=== PATIENT | female | born 1945 | race Caucasian/White ===

== ENCOUNTER → 2017-02-25 | Outpatient (CLI) | payer MEDICARE, MEDICAID ==
--- NOTE | 2017-02-25 13:43 | DIREP ---
PROCEDURE:CT CHEST ABDOMEN PELVIS W/CONTRAST, CT CHEST WITHOUT CONTRAST, COMBINED REPORT COMPARISON:[facility], CT, CT-CTA ABDOMEN/PELVIS W/WO CONTRAST, 08/27/2012, 12:15 PM. INDICATIONS:WEIGHT LOSS, POSS LUNG CANCER, TOBACCO DEPENDENCE TECHNIQUE:After obtaining the patient's consent, CT images were obtained without and with non-ionic intravenous contrast material. Oral contrast was also given. FINDINGS: CHEST: LUNGS:No pulmonary consolidation or mass. There is a 1.3 cm bulla in the right lower lobe.. MEDIASTINUM:Normal. CARDIAC:Normal heart size. No pericardial effusion. PLEURA/CHEST WALL:Normal. OTHER:Normal. ABDOMEN/PELVIS: LIVER/BILIARY:There are 2 sub cm areas in the right hepatic lobe liver too small to characterize but likely represent benign hemangiomas or benign cysts. Cholecystectomy clips. No biliary ductal dilatation. PANCREAS:Normal. SPLEEN:Normal. KIDNEYS:Normal. ADRENALS:Normal. AORTA/VASCULAR:There is scattered calcification in the abdominal and minimal calcification in the thoracic aorta. No aortic aneurysm or dissection. RETROPERITONEUM:Normal. BOWEL/MESENTERY:Compare to 08/27/2012, the patient has undergone interval surgical removal of the cecum, ascending, and proximal transverse colon with an enterocolic surgical anastomosis noted in the mid transverse colon. No intestinal obstruction, free air, free fluid, or mesenteric inflammation. Multiple colonic diverticula without diverticulitis. ABDOMINAL WALL:Normal. PELVIC NODES:Normal. PELVIC ORGANS:Normal. BONES:No acute pathology. Minimal degenerative changes of the spine. CONCLUSION: 1. No evidence of lung mass or other acute cardiac or pulmonary disease. 2. Previous right hemicolectomy and cholecystectomy. 3. There is no finding on this examination which would account for the patient's history of weight loss. 4. There are 2 subcentimeter low-density areas in the right hepatic lobe which are too small to characterize but which likely represent benign hemangiomas or benign cysts. Dictated by: Mauricio Dickson M.D. on 02/25/2017 at 01:30 PM
--- NOTE | 2017-02-25 13:44 | DIREP ---
PROCEDURE:CT CHEST W/O COMPARISON:None. INDICATIONS:WEIGHT LOSS, POSS LUNG CANCER, NAUSEA, TOBACCO DEPENDENCE TECHNIQUE:Helical sections through the chest were performed from the lung apices through the diaphragms without IV contrast. Sagittal and coronal reconstructions are obtained from source images. FINDINGS: CONCLUSION:Please see the combined report of CT scan of the chest without contrast, and CT scan of the chest abdomen and pelvis with IV contrast, 02/25/2017. Dictated by: Mauricio Dickson M.D. on 02/25/2017 at 01:43 PM
== END | disposition home or self-care (01) ==
LOC: RAD 09:20
PROVIDERS: ATTEND Family Medicine
DX: R63.4 Abnormal weight loss (principal); R11.0 Nausea; F17.200 Nicotine dependence, unspecified, uncomplicated; Z90.49 Acquired absence of other specified parts of digestive tract
CPT/HCPCS: 36415; 71270; 74177; 82565; Q9967

== ENCOUNTER 2020-06-25 10:02 | Inpatient (IN) | payer MEDICARE, MEDICAID ==
[~2020-06-25] VITALS: Ht 162.6 cm; Wt 61.2 kg
[2020-06-25] VITALS (8 sets, daily range): BP systolic 116–157; BP diastolic 54–94
[~2020-06-25 10:02] MED LIST: AMLO-169 PO; ASPI81TA52 PO; BENZ0.5T35 PO; ESOM40CA PO; FENO145T17 PO; GABA600T7 PO; HALO5TAB PO; LEVO5TAB2 PO; LEVO75TA6 PO; LOSA50TA14 PO; MIRT30TA4 PO; ROPI0.5T PO
[2020-06-25] MEDS ORDERED: ZOFRAN IV STA (10:07)
[2020-06-25] MEDS ORDERED: MORPHINE SULFATE IV STA (10:07)
--- NOTE | 2020-06-25 10:11 | NUR ---
ARRIVAL PATIENT ARRIVED TO ED3 VIA [facility] BY [facility], C/O OF LEFT LEG PAIN FROM A FALL LAST NIGHT AT APPROX 2130, PATIENT STATES SHE LAID ON THE FLOOR UNTIL HER HOME HEALTH NURSE FOUND HER, EMS INITIATED A 20G TO THE RIGHT AC AND GAVE FENTANYL 25MIC IV REVENUE AGENT, SHIPWRIGHT APPLIED AND VITAL SIGNS OBTAINED, DOCTOR TRENTON TO ROOM TO SEE PATIENT.
--- NOTE | 2020-06-25 10:22 | ER.PDOC ---
General Chief Complaint: Trauma Stated Complaint: FALL Time seen by MD: 11:11 Source: patient Exam Limitations: no limitations History of Present Illness Onset: yesterday Where: home Context: fall Severity: moderate Allergies: Coded Allergies: sulfamethoxazole (Verified Allergy, Unknown, 04/14/18) tetanus and diphtheria toxoids (Verified Allergy, Unknown, 04/14/18) trimethoprim (Verified Allergy, Unknown, 04/14/18) Home Meds Reported Medications Haloperidol (HALOPERIDOL) 5 Mg Tablet, 1 TAB PO HS, #30 TAB 2 Refills 04/14/18 Mirtazapine (MIRTAZAPINE) 30 Mg Tablet, 1 TAB PO HS, #30 TAB 2 Refills 04/14/18 Losartan Potassium (LOSARTAN POTASSIUM) 50 Mg Tablet, 1 TAB PO DAILY, #90 TAB 3 Refills 04/14/18 Levocetirizine Dihydrochloride (LEVOCETIRIZINE DIHYDROCHLORIDE) 5 Mg Tablet, 1 TAB PO HS, #30 TAB 5 Refills 04/14/18 Aspirin (ASPIR-LOW) 81 Mg Tablet.dr, 1 TAB PO DAILY, #90 TAB 3 Refills 04/14/18 Ropinirole Hcl (REQUIP) 0.5 Mg Tablet, 1 TAB PO HS, #30 TAB 2 Refills 04/14/18 Levothyroxine Sodium (LEVOTHYROXINE SODIUM) 75 Mcg Tablet, 1 TAB PO DAILY, #90 TAB 3 Refills 04/14/18 Amlodipine Besylate (AMLODIPINE BESYLATE) 5 Mg Tablet, 1 TAB PO DAILY, #90 TAB 3 Refills 04/14/18 Benztropine Mesylate (BENZTROPINE MESYLATE) 0.5 Mg Tablet, 1 TAB PO BID, #60 TAB 2 Refills 04/14/18 Fenofibrate Nanocrystallized (FENOFIBRATE) 145 Mg Tablet, 1 TAB PO DAILY, #90 TAB 3 Refills 04/14/18 Esomeprazole Magnesium (NEXIUM) 40 Mg Capsule.dr, 1 CAP PO DAILY, #90 CAP 3 Refills 04/14/18 Gabapentin (GABAPENTIN) 600 Mg Tablet, 1 TAB PO HS, #90 TAB 04/14/18 Past Medical History Medical History: thyroid disease, other Surgical History: cholecystectomy, other Social History Alcohol Use: none Drug Use: none Reviewed Nursing Reviewed: Vital Signs, Abn. Noted Review of Systems All Other Systems: Reviewed and Negative Physical Exam General Appearance: Alert, No Apparent Distress Foot: nml inspection, non-tender, nml color/temp, skin intact Ankle: nml inspection, non-tender, nml ROM, no joint swelling, skin intact Knee: nml inspection, non-tender, nml ROM, no joint swelling Thigh/Hip: tenderness, swelling, ecchymosis, limited hip ROM by pain, hip pain on leg movement 1 - tender, deformity Gait: unable to bear weight Neuro/Vasc/Tendon: sensation nml, motor nml, no vascular compromise, tendon function nml Skin: warm/dry Head/ENT: nml inspection, pharynx nml Neck/Back: nml inspection, non-tender Abdomen: non-tender, pelvis stable Results/Orders Results/Orders Orders - KINDRA CHOWDHURY MD Cbc With Auto Diff (06/25/20 10:04) Comprehensive Metabolic Panel (06/25/20 10:04) Creatine Kinase (06/25/20 10:04) Creatine Kinase Mb (06/25/20 10:04) Troponin I (06/25/20 10:04) Probnp B-Type Flight/Transport Nurse (06/25/20 10:04) PT (06/25/20 10:04) Partial Thromboplastin Time. (06/25/20 10:04) Xr Chest 1v (06/25/20 10:04) Ekg-Routine (06/25/20 10:04) Type And Screen (06/25/20 10:04) Xr Femur Lt (06/25/20 10:06) Morphine Sulfate (Morphine Sulfate) (06/25/20 10:07) 0.9 % Sodium Chloride (Ns 1000ml) (06/25/20 10:30) Ondansetron Hcl/Pf (Zofran) (06/25/20 10:07) [place] (06/25/20 10:09) Urinalysis (06/25/20 10:09) 0.9 % Sodium Chloride (Ns 1000ml) (06/25/20 10:24) Ondansetron Hcl/Pf (Zofran) (06/25/20 10:25) Morphine Sulfate (Morphine Sulfate) (06/25/20 10:25) Vital Signs Date Time Temp Pulse Resp B/P (MAP) Pulse Ox O2 Delivery O2 Flow Rate FiO2 06/25/20 11:30 97.1 76 18 143/94 (110) 96 Room Air 06/25/20 11:30 18 06/25/20 11:00 18 06/25/20 11:00 97.1 76 18 116/54 (74) 96 Room Air 06/25/20 10:30 18 06/25/20 10:30 97.1 75 18 137/80 (99) 96 Room Air 06/25/20 10:07 18 06/25/20 10:03 97.1 80 18 96 06/25/20 10:03 97.1 80 18 157/76 (103) 96 Room Air 06/25/20 10:03 97.1 80 18 Administered Medications Medications (Trade) Dose Ordered Sig/Reji Route PRN Reason Start Time Stop Time Status Last Admin Dose Admin Morphine Sulfate (Morphine Sulfate) 4 mg STAT STAT IV 06/25/20 10:07 06/25/20 10:09 DC 06/25/20 10:35 4 MG Ondansetron HCl (Zofran) 4 mg STAT STAT IV 06/25/20 10:07 06/25/20 10:09 DC 06/25/20 10:39 4 MG Sodium Chloride 1,000 ml @ 0 mls/hr Q0M ONCE IV 06/25/20 10:30 06/25/20 10:31 DC 06/25/20 10:35 1,000 MLS/HR Laboratory Tests Test 06/25/20 10:20 White Blood Count 20.0 10^3/uL (4.5-11.0) H Red Blood Count 4.20 10^6/uL (4.00-5.20) Hemoglobin 13.1 g/dL (12.0-15.0) Hematocrit 37.4 % (36.0-46.0) Mean Corpuscular Volume 89.0 fL (78-100) Mean Corpuscular Hemoglobin 31.2 pg (26-34) Mean Corpuscular Hemoglobin Concent 35.0 g/dL (33-36.5) Red Cell Distribution Width 13.1 % (11.5-14.5) Platelet Count 331 10^3/uL (150-400) Mean Platelet Volume 9.8 fL (7.8-11.0) Neutrophils (%) (Auto) 88.1 % (41.0-85.0) H Lymphocytes (%) (Auto) 4.0 % (24.0-44.0) *L Monocytes (%) (Auto) 7.6 % (5.0-12.0) Neutrophils # (Auto) 17.6 10^3/uL (1.8-7.7) H Lymphocytes # (Auto) 0.79 10^3/uL1 (1.0-4.8) L Monocytes # (Auto) 1.5 10^3/uL (0.3-0.8) H Absolute Immature Granulocyte (auto 0.04 10^3 u/L (0-2) Absolute Eosinophils (auto) 0.0 10^3/uL (0.0-0.2) Immature Granulocytes % 0.20 % (0.00-0.50) Eosinophils % 0.0 % (0.0-5.0) Basophils % 0.1 % (0.0-0.2) Basophils # 0.0 10^3/uL (0.0-0.1) Prothrombin Time 10.6 SEC (9.3-11.3) Prothrombin Time INR (Non-Therap) 1.0 Activated Partial Thromboplast Time 26.5 SEC (24.67-30.72) Sodium Level 128 mmol/L (132-145) L Potassium Level 3.9 mmol/L (3.6-5.2) Chloride Level 93.0 mmol/L (96-109) L Carbon Dioxide Level 23.1 mmol/L (20.0-32) Anion Gap 15.8 Blood Urea Nitrogen 8 mg/dL (7-18) Creatinine 0.96 mg/dL (0.59-1.40) Estimated GFR () 68.4 (>/=60) Est GFR (CKD-EPI)(Non-Afr Malagasy) 56.5 (>/=60) BUN/Creatinine Ratio 8.0 Glucose Level 181 mg/dL (70-110) H Calcium Level 8.9 mg/dL (8.4-10.5) Total Bilirubin 0.3 mg/dL (0.2-1.0) Aspartate Amino Transferase (AST) 21 U/L (0-35) Alanine Aminotransferase (ALT) 13 U/L (12-78) Alkaline Phosphatase 111 U/L (50-136) Total Creatine Kinase 253 U/L (26-192) H Creatine Kinase MB 2.8 ng/mL (0.5-3.6) Troponin I < 0.02 ng/mL (0.00-0.05) Pro-B-Type Natriuretic Peptide 76 pg/mL (0-450) Total Protein 6.7 g/dL (6.4-8.2) Albumin 3.4 g/dL (3.4-5.0) Globulin 3.3 Albumin/Globulin Ratio 1.030 Blood Bank Test 06/25/20 10:20 Antibody Screen NEGATIVE Blood Type A NEGATIVE Consult/PCP Time Consult/PCP Called: 11:22 Consult/PCP: DR TODD, DR UNGER, ER DEPART Departure Time of Disposition: 12:00 Disposition: ADMITTED INPATIENT Impression: Primary Impression: Fracture, hip Condition: Improved Referrals: STEVEN CAUSEY (PCP) PRIMARY CARE PROVIDER Duration or Time Spent with Pa: KINDRA HUNG MD Jun 25, 2020 10:22
[2020-06-25] MEDS ORDERED: NS 1000ML 1,000 ML ONE (10:24)
[2020-06-25] MEDS ORDERED: ZOFRAN ONE (10:25)
[2020-06-25] MEDS ORDERED: MORPHINE SULFATE ONE (10:25)
[2020-06-25 10:26] LABS: BASOPHIL % 0.1 % (0.0-0.2); LYMPHOCYTES # 0.79 10^3/uL1 (1.0-4.8); MEAN CORP HGB 31.2 pg (26-34); MONOCYTES # 1.5 10^3/uL (0.3-0.8); MONOCYTES % 7.6 % (5.0-12.0); NEUTROPHIL # 17.6 10^3/uL (1.8-7.7); NEUTROPHILS % 88.1 % (41.0-85.0); PLATELET COUNT 331 10^3/uL (150-400); RED CELL DISTRIBUTION WIDTH 13.1 % (11.5-14.5)
[2020-06-25] MEDS ORDERED: NS 1000ML 1,000 ML IV ONE (10:30)
[2020-06-25 10:58] LABS: ALANINE AMINOTRANSFERASE(ML) 13 U/L (12-78); ALKALINE PHOSPHATASE 111 U/L (50-136); ASPARTATE AMINO TRANSFERASE 21 U/L (0-35); CALCIUM 8.9 mg/dL (8.4-10.5); CARBON DIOXIDE 23.1 mmol/L (20.0-32); GLUCOSE 181 mg/dL (70-110)
--- NOTE | 2020-06-25 11:01 | PCM.EKG ---
[facility] Test Date: 2020-06-25 Test Time: 10:58:15 Pat Name: GODFREY BRUNSON Department: Room: Gender: F Reject Opener And Filler: VIC : 1945 Requested By: KINDRA CHOWDHURY Order Number: [id number] Reading MD: Measurements Intervals [place] Rate: 73 P: -25 WA: 157 QRS: 75 QRSD: 85 T: 72 QT: 388 QTc: 428 Interpretive Statements Sinus rhythm Atrial premature complexes Probable left atrial enlargement Minimal ST elevation, anterior leads Compared to ECG 04/14/2018 13:31:55 Atrial premature complex(es) now present ST (T wave) deviation now present Please click the below link to view image of tracing.
--- NOTE | 2020-06-25 11:23 | NUR ---
PEREZ CHOWDHURY ATTEMPTED TO CALL DOCTOR TODD, LEFT MESSAGE.
--- NOTE | 2020-06-25 11:43 | NUR ---
PEREZ CHOWDHURY SPOKE WITH DOCTOR TODD, WILL CONSULT IF HOSPITALIST WILL ADMIT.
--- NOTE | 2020-06-25 11:45 | NUR ---
CORNEL CHOWDHURY ATTEMPTED TO CALL DOCTOR UNGER LEFT MESSAGE.
--- NOTE | 2020-06-25 12:11 | DIREP ---
PROCEDURE:CHEST 1 VIEW COMPARISON:None. INDICATIONS:fall FINDINGS: LUNGS/PLEURA:No significant pulmonary parenchymal abnormalities. No effusions. VASCULATURE:Normal. Unremarkable pulmonary vasculature. CARDIAC:Normal. No cardiac silhouette abnormality or cardiomegaly. MEDIASTINUM:Calcified plaque in the aorta. BONES:Bones are osteopenic. OTHER:Negative. CONCLUSION:No acute cardiopulmonary findings. Dictated by: Delfin Lock M.D. on 06/25/2020 at 12:04 PM
--- NOTE | 2020-06-25 12:12 | DIREP ---
PROCEDURE:XRAY FEMUR 2 VWS-LT COMPARISON:None. INDICATIONS:fall FINDINGS: BONES:Comminuted fracture of the femoral inter trochanteric region extends to the femoral metaphysis. With displaced fragments of the lesser trochanter, greater trochanter. Bones are osteopenic. Small osteophytes throughout the knee. JOINTS:Moderate right hip joint space loss. Severe medial compartment knee joint space loss. SOFT TISSUES:Normal. OTHER:No additional findings. CONCLUSION:Acute comminuted fracture of the femoral inter trochanteric region. Dictated by: Delfin Lock M.D. on 06/25/2020 at 12:10 PM
[2020-06-25 12:33] LABS: BAND NEUTROPHILS 1 % (2-6); LYMPHOCYTE 5 % (25-36); MONOCYTE 8 % (3-9); SEGMENTED NEUTROPHILS 86 % (31-76)
[2020-06-25] MEDS ORDERED: LOVENOX SQ STA (12:44)
--- NOTE | 2020-06-25 12:47 | DIREP ---
PROCEDURE:XRAY PELVIS 1-2 VWS COMPARISON:None. INDICATIONS:HIP INJURY FINDINGS: BONES:Bones are osteopenic. There is a comminuted left femoral inter trochanteric fracture. Displaced fragments of the lesser trochanter and greater trochanter. JOINTS:Normal. SOFT TISSUES:Normal. OTHER:No additional findings. CONCLUSION:Acute left femoral inter trochanteric fracture. Dictated by: Delfin Lock M.D. on 06/25/2020 at 12:45 PM
--- NOTE | 2020-06-25 12:47 | NUR ---
INTAKE /OUTPUT NO INTAKE/ 200ML OUTPUT VIA PORTILLO.
--- NOTE | 2020-06-25 12:48 | NUR ---
ANESTHESIA GLENYS URBINA [employer]ICAL MARKETING MANAGER NOTIFIED OF SURGERY IN AM.
[2020-06-25] MEDS ORDERED: ZOFRAN IV PRN (13:00)
[2020-06-25] MEDS ORDERED: MORPHINE SULFATE IV PRN ×2 (13:00→16:33)
--- NOTE | 2020-06-25 13:36 | PCM.HP ---
History of Present Illness Hx of Present Illness 74-year-old female who has past medical history significant for schizophrenia, COPD, DM, active smoking, hypothyroidism who presented to ED after she fell in the kitchen yesterday night. Patient was using a walker loss balance and sustained a GLF. She complain of severe pain to the left hip and was not able to raise up from the floor. Early this morning she was found laying in the floor by a visiting nurse. She was brought to the ED where she was evaluated and found to have Acute left femur intertrochanteric fracture. Patient is admitted for orthopedic evaluation. Past Medical History PMH-Pulmonary: (1) COPD (chronic obstructive pulmonary disease) Status: Chronic ICD Code: J44.9 - Chronic obstructive pulmonary disease, unspecified SNOMED: 30454742 PMH-Psych: (1) Paranoid schizophrenia Status: Chronic ICD Code: F20.0 - Paranoid schizophrenia SNOMED: 84610286 Psychiatric: Schizophrenia PMH-Endocrine: (1) Diabetes 1.5, managed as type 2 Status: Chronic ICD Code: E10.9 - Type 1 diabetes mellitus without complications SNOMED: 083740217 Travel History EBOL[place] RISK:Travel to/contact w: No Review of Systems Musculoskeletal: leg pain Neurological: Weakness (Generalized weakness. Patient use a walker), Confusion Allergies: Coded Allergies: sulfamethoxazole (Verified Allergy, Unknown, 04/14/18) tetanus and diphtheria toxoids (Verified Allergy, Unknown, 04/14/18) trimethoprim (Verified Allergy, Unknown, 04/14/18) Scheduled Amlodipine Besylate (Amlodipine Besylate), 1 TAB PO DAILY, (Reported) Aspirin (Aspir-Low), 1 TAB PO DAILY, (Reported) Benztropine Mesylate (Benztropine Mesylate), 1 TAB PO BID, (Reported) Esomeprazole Magnesium (Nexium), 1 CAP PO DAILY, (Reported) Fenofibrate Nanocrystallized (Fenofibrate), 1 TAB PO DAILY, (Reported) Gabapentin (Gabapentin), 1 TAB PO HS, (Reported) Haloperidol (Haloperidol), 1 TAB PO HS, (Reported) Levocetirizine Dihydrochloride (Levocetirizine Dihydrochloride), 1 TAB PO HS, (Reported) Levothyroxine Sodium (Levothyroxine Sodium), 1 TAB PO DAILY, (Reported) Losartan Potassium (Losartan Potassium), 1 TAB PO DAILY, (Reported) Mirtazapine (Mirtazapine), 1 TAB PO HS, (Reported) Ropinirole Hcl (Requip), 1 TAB PO HS, (Reported) VTE VTE Risk Total Score: 2 VTE Risk Score VTE Risk: Score 0-1 = Low Risk (Aggressive mobilization; early ambulation; no VTE prophylaxis required) Score 2: Moderate Risk (Intermittent/Pneumatic Compression Device OR Lovenox/Heparin/Coumadin) Score 3-4: High Risk (Intermittent/Pneumatic Compression Device AND Lovenox/Heparin/Coumadin) Score > or =5: Highest Risk (Intermittent/Pneumatic Compression Device AND Lovenox/Heparin/Coumadin) Antico:Hep/LMWH/Coum/Xarelto: Yes Mechanical device ordered: Yes VTE VTE Present on Admission: No Currently receiving anticoagul: No VTE Risk Total Score: 2 Antico:Hep/LMWH/Coum/Xarelto: Yes Mechanical device ordered: Yes Exam Vital Signs Vital Signs Date Time Temp Pulse Resp B/P (MAP) Pulse Ox O2 Delivery O2 Flow Rate FiO2 06/25/20 12:46 97.1 76 18 131/59 (83) 96 Room Air General Appearance: Alert, Oriented X3, Cooperative HEENT: Atraumatic, PERRLA Respiratory: Clear to auscultation Cardiovascular: Regular rate, Other Abdominal: Normal bowel sounds Extremities: No cyanosis, No edema, No tenderness/swelling (To left hip area) Skin: No rash, No breakdown Neuro: Normal speech, Strength at 5/5 X4 ext Psych/Mental Status: Mental status NL, Mood NL, Other Assessment/Plan Assessment/Plan Assessment/Plan 74-year-old female with history of paranoid schizophrenia, diabetes mellitus, COPD, hypothyroidism presented to ED after she had GLF. In ED patient was found to have a left hip fracture. Patient will be consulted by orthopedist. Patient History: Patient reports no known family medical history. Plan 1. Left hip fracture Patient is prone to fall and is using a walker. She sustained a prior fracture of the femur on the right side that was repaired last year. She will require PT OT evaluation and possible referral for rehab. Tamayo KATHRYN Perioperative risk is 0.4%. Risk of myocardial infarction or cardiac arrest intraoperatively or after 30 days postop. plan N.p.o. from midnight. Orthopedic consult Pain management Resume home meds. Problems 2. COPD Patient is a long-term smoker. Currently on inhalers. No evidence of acute exacerbation Resume inhalers Nicotine patch 3. Hypothyroidism Resume Synthroid 25 mcg daily 4. Paranoid schizophrenia. Relatively stable. Patient is on multiple medications including Haldol, benztropine, gabapentin, Plan Resume home medications 5. diabetes mellitus type Plan SSI BOBBY BROOKS MD Jun 25, 2020 13:36
[2020-06-25] MEDS ORDERED: LOVENOX SQ ONE (14:10)
[2020-06-25] MEDS: ULTRAM PO PRN ×4 (14:44→22:29)
[2020-06-25] MEDS: HUMULIN R SQ SCH ×2 (17:28→21:00)
[2020-06-25] MEDS ORDERED: REQUIP ONE (20:19)
[2020-06-25] MEDS ORDERED: HALDOL ONE (20:21)
[2020-06-25] MEDS ORDERED: COGENTIN ONE (20:21)
[2020-06-25] MEDS: REMERON PO SCH (20:59)
[2020-06-25] MEDS: HALDOL PO SCH (21:00)
[2020-06-25] MEDS: NEURONTIN PO SCH (21:01)
[2020-06-25] MEDS: COGENTIN PO SCH (21:02)
[2020-06-25] MEDS: REQUIP PO SCH (21:02)
[2020-06-25] MEDS ORDERED: NICOTINE 21MG PATCH TD ONE (21:45)
[2020-06-25] MEDS: NICOTINE 21MG PATCH TD SCH (22:28)
[2020-06-26] VITALS (11 sets, daily range): BP systolic 84–149; BP diastolic 46–84
--- NOTE | 2020-06-26 00:15 | CNH ---
DATE OF CONSULTATION: 06/25/2020 CHIEF COMPLAINT: Painful left hip. HISTORY OF PRESENT ILLNESS: The patient is a 74-year-old female who is a household ambulator with a walker, fell at home yesterday afternoon and was unable to ambulate. She was not found until this morning when she was found by a neighbor brought to the [facility] for further evaluation and treatment. The patient denies any other areas of tenderness or deformity. PHYSICAL EXAMINATION: EXTREMITIES: The patient's exam today shows that she has shortening and external rotation of the left hip and left lower extremity. She has no open wounds or fracture blisters. There is decreased range of motion about the left hip secondary to pain. She has no tenderness about the left knee, left lower leg, foot or ankle. Her upper extremities and the right lower extremity have no areas of tenderness or deformity. NEUROLOGIC: The patient is awake and alert. She is oriented x 3. Cranial nerves 2-12 grossly intact. She has good dorsi and plantar flexion of her left foot and ankle with normal sensation. IMAGING STUDIES: The x-rays showed that she has a displaced 4-part left intertrochanteric fracture of the hip. ASSESSMENT: Closed displaced intertrochanteric fracture, left hip. PLAN: The patient will be admitted by the hospitalist. The patient once is stabilized, will be taken to the operating room for open reduction and internal fixation. The patient understands the risks and hazards of the treatment plan and agrees. Arnaldo Nix MD DR: DEVANG/tejal JOB# [id number]
--- NOTE | 2020-06-26 04:11 | NUR ---
Surgical bath given. Linens and gown changed. Consent for procedure signed. Will continue to monitor.
[2020-06-26 05:55] LABS: APPEARANCE,URINE CLOUDY (CLEAR); BILIRUBIN,URINE NEGATIVE (NEGATIVE); UA COLOR YELLOW (YELLOW); UROBILINOGEN,URINE 0.2 (NEGATIVE)
[2020-06-26] MEDS: SYNTHROID PO SCH (06:30)
[2020-06-26] MEDS: HUMULIN R SQ SCH ×4 (07:30→21:00)
[2020-06-26] MEDS ORDERED: NS 1000ML 1,000 ML ONE ×3 (08:42→16:30)
--- NOTE | 2020-06-26 08:52 | NUR ---
Prt was alert and oriented with no sign of distress. Pt is taken to surgery. Morning Meds are held and Pt daughter is aware of pt going to surgery
[2020-06-26] MEDS: COGENTIN PO SCH ×2 (09:00→20:55)
[2020-06-26] MEDS ORDERED: DILAUDID IV ONE (11:00)
[2020-06-26] MEDS ORDERED: ANCEF ONE (12:15)
[2020-06-26] MEDS ORDERED: NS 100ML 100 ML IV ONE (12:15)
[2020-06-26] MEDS ORDERED: SODIUM CHLORIDE IRR BOTTLE IR ONE ×2 (12:21→15:33)
[2020-06-26] MEDS ORDERED: SENSORCAINE 0.5% VIAL ONE (13:01)
[2020-06-26] MEDS ORDERED: OFIRMEV 100 ML IV ONE (13:01)
[2020-06-26] MEDS ORDERED: ZOFRAN ONE (13:02)
[2020-06-26] MEDS ORDERED: VERSED ONE (13:02)
[2020-06-26] MEDS ORDERED: TRANEXAMIC ACID ONE (13:02)
[2020-06-26] MEDS ORDERED: LIDOCAINE 2% VIAL ONE (13:02)
[2020-06-26] MEDS ORDERED: DIPRIVAN IV ONE (13:03)
[2020-06-26] MEDS ORDERED: SUBLIMAZE ONE (13:03)
[2020-06-26] MEDS ORDERED: WATER ONE (13:57)
--- NOTE | 2020-06-26 14:10 | PRM.PN ---
Subjective Subjective Date: Jun 26, 2020 Time: 14:07 Subjective 74-year-old female with history of fall with left intertrochanteric fracture. Patient is scheduled for surgery today. She has prior history of active smoking, schizophrenia. She also has COPD which appears stable. Patient History: Patient reports no known family medical history. VTE VTE Risk Total Score: 2 VTE Risk Score VTE Risk: Score 0-1 = Low Risk (Aggressive mobilization; early ambulation; no VTE prophylaxis required) Score 2: Moderate Risk (Intermittent/Pneumatic Compression Device OR Lovenox/Heparin/Coumadin) Score 3-4: High Risk (Intermittent/Pneumatic Compression Device AND Lovenox/Heparin/Coumadin) Score > or =5: Highest Risk (Intermittent/Pneumatic Compression Device AND Lovenox/Heparin/Coumadin) Antico:Hep/LMWH/Coum/Xarelto: Yes Mechanical device ordered: Yes Review of Systems Musculoskeletal: leg pain Neurological: Weakness (Generalized weakness. Patient use a walker), Confusion Allergies: Coded Allergies: sulfamethoxazole (Verified Allergy, Unknown, 04/14/18) tetanus and diphtheria toxoids (Verified Allergy, Unknown, 04/14/18) trimethoprim (Verified Allergy, Unknown, 04/14/18) Scheduled Amlodipine Besylate (Amlodipine Besylate), 1 TAB PO DAILY, (Reported) Aspirin (Aspir-Low), 1 TAB PO DAILY, (Reported) Benztropine Mesylate (Benztropine Mesylate), 1 TAB PO BID, (Reported) Esomeprazole Magnesium (Nexium), 1 CAP PO DAILY, (Reported) Fenofibrate Nanocrystallized (Fenofibrate), 1 TAB PO DAILY, (Reported) Gabapentin (Gabapentin), 1 TAB PO HS, (Reported) Haloperidol (Haloperidol), 1 TAB PO HS, (Reported) Levocetirizine Dihydrochloride (Levocetirizine Dihydrochloride), 1 TAB PO HS, (Reported) Levothyroxine Sodium (Levothyroxine Sodium), 1 TAB PO DAILY, (Reported) Losartan Potassium (Losartan Potassium), 1 TAB PO DAILY, (Reported) Mirtazapine (Mirtazapine), 1 TAB PO HS, (Reported) Ropinirole Hcl (Requip), 1 TAB PO HS, (Reported) Objective Vitals and I/O Vital Sign - Last 24 Hours 11/15/20 06/25/20 06/25/20 06/26/20 16:13 20:15 22:55 00:15 Temp 98.1 98.5 98.3 Pulse 74 72 86 Resp 20 20 B/P (MAP) 132/60 (84) 103/46 (65) Pulse Ox 97 95 O2 Delivery Room Air Room Air Room Air 06/26/20 06/26/20 06/26/20 04:00 07:26 07:30 Temp 98.1 97.7 Pulse 80 74 Resp 18 18 B/P (MAP) 149/47 (81) 143/57 (85) Pulse Ox 97 93 O2 Delivery Room Air Room Air Intake and Output 06/26/20 06:59 Intake Total 850 ml Output Total 1100 ml Balance -250 ml General: Alert, Oriented X3, Cooperative HEENT: Atraumatic, PERRLA Lungs: Clear to auscultation Heart: Regular rate, Other Abdomen: Normal bowel sounds Extremities: No cyanosis, No edema, No tenderness/swelling (To left hip area) Neuro: Normal speech, Strength at 5/5 X4 ext Psych/Mental Status: Mental status NL, Mood NL, Other All Results(Lab/Rad) Laboratory Tests Test 06/25/20 16:46 06/25/20 21:00 06/26/20 04:37 06/26/20 05:30 Bedside Glucose 117 189 142 Urine Collection Type VOID Urine Color YELLOW Urine Appearance CLOUDY Urine Bilirubin NEGATIVE MG/DL Urine Ketones NEGATIVE Urine Specific Hamilton 1.020 Urine pH 5.5 Urine Protein NEGATIVE Urine Urobilinogen 0.2 Urine Nitrate NEGATIVE Urine Leukocyte Esterase SMALL Urine Blood TRACE Urine RBC 0-2 RBC/HPF Urine WBC 10-25 WBC/HPF Urine Squamous Epithelial Cells FEW #/HPF Urine Bacteria MANY Urine Glucose NEGATIVE Test 06/26/20 09:15 Bedside Glucose 124 Current Medications Medications (Trade) Dose Ordered Sig/Reji Route PRN Reason Start Time Stop Time Status Last Admin Dose Admin Morphine Sulfate (Morphine Sulfate) 4 mg STAT STAT IV 06/25/20 10:07 06/25/20 10:09 DC 06/25/20 10:35 Sodium Chloride 1,000 ml @ 0 mls/hr Q0M ONCE IV 06/25/20 10:30 06/25/20 10:31 DC 06/25/20 10:35 Ondansetron HCl (Zofran) 4 mg STAT STAT IV 06/25/20 10:07 06/25/20 10:09 DC 06/25/20 10:39 Sodium Chloride 1,000 ml @ ud STK-MED ONCE .ROUTE 06/25/20 10:24 06/25/20 10:26 DC Ondansetron HCl (Zofran) 4 mg STK-MED ONCE .ROUTE 06/25/20 10:25 06/25/20 10:26 DC Morphine Sulfate (Morphine Sulfate) 4 mg STK-MED ONCE .ROUTE 06/25/20 10:25 06/25/20 10:27 DC Tramadol HCl (Ultram) 50 mg Q4HR PRN PO PAIN 1 - 3 06/25/20 13:00 07/25/20 12:59 06/25/20 22:29 Tramadol HCl (Ultram) 100 mg Q4HR PRN PO PAIN 4 - 6 06/25/20 13:00 07/25/20 12:59 Morphine Sulfate (Morphine Sulfate) 3 mg Q6HR PRN IV PAIN 7 - 10 06/25/20 13:00 06/25/20 16:33 DC Ondansetron HCl (Zofran) 4 mg Q4H PRN IV NAUSEA / VOMITING 06/25/20 13:00 07/25/20 12:59 Enoxaparin Sodium (Lovenox) 40 mg STAT STAT SQ 06/25/20 12:44 06/25/20 14:06 DC 06/25/20 14:43 Insulin Human Regular (Humulin R) ACHS SQ 06/25/20 17:30 07/25/20 17:29 Enoxaparin Sodium (Lovenox) 40 mg STK-MED ONCE SQ 06/25/20 14:10 06/25/20 14:12 DC Amlodipine Besylate (Norvasc) 5 mg DAILY PO 06/26/20 09:00 07/26/20 08:59 Aspirin (Aspirin Ec) 81 mg DAILY PO 06/26/20 09:00 07/26/20 08:59 Pantoprazole Sodium (Protonix) 40 mg DAILY PO 06/26/20 09:00 07/26/20 08:59 Fenofibrate (Tricor) 145 mg DAILY PO 06/26/20 09:00 07/26/20 08:59 Haloperidol (Haldol) 5 mg HS PO 06/25/20 21:00 07/25/20 20:59 06/25/20 21:00 Levothyroxine Sodium (Synthroid) 75 mcg ACB PO 06/26/20 06:30 07/26/20 06:29 Losartan Potassium (Cozaar) 50 mg DAILY PO 06/26/20 09:00 07/26/20 08:59 Benztropine Mesylate (Cogentin) 0.5 mg BID PO 06/25/20 21:00 07/25/20 20:59 06/25/20 21:02 Gabapentin (Neurontin) 600 mg HS PO 06/25/20 21:00 07/25/20 20:59 06/25/20 21:01 Loratadine (Claritin) 10 mg DAILY PO 06/26/20 09:00 07/26/20 08:59 Mirtazapine (Remeron) 30 mg HS PO 06/25/20 21:00 07/25/20 20:59 06/25/20 20:59 Ropinirole HCl (Requip) 0.5 mg HS PO 06/25/20 21:00 07/25/20 20:59 06/25/20 21:02 Morphine Sulfate (Morphine Sulfate) 3 mg Q6HR PRN IV PAIN 7 - 10 06/25/20 16:33 07/25/20 12:59 Ropinirole HCl (Requip) 1 mg STK-MED ONCE .ROUTE 06/25/20 20:19 06/25/20 20:21 DC Benztropine Mesylate (Cogentin) 1 mg STK-MED ONCE .ROUTE 06/25/20 20:21 06/25/20 20:22 DC Haloperidol (Haldol) 5 mg STK-MED ONCE .ROUTE 06/25/20 20:21 06/25/20 20:23 DC Nicotine (Nicotine 21mg Patch) 1 each DAILY TD 06/25/20 21:00 07/25/20 20:59 06/25/20 22:28 Nicotine (Nicotine 21mg Patch) 1 each STK-MED ONCE TD 06/25/20 21:45 06/25/20 21:48 DC Sodium Chloride 1,000 ml @ ud STK-MED ONCE .ROUTE 06/26/20 08:42 06/26/20 08:44 DC Sodium Chloride 1,000 ml @ 100 mls/hr Q10H IV 06/26/20 09:00 07/26/20 08:59 Hydromorphone HCl (Dilaudid) 0.5 mg OT ONCE IV 06/26/20 11:00 06/26/20 12:25 DC 06/26/20 11:18 Sodium Chloride 100 ml @ ud STK-MED ONCE IV 06/26/20 12:15 06/26/20 12:17 DC Cefazolin Sodium (Ancef) 1 gm STK-MED ONCE .ROUTE 06/26/20 12:15 06/26/20 12:18 DC Sodium Chloride (Sodium Chloride Irr Bottle) 1,000 ml STK-MED ONCE IR 06/26/20 12:21 06/26/20 12:23 DC Sodium Chloride 1,000 ml @ ud STK-MED ONCE .ROUTE 06/26/20 13:01 06/26/20 13:03 DC Bupivacaine HCl (Sensorcaine 0.5% Vial) 5 mg STK-MED ONCE .ROUTE 06/26/20 13:01 06/26/20 13:03 DC Acetaminophen 100 ml @ ud STK-MED ONCE IV 06/26/20 13:01 06/26/20 13:03 DC Lidocaine HCl (Lidocaine 2% Vial) 500 mg STK-MED ONCE .ROUTE 06/26/20 13:02 06/26/20 13:04 DC Tranexamic Acid (Tranexamic Acid) 1,000 mg STK-MED ONCE .ROUTE 06/26/20 13:02 06/26/20 13:04 DC Ondansetron HCl (Zofran) 4 mg STK-MED ONCE .ROUTE 06/26/20 13:02 06/26/20 13:04 DC Fentanyl Citrate (Sublimaze) 50 mcg STK-MED ONCE .ROUTE 06/26/20 13:03 06/26/20 13:05 DC Propofol (Diprivan) 200 mg STK-MED ONCE IV 06/26/20 13:03 06/26/20 13:05 DC Sterile Water (Water) 1,000 ml STK-MED ONCE .ROUTE 06/26/20 13:57 06/26/20 13:59 DC Course Sepsis Screening Results: Posi: NEGATIVE Sepsis Qualifier/Stage: NO DEFINITE RISK Duration or Total Time Spent w: 16M Vitals & review Data Vital Sign - Last 24 Hours 06/25/20 06/25/20 06/25/20 06/26/20 16:13 20:15 22:55 00:15 Temp 98.1 98.5 98.3 Pulse 74 72 86 Resp 20 20 B/P (MAP) 132/60 (84) 103/46 (65) Pulse Ox 97 95 O2 Delivery Room Air Room Air Room Air 06/26/20 06/26/20 06/26/20 04:00 07:26 07:30 Temp 98.1 97.7 Pulse 80 74 Resp 18 18 B/P (MAP) 149/47 (81) 143/57 (85) Pulse Ox 97 93 O2 Delivery Room Air Room Air Intake and Output 06/26/20 06:59 Intake Total 850 ml Output Total 1100 ml Balance -250 ml Laboratory Tests Test 06/25/20 10:20 06/25/20 10:29 06/25/20 16:46 06/25/20 21:00 White Blood Count 20.0 10^3/uL Red Blood Count 4.20 10^6/uL Hemoglobin 13.1 g/dL Hematocrit 37.4 % Mean Corpuscular Volume 89.0 fL Mean Corpuscular Hemoglobin 31.2 pg Mean Corpuscular Hemoglobin Concent 35.0 g/dL Red Cell Distribution Width 13.1 % Platelet Count 331 10^3/uL Mean Platelet Volume 9.8 fL Neutrophils (%) (Auto) 88.1 % Lymphocytes (%) (Auto) 4.0 % Monocytes (%) (Auto) 7.6 % Neutrophils # (Auto) 17.6 10^3/uL Lymphocytes # (Auto) 0.79 10^3/uL1 Monocytes # (Auto) 1.5 10^3/uL Absolute Immature Granulocyte (auto 0.04 10^3 u/L Absolute Eosinophils (auto) 0.0 10^3/uL Immature Granulocytes % 0.20 % Eosinophils % 0.0 % Basophils % 0.1 % Basophils # 0.0 10^3/uL Prothrombin Time 10.6 SEC Prothrombin Time INR (Non-Therap) 1.0 Activated Partial Thromboplast Time 26.5 SEC Sodium Level 128 mmol/L Potassium Level 3.9 mmol/L Chloride Level 93.0 mmol/L Carbon Dioxide Level 23.1 mmol/L Anion Gap 15.8 Blood Urea Nitrogen 8 mg/dL Creatinine 0.96 mg/dL Estimated GFR () 68.4 Est GFR (CKD-EPI)(Non-Afr Cameroonian) 56.5 BUN/Creatinine Ratio 8.0 Glucose Level 181 mg/dL Calcium Level 8.9 mg/dL Total Bilirubin 0.3 mg/dL Aspartate Amino Transf (AST/SGOT) 21 U/L Alanine Aminotransferase (ALT/SGPT) 13 U/L Alkaline Phosphatase 111 U/L Total Creatine Kinase 253 U/L Creatine Kinase MB 2.8 ng/mL Troponin I < 0.02 ng/mL Pro-B-Type Natriuretic Peptide 76 pg/mL Total Protein 6.7 g/dL Albumin 3.4 g/dL Globulin 3.3 Albumin/Globulin Ratio 1.030 Differential Total Cells Counted 100 #CELLS Segmented Neutrophils 86 % Band Neutrophils 1 % Lymphocytes 5 % Monocytes 8 % Platelet Estimate ADEQUATE Platelet Morphology NORMAL Blood Morphology Comment NORMAL MORPHOLOGY Bedside Glucose 117 189 Test 06/26/20 04:37 06/26/20 05:30 06/26/20 09:15 Bedside Glucose 142 124 Urine Collection Type VOID Urine Color YELLOW Urine Appearance CLOUDY Urine Bilirubin NEGATIVE MG/DL Urine Ketones NEGATIVE Urine Specific [place] 1.020 Urine pH 5.5 Urine Protein NEGATIVE Urine Urobilinogen 0.2 Urine Nitrate NEGATIVE Urine Leukocyte Esterase SMALL Urine Blood TRACE Urine RBC 0-2 RBC/HPF Urine WBC 10-25 WBC/HPF Urine Squamous Epithelial Cells FEW #/HPF Urine Bacteria MANY Urine Glucose NEGATIVE Current Medications Medications (Trade) Dose Ordered Sig/Reji PRN Reason Start Time Stop Time Status Last Admin Amlodipine Besylate (Norvasc) 5 mg DAILY 06/26/20 09:00 07/26/20 08:59 Aspirin (Aspirin Ec) 81 mg DAILY 06/26/20 09:00 07/26/20 08:59 Benztropine Mesylate (Cogentin) 0.5 mg BID 06/25/20 21:00 07/25/20 20:59 06/25/20 21:02 Fenofibrate (Tricor) 145 mg DAILY 06/26/20 09:00 07/26/20 08:59 Gabapentin (Neurontin) 600 mg HS 06/25/20 21:00 07/25/20 20:59 06/25/20 21:01 Haloperidol (Haldol) 5 mg HS 06/25/20 21:00 07/25/20 20:59 06/25/20 21:00 Insulin Human Regular (Humulin R) ACHS 06/25/20 17:30 07/25/20 17:29 Levothyroxine Sodium (Synthroid) 75 mcg ACB 06/26/20 06:30 07/26/20 06:29 Loratadine (Claritin) 10 mg DAILY 06/26/20 09:00 07/26/20 08:59 Losartan Potassium (Cozaar) 50 mg DAILY 06/26/20 09:00 07/26/20 08:59 Mirtazapine (Remeron) 30 mg HS 06/25/20 21:00 07/25/20 20:59 06/25/20 20:59 Morphine Sulfate (Morphine Sulfate) 3 mg Q6HR PRN PAIN 7 - 10 06/25/20 16:33 07/25/20 12:59 Nicotine (Nicotine 21mg Patch) 1 each DAILY 06/25/20 21:00 07/25/20 20:59 06/25/20 22:28 Ondansetron HCl (Zofran) 4 mg Q4H PRN NAUSEA / VOMITING 06/25/20 13:00 07/25/20 12:59 Pantoprazole Sodium (Protonix) 40 mg DAILY 06/26/20 09:00 07/26/20 08:59 Ropinirole HCl (Requip) 0.5 mg HS 06/25/20 21:00 07/25/20 20:59 06/25/20 21:02 Sodium Chloride 1,000 ml @ 100 mls/hr Q10H 06/26/20 09:00 07/26/20 08:59 Tramadol HCl (Ultram) 50 mg Q4HR PRN PAIN 1 - 3 06/25/20 13:00 07/25/20 12:59 06/25/20 22:29 Tramadol HCl (Ultram) 100 mg Q4HR PRN PAIN 4 - 6 06/25/20 13:00 07/25/20 12:59 LEVEL 1 SEPSIS INFECTION CRITE: None/Not assessed LEVEL 2-SIRS (LIST ALL THAT AP: WBC>[id number] Cardiovascular Evidence: Not Assessed or None Hematologic Evidence: None/Not assessed Hepatic Evidence: None/Not assessed Metabolic Evidence: None/Not assessed Neurological Evidence: None/Not assessed Respiratory Evidence: Need for O2 to keep>90% Renal Evidence: None/Not assessed O2 Sat by Pulse Oximetry: 93 Assessment/Plan Assessment/Plan Assessment/Plan Problems Medical Problems: (1) COPD (chronic obstructive pulmonary disease) (2) Diabetes 1.5, managed as type 2 (3) Fracture, hip (4) Paranoid schizophrenia Plan 1. Left hip fracture. POD day #1.Dr. Nix Patient is prone to fall and is using a walker. She sustained a prior fracture of the femur on the right side that was repaired last year. She will require PT OT evaluation and possible referral for rehab. Roni PERALTA Perioperative risk is 0.4%. Risk of myocardial infarction or cardiac arrest intraoperatively or after 30 days postop. plan Nonweightbearing on the left lower extremity Pain management Incentive spirometry PT OT evaluation Resume home meds. 2. COPD Patient is a long-term smoker. Currently on inhalers. No evidence of acute exacerbation Resume inhalers Nicotine patch 3. Hypothyroidism Resume Synthroid 25 mcg daily 4. Paranoid schizophrenia. Relatively stable. Patient is on multiple medications including Haldol, benztropine, gabapentin, Plan Resume home medications 5. diabetes mellitus type Plan SSI DVT prophylaxis: Per orthopedic surgery CODE STATUS patient is a full code Disposition: TBD. Pending PT evaluation BOBBY BROOKS MD Jun 26, 2020 14:10
[2020-06-26] MEDS: ASPIRIN EC PO SCH (14:22)
[2020-06-26] MEDS: NICOTINE 21MG PATCH TD SCH (14:22)
[2020-06-26] MEDS: PROTONIX PO SCH (14:22)
[2020-06-26] MEDS: CLARITIN PO SCH (14:22)
[2020-06-26] MEDS: NORVASC PO SCH (14:22)
[2020-06-26] MEDS: COZAAR PO SCH (14:22)
[2020-06-26] MEDS: TRICOR PO SCH (14:22)
--- NOTE | 2020-06-26 15:12 | NUR ---
DISCHARGE UPDATE CM ATTEMPTED TO CONTACT FAMILY AND LEFT VM. AWAITING CALL BACK.
[2020-06-26] MEDS: OFIRMEV IV SCH (16:00)
[2020-06-26] MEDS ORDERED: CEPACOL SORE THROAT LOZENGE MM PRN (16:00)
[2020-06-26] MEDS ORDERED: MORPHINE SULFATE IV PRN (16:00)
[2020-06-26] MEDS ORDERED: ULTRAM PO PRN ×2 (16:00)
[2020-06-26] MEDS ORDERED: LACTATED RINGERS 1,000 ML IV SCH (16:00)
[2020-06-26] MEDS ORDERED: EPHEDRINE SULFATE IV PRN (16:30)
[2020-06-26] MEDS: NS 1000ML 1,000 ML IV SCH ×2 (16:33→18:23)
--- NOTE | 2020-06-26 16:44 | OPH ---
DATE OF SURGERY: 06/26/2020 PREOPERATIVE DIAGNOSIS: Closed displaced intertrochanteric fracture of the left hip. POSTOPERATIVE DIAGNOSIS: Closed displaced intertrochanteric fracture of the left hip. OPERATIVE PROCEDURE: Open reduction and internal fixation, left intertrochanteric hip fracture using an 11 x 360 Synthes TFN nail with a 100 helical blade. SURGEON: Arnaldo Nix MD ANESTHESIA: Spinal. ESTIMATED BLOOD LOSS: 500 mL. DRAINS: None. DESCRIPTION OF INDICATIONS: The patient is a 74-year-old female, household ambulator with a walker, fell on the evening of 06/24/2020 and basically laid on her floor for about 12-14 hours before being discovered on 06/25/2020. She was brought to the Emergency Room yesterday where x-rays revealed an intertrochanteric fracture of the left hip. The patient was stabilized medically and taken to the operating room today for open reduction and internal fixation. DESCRIPTION OF PROCEDURE: The patient was given a spinal anesthetic and then placed on the fracture table in the supine position. Both feet and ankles were well padded with cast padding and then placed in the traction stirrups. The right lower extremity was then reduced with traction and manipulation. The patient was noted on the lateral to have a posterior sagging at the fracture site. The patient then had the left lower extremity sterilely prepped and draped. The patient had an incision made about the greater trochanter and extended proximally. The incision was taken through the skin and the subcutaneous tissues. The IT band was opened in line with the skin incision. The guidewire was then placed down the tip of the greater trochanter down the shaft of the femur. The patient had the proximal opening reamer, placed over the guidewire after the position of the guidewire was felt to be satisfactory. The patient then had the proximal reamer placed. The 11 x 360 saundra was then placed down the shaft of the femur. The patient had to have the proximal incision extended in order to reduce the fracture. Once there was felt to be satisfactory fracture reduction, then we placed the distal cannula up against the lateral cortex after a small stab wound had been made. Once the fracture was reduced, a guidewire was then placed into the center portion of the femoral head and neck. The position of the guidewire was felt to be satisfactory. The patient then had the K-wire passed into the center of the femoral head and neck. It measured 103, so we backed down to 100 mm helical blade. The lateral cortical reamer was used and then the size 100 helical blade was passed over the guidewire into the center portion of the femoral head and neck. AP and lateral views showed satisfactory reduction of the fracture and satisfactory hardware position. The patient then had the proximal set screw placed. The outrigger was then removed. The distal interlocking screw was located and a small stab wound was made laterally. The 3.2 drill was then taken from lateral to medial, and it measured 44, so we selected a 5 x 44 distal interlocking screw. The final AP and lateral views showed the distal interlocking screws in appropriate position. Wounds were then all copiously irrigated. Proximally, the IT band was closed with a #1 Vicryl in a [id number] manner. The subcutaneous was closed in layers using Vicryl and Monocryl and then luis fernando for the skin. The more distal wound was irrigated and the subcutaneous was closed with 2-0 Monocryl and the skin was closed with luis fernando. The distal wound was irrigated and closed with luis fernando. The patient had a large Prevena dressing applied about the 2 proximal wounds. The distal wound was closed with 4 x 4s, and Gabo wrap. The patient was then sent to recovery in stable condition. Arnaldo Nix MD DR: DEVANG/tejal JOB# [id number]
--- NOTE | 2020-06-26 17:05 | DIREP ---
PROCEDURE:XRAY HIP MIN [id number] COMPARISON:None. INDICATIONS:ORIF LEFT HIP FINDINGS: BONES:Internal fixation hardware seen transfixing a left proximal femoral fracture in near-anatomic alignment. Several lesser trochanteric ossific fragments are noted. Near-anatomic alignment is otherwise maintained. No hardware abnormality appreciated. JOINTS:Expected postsurgical change. SOFT TISSUES:Expected postsurgical change. OTHER:No additional findings. CONCLUSION:Internally fixated proximal left femoral fracture, without acute complication noted. Dictated by: Dejah Burrell M.D. on 06/26/2020 at 05:01 PM
[2020-06-26] MEDS ORDERED: REQUIP ONE (20:23)
[2020-06-26 20:41] LABS: MEAN CORP HGB 31.3 pg (26-34); RED CELL DISTRIBUTION WIDTH 13.9 % (11.5-14.5)
[2020-06-26] MEDS: REMERON PO SCH (20:53)
[2020-06-26] MEDS: NEURONTIN PO SCH (20:54)
[2020-06-26] MEDS: HALDOL PO SCH (20:55)
[2020-06-26] MEDS: REQUIP PO SCH (21:00)
[2020-06-26] MEDS ORDERED: ANCEF 2 GM/D5W 50ML IV SCH (22:00)
[2020-06-26] MEDS: ANCEF 2 GM/D5W 50ML 50 ML IV SCH (22:00)
[2020-06-26] MEDS ORDERED: NICOTINE 14MG PATCH TD ONE (23:49)
[2020-06-26] MEDS ORDERED: NICOTINE 21MG PATCH TD ONE (23:52)
[2020-06-27] VITALS (10 sets, daily range): BP systolic 96–139; BP diastolic 43–76
[2020-06-27] MEDS: NICOTINE 21MG PATCH TD SCH (00:09)
[2020-06-27] MEDS: NS 1000ML 1,000 ML IV SCH ×2 (04:55→15:09)
--- NOTE | 2020-06-27 05:44 | NUR ---
ICEMAN Iceman placed to left hip area; pt tolerated well. Pt educated on use/purpose of device. Pt verbalized understanding.
[2020-06-27] MEDS: SYNTHROID PO SCH (06:16)
[2020-06-27] MEDS: ANCEF 2 GM/D5W 50ML 50 ML IV SCH ×2 (06:19→15:33)
[2020-06-27] MEDS: HUMULIN R SQ SCH ×4 (06:23→21:00)
[2020-06-27 06:31] LABS: CALCIUM 7.6 mg/dL (8.4-10.5); CARBON DIOXIDE 21.9 mmol/L (20.0-32)
[2020-06-27 06:40] LABS: MEAN CORP HGB 31.8 pg (26-34); RED CELL DISTRIBUTION WIDTH 13.9 % (11.5-14.5)
[2020-06-27] MEDS: OFIRMEV IV SCH ×4 (08:23→23:27)
[2020-06-27] MEDS: XARELTO PO SCH (08:24)
[2020-06-27] MEDS: ASPIRIN EC PO SCH (08:25)
[2020-06-27] MEDS: COGENTIN PO SCH ×2 (08:25→21:18)
[2020-06-27] MEDS: COZAAR PO SCH (08:26)
[2020-06-27] MEDS: CLARITIN PO SCH (08:26)
[2020-06-27] MEDS: COLACE PO SCH (08:28)
[2020-06-27] MEDS: PEPCID PO SCH (08:28)
[2020-06-27] MEDS: NORVASC PO SCH (08:28)
[2020-06-27] MEDS: PROTONIX PO SCH (08:28)
--- NOTE | 2020-06-27 08:52 | PRM.PN ---
Subjective Subjective Date: Jun 27, 2020 Time: 08:45 Subjective patient sitting in bed, pain controlled to left hip left hip dressing intact, LLE TTWB, walker VSS hgb 7.1 expected post surgical blood loss Patient History: Patient reports no known family medical history. VTE VTE Risk Total Score: 2 VTE Risk Score VTE Risk: Score 0-1 = Low Risk (Aggressive mobilization; early ambulation; no VTE prophylaxis required) Score 2: Moderate Risk (Intermittent/Pneumatic Compression Device OR Lovenox/Heparin/Coumadin) Score 3-4: High Risk (Intermittent/Pneumatic Compression Device AND Lovenox/Heparin/Coumadin) Score > or =5: Highest Risk (Intermittent/Pneumatic Compression Device AND Lovenox/Heparin/Coumadin) Antico:Hep/LMWH/Coum/Xarelto: Yes Mechanical device ordered: Yes Review of Systems Constitutional: No: Fever, Chills, Sweats, Weakness, Malaise, Other Eyes: No: Pain, Vision change, Conjunctivae inflammation, Eyelid inflammation, Other, Redness ENT: No: Ear pain, Ear discharge, Nose pain, Nose discharge, Nose congestion, Mouth pain, Mouth swelling, Throat pain, Throat swelling, Other Respiratory: No: Cough, Dry, Shortness of breath, SOB with excertion, Wheezing, Hemoptysis, Pleuritic Pain, Sputum, Wheezing, Other Cardiovascular: No: Chest Pain, Palpitations, Orthopnea, Paroxysmal Noc. Dyspnea, Edema, Lt Headedness, Other Gastrointestinal: No: Nausea, Vomiting, Abdominal Pain, Diarrhea, Constipation, Melena, Hematochezia, Other Genitourinary: No Dysuria, No Frequency, No Incontinence, No Hematuria, No Retention, No Other Musculoskeletal: leg pain (left leg); No: other, neck pain, shoulder pain, arm pain, back pain, hand pain, foot pain Neurological: Weakness (Generalized weakness. Patient use a walker), Confusion Allergies: Coded Allergies: sulfamethoxazole (Verified Allergy, Unknown, 04/14/18) tetanus and diphtheria toxoids (Verified Allergy, Unknown, 04/14/18) trimethoprim (Verified Allergy, Unknown, 04/14/18) Scheduled Amlodipine Besylate (Amlodipine Besylate), 1 TAB PO DAILY, (Reported) Aspirin (Aspir-Low), 1 TAB PO DAILY, (Reported) Benztropine Mesylate (Benztropine Mesylate), 1 TAB PO BID, (Reported) Esomeprazole Magnesium (Nexium), 1 CAP PO DAILY, (Reported) Fenofibrate Nanocrystallized (Fenofibrate), 1 TAB PO DAILY, (Reported) Gabapentin (Gabapentin), 1 TAB PO HS, (Reported) Haloperidol (Haloperidol), 1 TAB PO HS, (Reported) Levocetirizine Dihydrochloride (Levocetirizine Dihydrochloride), 1 TAB PO HS, (Reported) Levothyroxine Sodium (Levothyroxine Sodium), 1 TAB PO DAILY, (Reported) Losartan Potassium (Losartan Potassium), 1 TAB PO DAILY, (Reported) Mirtazapine (Mirtazapine), 1 TAB PO HS, (Reported) Ropinirole Hcl (Requip), 1 TAB PO HS, (Reported) Objective Vitals and I/O Vital Sign - Last 24 Hours 06/26/20 06/26/20 06/26/20 06/26/20 15:55 15:55 16:05 16:15 Temp 99.2 97.3 98.4 Pulse 99 86 94 Resp 17 B/P (MAP) 90/61 (71) 105/54 (71) 89/54 (66) Pulse Ox 100 100 97 O2 Delivery Non-Rebreather Non-Rebreather Room Air O2 Flow Rate 10 10 10 06/26/20 06/26/20 06/26/20 06/26/20 16:25 16:35 16:45 16:55 Temp 98.3 98.3 98.1 98.3 Pulse 90 92 98 96 Resp 18 18 B/P (MAP) 84/68 (73) 117/53 (74) 140/66 (90) 107/62 (77) Pulse Ox 97 97 96 98 O2 Delivery Room Air Room Air Room Air Room Air 06/26/20 06/26/20 06/27/20 06/27/20 19:45 19:59 00:17 00:54 Temp 97.4 99.1 99.0 Pulse 117 97 101 Resp 18 18 B/P (MAP) 145/84 (104) 96/56 (69) 112/43 (66) Pulse Ox 93 97 99 O2 Delivery Room Air Room Air 06/27/20 06/27/20 06/27/20 06/27/20 04:59 07:22 08:26 08:28 Temp 99.4 Pulse 78 78 Resp 20 B/P (MAP) 101/64 (76) 101/64 116/70 Pulse Ox 94 O2 Delivery Room Air Intake and Output 06/27/20 07:00 Intake Total 6525 ml Output Total 875 ml Balance 5650 ml General: Alert, Oriented X3, Cooperative, No acute distress HEENT: Atraumatic, PERRLA, Mucous membr. moist/pink Neck: Supple Lungs: Clear to auscultation Heart: Regular rate, Other Abdomen: Normal bowel sounds, Soft, No tenderness Extremities: No cyanosis, No edema, Other (left hip dressing intact, no s/s of infection or drainage) Neuro: Normal speech, Strength at 5/5 X4 ext Psych/Mental Status: Mental status NL, Mood NL, Other All Results(Lab/Rad) Laboratory Tests Test 06/25/20 16:46 06/25/20 21:00 06/26/20 04:37 06/26/20 05:30 Bedside Glucose 117 189 142 Urine Collection Type VOID Urine Color YELLOW Urine Appearance CLOUDY Urine Bilirubin NEGATIVE MG/DL Urine Ketones NEGATIVE Urine Specific Mosca 1.020 Urine pH 5.5 Urine Protein NEGATIVE Urine Urobilinogen 0.2 Urine Nitrate NEGATIVE Urine Leukocyte Esterase SMALL Urine Blood TRACE Urine RBC 0-2 RBC/HPF Urine WBC 10-25 WBC/HPF Urine Squamous Epithelial Cells FEW #/HPF Urine Bacteria MANY Urine Glucose NEGATIVE Test 06/26/20 09:15 Bedside Glucose 124 Current Medications Medications (Trade) Dose Ordered Sig/Reji Route PRN Reason Start Time Stop Time Status Last Admin Dose Admin Morphine Sulfate (Morphine Sulfate) 4 mg STAT STAT IV 06/25/20 10:07 06/25/20 10:09 DC 06/25/20 10:35 Sodium Chloride 1,000 ml @ 0 mls/hr Q0M ONCE IV 06/25/20 10:30 06/25/20 10:31 DC 06/25/20 10:35 Ondansetron HCl (Zofran) 4 mg STAT STAT IV 06/25/20 10:07 06/25/20 10:09 DC 06/25/20 10:39 Sodium Chloride 1,000 ml @ ud STK-MED ONCE .ROUTE 06/25/20 10:24 06/25/20 10:26 DC Ondansetron HCl (Zofran) 4 mg STK-MED ONCE .ROUTE 06/25/20 10:25 06/25/20 10:26 DC Morphine Sulfate (Morphine Sulfate) 4 mg STK-MED ONCE .ROUTE 06/25/20 10:25 06/25/20 10:27 DC Tramadol HCl (Ultram) 50 mg Q4HR PRN PO PAIN 1 - 3 06/25/20 13:00 07/25/20 12:59 06/25/20 22:29 Tramadol HCl (Ultram) 100 mg Q4HR PRN PO PAIN 4 - 6 06/25/20 13:00 07/25/20 12:59 Morphine Sulfate (Morphine Sulfate) 3 mg Q6HR PRN IV PAIN 7 - 10 06/25/20 13:00 06/25/20 16:33 DC Ondansetron HCl (Zofran) 4 mg Q4H PRN IV NAUSEA / VOMITING 06/25/20 13:00 07/25/20 12:59 Enoxaparin Sodium (Lovenox) 40 mg STAT STAT SQ 06/25/20 12:44 06/25/20 14:06 DC 06/25/20 14:43 Insulin Human Regular (Humulin R) ACHS SQ 06/25/20 17:30 07/25/20 17:29 Enoxaparin Sodium (Lovenox) 40 mg STK-MED ONCE SQ 06/25/20 14:10 06/25/20 14:12 DC Amlodipine Besylate (Norvasc) 5 mg DAILY PO 06/26/20 09:00 07/26/20 08:59 Aspirin (Aspirin Ec) 81 mg DAILY PO 06/26/20 09:00 07/26/20 08:59 Pantoprazole Sodium (Protonix) 40 mg DAILY PO 06/26/20 09:00 07/26/20 08:59 Fenofibrate (Tricor) 145 mg DAILY PO 06/26/20 09:00 07/26/20 08:59 Haloperidol (Haldol) 5 mg HS PO 06/25/20 21:00 07/25/20 20:59 06/25/20 21:00 Levothyroxine Sodium (Synthroid) 75 mcg ACB PO 06/26/20 06:30 07/26/20 06:29 Losartan Potassium (Cozaar) 50 mg DAILY PO 06/26/20 09:00 07/26/20 08:59 Benztropine Mesylate (Cogentin) 0.5 mg BID PO 06/25/20 21:00 07/25/20 20:59 06/25/20 21:02 Gabapentin (Neurontin) 600 mg HS PO 06/25/20 21:00 07/25/20 20:59 06/25/20 21:01 Loratadine (Claritin) 10 mg DAILY PO 06/26/20 09:00 07/26/20 08:59 Mirtazapine (Remeron) 30 mg HS PO 06/25/20 21:00 07/25/20 20:59 06/25/20 20:59 Ropinirole HCl (Requip) 0.5 mg HS PO 06/25/20 21:00 07/25/20 20:59 06/25/20 21:02 Morphine Sulfate (Morphine Sulfate) 3 mg Q6HR PRN IV PAIN 7 - 10 06/25/20 16:33 07/25/20 12:59 Ropinirole HCl (Requip) 1 mg STK-MED ONCE .ROUTE 06/25/20 20:19 06/25/20 20:21 DC Benztropine Mesylate (Cogentin) 1 mg STK-MED ONCE .ROUTE 06/25/20 20:21 06/25/20 20:22 DC Haloperidol (Haldol) 5 mg STK-MED ONCE .ROUTE 06/25/20 20:21 06/25/20 20:23 DC Nicotine (Nicotine 21mg Patch) 1 each DAILY TD 06/25/20 21:00 07/25/20 20:59 06/25/20 22:28 Nicotine (Nicotine 21mg Patch) 1 each STK-MED ONCE TD 06/25/20 21:45 06/25/20 21:48 DC Sodium Chloride 1,000 ml @ ud STK-MED ONCE .ROUTE 06/26/20 08:42 06/26/20 08:44 DC Sodium Chloride 1,000 ml @ 100 mls/hr Q10H IV 06/26/20 09:00 07/26/20 08:59 Hydromorphone HCl (Dilaudid) 0.5 mg OT ONCE IV 06/26/20 11:00 06/26/20 12:25 DC 06/26/20 11:18 Sodium Chloride 100 ml @ ud STK-MED ONCE IV 06/26/20 12:15 06/26/20 12:17 DC Cefazolin Sodium (Ancef) 1 gm STK-MED ONCE .ROUTE 06/26/20 12:15 06/26/20 12:18 DC Sodium Chloride (Sodium Chloride Irr Bottle) 1,000 ml STK-MED ONCE IR 06/26/20 12:21 06/26/20 12:23 DC Sodium Chloride 1,000 ml @ ud STK-MED ONCE .ROUTE 06/26/20 13:01 06/26/20 13:03 DC Bupivacaine HCl (Sensorcaine 0.5% Vial) 5 mg STK-MED ONCE .ROUTE 06/26/20 13:01 06/26/20 13:03 DC Acetaminophen 100 ml @ ud STK-MED ONCE IV 06/26/20 13:01 06/26/20 13:03 DC Lidocaine HCl (Lidocaine 2% Vial) 500 mg STK-MED ONCE .ROUTE 06/26/20 13:02 06/26/20 13:04 DC Tranexamic Acid (Tranexamic Acid) 1,000 mg STK-MED ONCE .ROUTE 06/26/20 13:02 06/26/20 13:04 DC Ondansetron HCl (Zofran) 4 mg STK-MED ONCE .ROUTE 06/26/20 13:02 06/26/20 13:04 DC Fentanyl Citrate (Sublimaze) 50 mcg STK-MED ONCE .ROUTE 06/26/20 13:03 06/26/20 13:05 DC Propofol (Diprivan) 200 mg STK-MED ONCE IV 06/26/20 13:03 06/26/20 13:05 DC Sterile Water (Water) 1,000 ml STK-MED ONCE .ROUTE 06/26/20 13:57 06/26/20 13:59 DC Course Sepsis Screening Results: Posi: NEGATIVE Sepsis Qualifier/Stage: NO DEFINITE RISK Duration or Total Time Spent w: 16M Vitals & review Data Vital Sign - Last 24 Hours 06/25/20 06/25/20 06/25/20 06/26/20 16:13 20:15 22:55 00:15 Temp 98.1 98.5 98.3 Pulse 74 72 86 Resp 20 20 B/P (MAP) 132/60 (84) 103/46 (65) Pulse Ox 97 95 O2 Delivery Room Air Room Air Room Air 06/26/20 06/26/20 06/26/20 04:00 07:26 07:30 Temp 98.1 97.7 Pulse 80 74 Resp 18 18 B/P (MAP) 149/47 (81) 143/57 (85) Pulse Ox 97 93 O2 Delivery Room Air Room Air Intake and Output 06/26/20 06:59 Intake Total 850 ml Output Total 1100 ml Balance -250 ml Laboratory Tests Test 06/25/20 10:20 06/25/20 10:29 06/25/20 16:46 06/25/20 21:00 White Blood Count 20.0 10^3/uL Red Blood Count 4.20 10^6/uL Hemoglobin 13.1 g/dL Hematocrit 37.4 % Mean Corpuscular Volume 89.0 fL Mean Corpuscular Hemoglobin 31.2 pg Mean Corpuscular Hemoglobin Concent 35.0 g/dL Red Cell Distribution Width 13.1 % Platelet Count 331 10^3/uL Mean Platelet Volume 9.8 fL Neutrophils (%) (Auto) 88.1 % Lymphocytes (%) (Auto) 4.0 % Monocytes (%) (Auto) 7.6 % Neutrophils # (Auto) 17.6 10^3/uL Lymphocytes # (Auto) 0.79 10^3/uL1 Monocytes # (Auto) 1.5 10^3/uL Absolute Immature Granulocyte (auto 0.04 10^3 u/L Absolute Eosinophils (auto) 0.0 10^3/uL Immature Granulocytes % 0.20 % Eosinophils % 0.0 % Basophils % 0.1 % Basophils # 0.0 10^3/uL Prothrombin Time 10.6 SEC Prothrombin Time INR (Non-Therap) 1.0 Activated Partial Thromboplast Time 26.5 SEC Sodium Level 128 mmol/L Potassium Level 3.9 mmol/L Chloride Level 93.0 mmol/L Carbon Dioxide Level 23.1 mmol/L Anion Gap 15.8 Blood Urea Nitrogen 8 mg/dL Creatinine 0.96 mg/dL Estimated GFR () 68.4 Est GFR (CKD-EPI)(Non-Afr Nauruan) 56.5 BUN/Creatinine Ratio 8.0 Glucose Level 181 mg/dL Calcium Level 8.9 mg/dL Total Bilirubin 0.3 mg/dL Aspartate Amino Transf (AST/SGOT) 21 U/L Alanine Aminotransferase (ALT/SGPT) 13 U/L Alkaline Phosphatase 111 U/L Total Creatine Kinase 253 U/L Creatine Kinase MB 2.8 ng/mL Troponin I < 0.02 ng/mL Pro-B-Type Natriuretic Peptide 76 pg/mL Total Protein 6.7 g/dL Albumin 3.4 g/dL Globulin 3.3 Albumin/Globulin Ratio 1.030 Differential Total Cells Counted 100 #CELLS Segmented Neutrophils 86 % Band Neutrophils 1 % Lymphocytes 5 % Monocytes 8 % Platelet Estimate ADEQUATE Platelet Morphology NORMAL Blood Morphology Comment NORMAL MORPHOLOGY Bedside Glucose 117 189 Test 06/26/20 04:37 06/26/20 05:30 06/26/20 09:15 Bedside Glucose 142 124 Urine Collection Type VOID Urine Color YELLOW Urine Appearance CLOUDY Urine Bilirubin NEGATIVE MG/DL Urine Ketones NEGATIVE Urine Specific Mosca 1.020 Urine pH 5.5 Urine Protein NEGATIVE Urine Urobilinogen 0.2 Urine Nitrate NEGATIVE Urine Leukocyte Esterase SMALL Urine Blood TRACE Urine RBC 0-2 RBC/HPF Urine WBC 10-25 WBC/HPF Urine Squamous Epithelial Cells FEW #/HPF Urine Bacteria MANY Urine Glucose NEGATIVE Current Medications Medications (Trade) Dose Ordered Sig/Reji PRN Reason Start Time Stop Time Status Last Admin Amlodipine Besylate (Norvasc) 5 mg DAILY 06/26/20 09:00 07/26/20 08:59 Aspirin (Aspirin Ec) 81 mg DAILY 06/26/20 09:00 07/26/20 08:59 Benztropine Mesylate (Cogentin) 0.5 mg BID 06/25/20 21:00 07/25/20 20:59 06/25/20 21:02 Fenofibrate (Tricor) 145 mg DAILY 06/26/20 09:00 07/26/20 08:59 Gabapentin (Neurontin) 600 mg HS 06/25/20 21:00 07/25/20 20:59 06/25/20 21:01 Haloperidol (Haldol) 5 mg HS 06/25/20 21:00 07/25/20 20:59 06/25/20 21:00 Insulin Human Regular (Humulin R) ACHS 06/25/20 17:30 07/25/20 17:29 Levothyroxine Sodium (Synthroid) 75 mcg ACB 06/26/20 06:30 07/26/20 06:29 Loratadine (Claritin) 10 mg DAILY 06/26/20 09:00 07/26/20 08:59 Losartan Potassium (Cozaar) 50 mg DAILY 06/26/20 09:00 07/26/20 08:59 Mirtazapine (Remeron) 30 mg HS 06/25/20 21:00 07/25/20 20:59 06/25/20 20:59 Morphine Sulfate (Morphine Sulfate) 3 mg Q6HR PRN PAIN 7 - 10 06/25/20 16:33 07/25/20 12:59 Nicotine (Nicotine 21mg Patch) 1 each DAILY 06/25/20 21:00 07/25/20 20:59 06/25/20 22:28 Ondansetron HCl (Zofran) 4 mg Q4H PRN NAUSEA / VOMITING 06/25/20 13:00 07/25/20 12:59 Pantoprazole Sodium (Protonix) 40 mg DAILY 06/26/20 09:00 07/26/20 08:59 Ropinirole HCl (Requip) 0.5 mg HS 06/25/20 21:00 07/25/20 20:59 06/25/20 21:02 Sodium Chloride 1,000 ml @ 100 mls/hr Q10H 06/26/20 09:00 07/26/20 08:59 Tramadol HCl (Ultram) 50 mg Q4HR PRN PAIN 1 - 3 06/25/20 13:00 07/25/20 12:59 06/25/20 22:29 Tramadol HCl (Ultram) 100 mg Q4HR PRN PAIN 4 - 6 06/25/20 13:00 07/25/20 12:59 LEVEL 1 SEPSIS INFECTION CRITE: ABX Therapy LEVEL 2-SIRS (LIST ALL THAT AP: WBC>[id number] Cardiovascular Evidence: Not Assessed or None Hematologic Evidence: None/Not assessed Hepatic Evidence: None/Not assessed Metabolic Evidence: None/Not assessed Neurological Evidence: None/Not assessed Respiratory Evidence: Need for O2 to keep>90% Renal Evidence: None/Not assessed O2 Sat by Pulse Oximetry: 94 Oxygen Flow Rate: 10 Assessment/Plan Assessment/Plan Assessment/Plan Problems: (1) Fracture, hip Status: Acute ICD Code: S72.009A - Fracture of unspecified part of neck of unspecified femur, initial encounter for closed fracture SNOMED: [id number] Plan Left hip fracture. POD day #1 from left hip ORIF by Dr. Nix monitor dressing monitor pain Anemia- ordered 1 unit PRBCs. Hgb 7.1. Expected blood loss following surgery DVT prophylaxis- Xarelto 10mg PO daily while at the hospital PT/OT eval and treat- walker, TTWB LLE, safety precautions Problem Qualifiers (1) Fracture, hip: Laterality: left JAYDA ZAMORA NP Jun 27, 2020 08:52
[2020-06-27] MEDS ORDERED: NS 250ML 250 ML IV ONE (10:09)
--- NOTE | 2020-06-27 11:23 | NUR ---
DISCHARGE PLAN CM AT BEDSIDE TO VISIT WITH PATIENT REGARDING D/C PLAN. PATIENT LIVES AT HOME ALONE. SHE IS GOING TO RELOCATE FOR A COUPLE OF MONTHS TO HER DAUGHTERS HOUSE ON DISCHARGE. SHE HAS A W/C, SC, CANE AND WALKER ALL IN PLACE. SHE DOES NOT USE HOME O2. SHE IS CURRENTLY ON SERVICE WITH [facility]. CM DISCUSSED SNF WITH PATIENT AND PATIENT REFUSED. SHE SAID "I AM GOING HOME WITH MY DAUGHTER AND SHE IS GOING TO TAKE CARE OF ME." DISCHARGE PLAN IS FOR PATIENT TO D/C HOME WITH HER DAUGHTER AND [facility] TO FOLLOW. CM WILL CONTINUE TO MONITOR NEEDS OF PT.
--- NOTE | 2020-06-27 13:47 | NUR ---
PT RECEIVED 1 UNIT OF BLOOD WITHOUT ANY REACTION
[2020-06-27] MEDS: ULTRAM PO PRN (14:19)
[2020-06-27] MEDS: TRICOR PO SCH (15:33)
--- NOTE | 2020-06-27 16:17 | PRM.PN ---
Subjective Subjective Date: Jun 27, 2020 Time: 13:36 Subjective POD #2. Patient had no major changes appear stable pain is controlled. She will start on PT OT. Her hemoglobin is low about 7 and consent for transfusion was obtained. Afebrile and tolerating diet. Patient History: Patient reports no known family medical history. VTE VTE Risk Total Score: 2 VTE Risk Score VTE Risk: Score 0-1 = Low Risk (Aggressive mobilization; early ambulation; no VTE prophylaxis required) Score 2: Moderate Risk (Intermittent/Pneumatic Compression Device OR Lovenox/Heparin/Coumadin) Score 3-4: High Risk (Intermittent/Pneumatic Compression Device AND Lovenox/Heparin/Coumadin) Score > or =5: Highest Risk (Intermittent/Pneumatic Compression Device AND Lovenox/Heparin/Coumadin) Antico:Hep/LMWH/Coum/Xarelto: Yes Mechanical device ordered: Yes Review of Systems Constitutional: No: Fever, Chills, Sweats, Weakness, Malaise, Other Eyes: No: Pain, Vision change, Conjunctivae inflammation, Eyelid inflammation, Other, Redness ENT: No: Ear pain, Ear discharge, Nose pain, Nose discharge, Nose congestion, Mouth pain, Mouth swelling, Throat pain, Throat swelling, Other Respiratory: No: Cough, Dry, Shortness of breath, SOB with excertion, Wheezing, Hemoptysis, Pleuritic Pain, Sputum, Wheezing, Other Cardiovascular: No: Chest Pain, Palpitations, Orthopnea, Paroxysmal Noc. Dyspnea, Edema, Lt Headedness, Other Gastrointestinal: No: Nausea, Vomiting, Abdominal Pain, Diarrhea, Constipation, Melena, Hematochezia, Other Genitourinary: No Dysuria, No Frequency, No Incontinence, No Hematuria, No Retention, No Other Musculoskeletal: leg pain (left leg); No: other, neck pain, shoulder pain, arm pain, back pain, hand pain, foot pain Neurological: Weakness (Generalized weakness. Patient use a walker), Confusion Allergies: Coded Allergies: sulfamethoxazole (Verified Allergy, Unknown, 04/14/18) tetanus and diphtheria toxoids (Verified Allergy, Unknown, 04/14/18) trimethoprim (Verified Allergy, Unknown, 04/14/18) Scheduled Amlodipine Besylate (Amlodipine Besylate), 1 TAB PO DAILY, (Reported) Aspirin (Aspir-Low), 1 TAB PO DAILY, (Reported) Benztropine Mesylate (Benztropine Mesylate), 1 TAB PO BID, (Reported) Esomeprazole Magnesium (Nexium), 1 CAP PO DAILY, (Reported) Fenofibrate Nanocrystallized (Fenofibrate), 1 TAB PO DAILY, (Reported) Gabapentin (Gabapentin), 1 TAB PO HS, (Reported) Haloperidol (Haloperidol), 1 TAB PO HS, (Reported) Levocetirizine Dihydrochloride (Levocetirizine Dihydrochloride), 1 TAB PO HS, (Reported) Levothyroxine Sodium (Levothyroxine Sodium), 1 TAB PO DAILY, (Reported) Losartan Potassium (Losartan Potassium), 1 TAB PO DAILY, (Reported) Mirtazapine (Mirtazapine), 1 TAB PO HS, (Reported) Ropinirole Hcl (Requip), 1 TAB PO HS, (Reported) Objective Vitals and I/O Vital Sign - Last 24 Hours 06/26/20 06/26/20 06/26/20 06/26/20 15:55 15:55 16:05 16:15 Temp 99.2 97.3 98.4 Pulse 99 86 94 Resp 17 B/P (MAP) 90/61 (71) 105/54 (71) 89/54 (66) Pulse Ox 100 100 97 O2 Delivery Non-Rebreather Non-Rebreather Room Air O2 Flow Rate 10 10 10 06/26/20 06/26/20 06/26/20 06/26/20 16:25 16:35 16:45 16:55 Temp 98.3 98.3 98.1 98.3 Pulse 90 92 98 96 Resp 18 18 18 18 B/P (MAP) 84/68 (73) 117/53 (74) 140/66 (90) 107/62 (77) Pulse Ox 97 97 96 98 O2 Delivery Room Air Room Air Room Air Room Air 06/26/20 06/26/20 06/27/20 06/27/20 19:45 19:59 00:17 00:54 Temp 97.4 99.1 99.0 Pulse 117 97 101 Resp 18 16 18 B/P (MAP) 145/84 (104) 96/56 (69) 112/43 (66) Pulse Ox 93 97 99 O2 Delivery Room Air Room Air 06/27/20 06/27/20 06/27/2006/27/20 04:59 07:22 07:30 08:26 Temp 99.4 98.2 Pulse 78 92 Resp 20 18 B/P (MAP) 101/64 (76) 116/47 (70) 101/64 Pulse Ox 94 96 O2 Delivery Room Air Room Air 06/27/20 06/27/20 06/27/20 06/27/20 08:28 10:23 10:50 11:15 Temp 97.9 98.2 98.3 Pulse 78 101 105 98 Resp 18 B/P (MAP) 116/70 118/50 113/56 109/67 (81) Pulse Ox 97 06/27/20 12:30 Temp 98.1 Pulse 91 Resp 18 B/P (MAP) 116/57 Intake and Output 06/27/20 07:00 Intake Total 6525 ml Output Total 875 ml Balance 5650 ml General: Alert, Oriented X3, Cooperative, No acute distress HEENT: Atraumatic, PERRLA, Mucous membr. moist/pink Neck: Supple Lungs: Clear to auscultation Heart: Regular rate, Other Abdomen: Normal bowel sounds, Soft, No tenderness Extremities: No cyanosis, No edema, Other (Left hip swelling. Dressing is CDI. No evidence of cellulitis or redness.) Neuro: Normal speech, Strength at 5/5 X4 ext Psych/Mental Status: Mental status NL, Mood NL, Other All Results(Lab/Rad) Laboratory Tests Test 06/25/20 16:46 06/25/20 21:00 06/26/20 04:37 06/26/20 05:30 Bedside Glucose 117 189 142 Urine Collection Type VOID Urine Color YELLOW Urine Appearance CLOUDY Urine Bilirubin NEGATIVE MG/DL Urine Ketones NEGATIVE Urine Specific [place] 1.020 Urine pH 5.5 Urine Protein NEGATIVE Urine Urobilinogen 0.2 Urine Nitrate NEGATIVE Urine Leukocyte Esterase SMALL Urine Blood TRACE Urine RBC 0-2 RBC/HPF Urine WBC 10-25 WBC/HPF Urine Squamous Epithelial Cells FEW #/HPF Urine Bacteria MANY Urine Glucose NEGATIVE Test 06/26/20 09:15 Bedside Glucose 124 Current Medications Medications (Trade) Dose Ordered Sig/Reji Route PRN Reason Start Time Stop Time Status Last Admin Dose Admin Morphine Sulfate (Morphine Sulfate) 4 mg STAT STAT IV 06/25/20 10:07 06/25/20 10:09 DC 06/25/20 10:35 Sodium Chloride 1,000 ml @ 0 mls/hr Q0M ONCE IV 06/25/20 10:30 06/25/20 10:31 DC 06/25/20 10:35 Ondansetron HCl (Zofran) 4 mg STAT STAT IV 06/25/20 10:07 06/25/20 10:09 DC 06/25/20 10:39 Sodium Chloride 1,000 ml @ ud STK-MED ONCE .ROUTE 06/25/20 10:24 06/25/20 10:26 DC Ondansetron HCl (Zofran) 4 mg STK-MED ONCE .ROUTE 06/25/20 10:25 06/25/20 10:26 DC Morphine Sulfate (Morphine Sulfate) 4 mg STK-MED ONCE .ROUTE 06/25/20 10:25 06/25/20 10:27 DC Tramadol HCl (Ultram) 50 mg Q4HR PRN PO PAIN 1 - 3 06/25/20 13:00 07/25/20 12:59 06/25/20 22:29 Tramadol HCl (Ultram) 100 mg Q4HR PRN PO PAIN 4 - 6 06/25/20 13:00 07/25/20 12:59 Morphine Sulfate (Morphine Sulfate) 3 mg Q6HR PRN IV PAIN 7 - 10 06/25/20 13:00 06/25/20 16:33 DC Ondansetron HCl (Zofran) 4 mg Q4H PRN IV NAUSEA / VOMITING 06/25/20 13:00 07/25/20 12:59 Enoxaparin Sodium (Lovenox) 40 mg STAT STAT SQ 06/25/20 12:44 06/25/20 14:06 DC 06/25/20 14:43 Insulin Human Regular (Humulin R) ACHS SQ 06/25/20 17:30 07/25/20 17:29 Enoxaparin Sodium (Lovenox) 40 mg STK-MED ONCE SQ 06/25/20 14:10 06/25/20 14:12 DC Amlodipine Besylate (Norvasc) 5 mg DAILY PO 06/26/20 09:00 07/26/20 08:59 Aspirin (Aspirin Ec) 81 mg DAILY PO 06/26/20 09:00 07/26/20 08:59 Pantoprazole Sodium (Protonix) 40 mg DAILY PO 06/26/20 09:00 07/26/20 08:59 Fenofibrate (Tricor) 145 mg DAILY PO 06/26/20 09:00 07/26/20 08:59 Haloperidol (Haldol) 5 mg HS PO 06/25/20 21:00 07/25/20 20:59 06/25/20 21:00 Levothyroxine Sodium (Synthroid) 75 mcg ACB PO 06/26/20 06:30 07/26/20 06:29 Losartan Potassium (Cozaar) 50 mg DAILY PO 06/26/20 09:00 07/26/20 08:59 Benztropine Mesylate (Cogentin) 0.5 mg BID PO 06/25/20 21:00 07/25/20 20:59 06/25/20 21:02 Gabapentin (Neurontin) 600 mg HS PO 06/25/20 21:00 07/25/20 20:59 06/25/20 21:01 Loratadine (Claritin) 10 mg DAILY PO 06/26/20 09:00 07/26/20 08:59 Mirtazapine (Remeron) 30 mg HS PO 06/25/20 21:00 07/25/20 20:59 06/25/20 20:59 Ropinirole HCl (Requip) 0.5 mg HS PO 06/25/20 21:00 07/25/20 20:59 06/25/20 21:02 Morphine Sulfate (Morphine Sulfate) 3 mg Q6HR PRN IV PAIN 7 - 10 06/25/20 16:33 07/25/20 12:59 Ropinirole HCl (Requip) 1 mg STK-MED ONCE .ROUTE 06/25/20 20:19 06/25/20 20:21 DC Benztropine Mesylate (Cogentin) 1 mg STK-MED ONCE .ROUTE 06/25/20 20:21 06/25/20 20:22 DC Haloperidol (Haldol) 5 mg STK-MED ONCE .ROUTE 06/25/20 20:21 06/25/20 20:23 DC Nicotine (Nicotine 21mg Patch) 1 each DAILY TD 06/25/20 21:00 07/25/20 20:59 06/25/20 22:28 Nicotine (Nicotine 21mg Patch) 1 each STK-MED ONCE TD 06/25/20 21:45 06/25/20 21:48 DC Sodium Chloride 1,000 ml @ ud STK-MED ONCE .ROUTE 06/26/20 08:42 06/26/20 08:44 DC Sodium Chloride 1,000 ml @ 100 mls/hr Q10H IV 06/26/20 09:00 07/26/20 08:59 Hydromorphone HCl (Dilaudid) 0.5 mg OT ONCE IV 06/26/20 11:00 06/26/20 12:25 DC 06/26/20 11:18 Sodium Chloride 100 ml @ ud STK-MED ONCE IV 06/26/20 12:15 06/26/20 12:17 DC Cefazolin Sodium (Ancef) 1 gm STK-MED ONCE .ROUTE 06/26/20 12:15 06/26/20 12:18 DC Sodium Chloride (Sodium Chloride Irr Bottle) 1,000 ml STK-MED ONCE IR 06/26/20 12:21 06/26/20 12:23 DC Sodium Chloride 1,000 ml @ ud STK-MED ONCE .ROUTE 06/26/20 13:01 06/26/20 13:03 DC Bupivacaine HCl (Sensorcaine 0.5% Vial) 5 mg STK-MED ONCE .ROUTE 06/26/20 13:01 06/26/20 13:03 DC Acetaminophen 100 ml @ ud STK-MED ONCE IV 06/26/20 13:01 06/26/20 13:03 DC Lidocaine HCl (Lidocaine 2% Vial) 500 mg STK-MED ONCE .ROUTE 06/26/20 13:02 06/26/20 13:04 DC Tranexamic Acid (Tranexamic Acid) 1,000 mg STK-MED ONCE .ROUTE 06/26/20 13:02 06/26/20 13:04 DC Ondansetron HCl (Zofran) 4 mg STK-MED ONCE .ROUTE 06/26/20 13:02 06/26/20 13:04 DC Fentanyl Citrate (Sublimaze) 50 mcg STK-MED ONCE .ROUTE 06/26/20 13:03 06/26/20 13:05 DC Propofol (Diprivan) 200 mg STK-MED ONCE IV 06/26/20 13:03 06/26/20 13:05 DC Sterile Water (Water) 1,000 ml STK-MED ONCE .ROUTE 06/26/20 13:57 06/26/20 13:59 DC Course Sepsis Screening Results: Posi: NEGATIVE Sepsis Qualifier/Stage: NO DEFINITE RISK Duration or Total Time Spent w: 16M Vitals & review Data Vital Sign - Last 24 Hours 06/25/20 06/25/20 06/25/20 06/26/20 16:13 20:15 22:55 00:15 Temp 98.1 98.5 98.3 Pulse 74 72 86 Resp 20 20 B/P (MAP) 132/60 (84) 103/46 (65) Pulse Ox 97 95 O2 Delivery Room Air Room Air Room Air 06/26/20 06/26/20 06/26/20 04:00 07:26 07:30 Temp 98.1 97.7 Pulse 80 74 Resp 18 18 B/P (MAP) 149/47 (81) 143/57 (85) Pulse Ox 97 93 O2 Delivery Room Air Room Air Intake and Output 06/26/20 06:59 Intake Total 850 ml Output Total 1100 ml Balance -250 ml Laboratory Tests Test 06/25/20 10:20 06/25/20 10:29 06/25/20 16:46 06/25/20 21:00 White Blood Count 20.0 10^3/uL Red Blood Count 4.20 10^6/uL Hemoglobin 13.1 g/dL Hematocrit 37.4 % Mean Corpuscular Volume 89.0 fL Mean Corpuscular Hemoglobin 31.2 pg Mean Corpuscular Hemoglobin Concent 35.0 g/dL Red Cell Distribution Width 13.1 % Platelet Count 331 10^3/uL Mean Platelet Volume 9.8 fL Neutrophils (%) (Auto) 88.1 % Lymphocytes (%) (Auto) 4.0 % Monocytes (%) (Auto) 7.6 % Neutrophils # (Auto) 17.6 10^3/uL Lymphocytes # (Auto) 0.79 10^3/uL1 Monocytes # (Auto) 1.5 10^3/uL Absolute Immature Granulocyte (auto 0.04 10^3 u/L Absolute Eosinophils (auto) 0.0 10^3/uL Immature Granulocytes % 0.20 % Eosinophils % 0.0 % Basophils % 0.1 % Basophils # 0.0 10^3/uL Prothrombin Time 10.6 SEC Prothrombin Time INR (Non-Therap) 1.0 Activated Partial Thromboplast Time 26.5 SEC Sodium Level 128 mmol/L Potassium Level 3.9 mmol/L Chloride Level 93.0 mmol/L Carbon Dioxide Level 23.1 mmol/L Anion Gap 15.8 Blood Urea Nitrogen 8 mg/dL Creatinine 0.96 mg/dL Estimated GFR () 68.4 Est GFR (CKD-EPI)(Non-Afr [place]) 56.5 BUN/Creatinine Ratio 8.0 Glucose Level 181 mg/dL Calcium Level 8.9 mg/dL Total Bilirubin 0.3 mg/dL Aspartate Amino Transf (AST/SGOT) 21 U/L Alanine Aminotransferase (ALT/SGPT) 13 U/L Alkaline Phosphatase 111 U/L Total Creatine Kinase 253 U/L Creatine Kinase MB 2.8 ng/mL Troponin I < 0.02 ng/mL Pro-B-Type Natriuretic Peptide 76 pg/mL Total Protein 6.7 g/dL Albumin 3.4 g/dL Globulin 3.3 Albumin/Globulin Ratio 1.030 Differential Total Cells Counted 100 #CELLS Segmented Neutrophils 86 % Band Neutrophils 1 % Lymphocytes 5 % Monocytes 8 % Platelet Estimate ADEQUATE Platelet Morphology NORMAL Blood Morphology Comment NORMAL MORPHOLOGY Bedside Glucose 117 189 Test 06/26/20 04:37 06/26/20 05:30 06/26/20 09:15 Bedside Glucose 142 124 Urine Collection Type VOID Urine Color YELLOW Urine Appearance CLOUDY Urine Bilirubin NEGATIVE MG/DL Urine Ketones NEGATIVE Urine Specific [place] 1.020 Urine pH 5.5 Urine Protein NEGATIVE Urine Urobilinogen 0.2 Urine Nitrate NEGATIVE Urine Leukocyte Esterase SMALL Urine Blood TRACE Urine RBC 0-2 RBC/HPF Urine WBC 10-25 WBC/HPF Urine Squamous Epithelial Cells FEW #/HPF Urine Bacteria MANY Urine Glucose NEGATIVE Current Medications Medications (Trade) Dose Ordered Sig/Reji PRN Reason Start Time Stop Time Status Last Admin Amlodipine Besylate (Norvasc) 5 mg DAILY 06/26/20 09:00 07/26/20 08:59 Aspirin (Aspirin Ec) 81 mg DAILY 06/26/20 09:00 07/26/20 08:59 Benztropine Mesylate (Cogentin) 0.5 mg BID 06/25/20 21:00 07/25/20 20:59 06/25/20 21:02 Fenofibrate (Tricor) 145 mg DAILY 06/26/20 09:00 07/26/20 08:59 Gabapentin (Neurontin) 600 mg HS 06/25/20 21:00 07/25/20 20:59 06/25/20 21:01 Haloperidol (Haldol) 5 mg HS 06/25/20 21:00 07/25/20 20:59 06/25/20 21:00 Insulin Human Regular (Humulin R) ACHS 06/25/20 17:30 07/25/20 17:29 Levothyroxine Sodium (Synthroid) 75 mcg ACB 06/26/20 06:30 07/26/20 06:29 Loratadine (Claritin) 10 mg DAILY 06/26/20 09:00 07/26/20 08:59 Losartan Potassium (Cozaar) 50 mg DAILY 06/26/20 09:00 07/26/20 08:59 Mirtazapine (Remeron) 30 mg HS 06/25/20 21:00 07/25/20 20:59 06/25/20 20:59 Morphine Sulfate (Morphine Sulfate) 3 mg Q6HR PRN PAIN 7 - 10 06/25/20 16:33 07/25/20 12:59 Nicotine (Nicotine 21mg Patch) 1 each DAILY 06/25/20 21:00 07/25/20 20:59 06/25/20 22:28 Ondansetron HCl (Zofran) 4 mg Q4H PRN NAUSEA / VOMITING 06/25/20 13:00 07/25/20 12:59 Pantoprazole Sodium (Protonix) 40 mg DAILY 06/26/20 09:00 07/26/20 08:59 Ropinirole HCl (Requip) 0.5 mg HS 06/25/20 21:00 07/25/20 20:59 06/25/20 21:02 Sodium Chloride 1,000 ml @ 100 mls/hr Q10H 06/26/20 09:00 07/26/20 08:59 Tramadol HCl (Ultram) 50 mg Q4HR PRN PAIN 1 - 3 06/25/20 13:00 07/25/20 12:59 06/25/20 22:29 Tramadol HCl (Ultram) 100 mg Q4HR PRN PAIN 4 - 6 06/25/20 13:00 07/25/20 12:59 LEVEL 1 SEPSIS INFECTION CRITE: ABX Therapy LEVEL 2-SIRS (LIST ALL THAT AP: [id number] Cardiovascular Evidence: Not Assessed or None Hematologic Evidence: None/Not assessed Hepatic Evidence: None/Not assessed Metabolic Evidence: None/Not assessed Neurological Evidence: None/Not assessed Respiratory Evidence: Need for O2 to keep>90% Renal Evidence: None/Not assessed O2 Sat by Pulse Oximetry: 97 Oxygen Flow Rate: 10 Assessment/Plan Assessment/Plan Assessment/Plan Left hip fracture. POD day #1 from left hip ORIF by Dr. Nix monitor dressing monitor pain Anemia- ordered 1 unit PRBCs. Hgb 7.1. Expected blood loss following surgery DVT prophylaxis- Xarelto 10mg PO daily while at the hospital PT/OT eval and treat- walker, TTWB LLE, safety precautions Plan Left hip fracture. POD day #1 from left hip ORIF by Dr. Nix monitor dressing monitor pain Anemia- ordered 1 unit PRBCs. Hgb 7.1. Expected blood loss following surgery DVT prophylaxis- Xarelto 10mg PO daily while at the hospital PT/OT eval and treat- walker, TTWB LLE, safety precautions BOBBY BROOKS MD Jun 27, 2020 16:17
[2020-06-27] MEDS: HALDOL PO SCH (21:18)
[2020-06-27] MEDS: NEURONTIN PO SCH (21:18)
[2020-06-27] MEDS: REQUIP PO SCH (21:19)
[2020-06-27] MEDS: REMERON PO SCH (21:19)
[2020-06-28] MEDS: NS 1000ML 1,000 ML IV SCH ×2 (01:02→12:39)
[2020-06-28 01:12] VITALS: BP 117/53
[2020-06-28 04:41] VITALS: BP 109/45
[2020-06-28] MEDS: SYNTHROID PO SCH (06:03)
[2020-06-28 06:13] LABS: MEAN CORP HGB 32.4 pg (26-34); RED CELL DISTRIBUTION WIDTH 14.1 % (11.5-14.5)
[2020-06-28 06:40] LABS: CALCIUM 7.8 mg/dL (8.4-10.5); CARBON DIOXIDE 23.4 mmol/L (20.0-32)
[2020-06-28] MEDS: COLACE PO SCH (08:35)
[2020-06-28] MEDS: PEPCID PO SCH (08:36)
[2020-06-28] MEDS: ASPIRIN EC PO SCH (08:37)
[2020-06-28] MEDS: XARELTO PO SCH (08:37)
[2020-06-28] MEDS: CLARITIN PO SCH (08:38)
[2020-06-28] MEDS: TRICOR PO SCH (08:38)
[2020-06-28] MEDS: COGENTIN PO SCH ×2 (08:38→21:00)
[2020-06-28] MEDS: PROTONIX PO SCH (08:38)
--- NOTE | 2020-06-28 08:40 | PRM.PN ---
Subjective Subjective Date: Jun 28, 2020 Time: 08:32 Subjective patient sitting in bed, pain controlled left hip dressing intact, no s/s of infection hemoglobin 8.2 today, yesterday after 1 unit PRBCs was 9.2 VSS patient is working on transfers with PT Patient History: Patient reports no known family medical history. VTE VTE Risk Total Score: 2 VTE Risk Score VTE Risk: Score 0-1 = Low Risk (Aggressive mobilization; early ambulation; no VTE prophylaxis required) Score 2: Moderate Risk (Intermittent/Pneumatic Compression Device OR Lovenox/Heparin/Coumadin) Score 3-4: High Risk (Intermittent/Pneumatic Compression Device AND Lovenox/Heparin/Coumadin) Score > or =5: Highest Risk (Intermittent/Pneumatic Compression Device AND Lovenox/Heparin/Coumadin) Antico:Hep/LMWH/Coum/Xarelto: Yes Mechanical device ordered: Yes Review of Systems Constitutional: No: Fever, Chills, Sweats, Weakness, Malaise, Other Eyes: No: Pain, Vision change, Conjunctivae inflammation, Eyelid inflammation, Other, Redness ENT: No: Ear pain, Ear discharge, Nose pain, Nose discharge, Nose congestion, Mouth pain, Mouth swelling, Throat pain, Throat swelling, Other Respiratory: No: Cough, Dry, Shortness of breath, SOB with excertion, Wheezing, Hemoptysis, Pleuritic Pain, Sputum, Wheezing, Other Cardiovascular: No: Chest Pain, Palpitations, Orthopnea, Paroxysmal Noc. Dyspnea, Edema, Lt Headedness, Other Gastrointestinal: No: Nausea, Vomiting, Abdominal Pain, Diarrhea, Constipation, Melena, Hematochezia, Other Genitourinary: No Dysuria, No Frequency, No Incontinence, No Hematuria, No Retention, No Other Musculoskeletal: leg pain (left leg); No: other, neck pain, shoulder pain, arm pain, back pain, hand pain, foot pain Neurological: Weakness (Generalized weakness. Patient use a walker) Allergies: Coded Allergies: sulfamethoxazole (Verified Allergy, Unknown, 04/14/18) tetanus and diphtheria toxoids (Verified Allergy, Unknown, 04/14/18) trimethoprim (Verified Allergy, Unknown, 04/14/18) Scheduled Amlodipine Besylate (Amlodipine Besylate), 1 TAB PO DAILY, (Reported) Aspirin (Aspir-Low), 1 TAB PO DAILY, (Reported) Benztropine Mesylate (Benztropine Mesylate), 1 TAB PO BID, (Reported) Esomeprazole Magnesium (Nexium), 1 CAP PO DAILY, (Reported) Fenofibrate Nanocrystallized (Fenofibrate), 1 TAB PO DAILY, (Reported) Gabapentin (Gabapentin), 1 TAB PO HS, (Reported) Haloperidol (Haloperidol), 1 TAB PO HS, (Reported) Levocetirizine Dihydrochloride (Levocetirizine Dihydrochloride), 1 TAB PO HS, (Reported) Levothyroxine Sodium (Levothyroxine Sodium), 1 TAB PO DAILY, (Reported) Losartan Potassium (Losartan Potassium), 1 TAB PO DAILY, (Reported) Mirtazapine (Mirtazapine), 1 TAB PO HS, (Reported) Ropinirole Hcl (Requip), 1 TAB PO HS, (Reported) Objective Vitals and I/O Vital Sign - Last 24 Hours 06/27/20 06/27/20 06/27/20 06/27/20 10:23 10:50 11:15 12:30 Temp 97.9 98.2 98.3 98.1 Pulse 101 105 98 91 Resp 17 20 18 18 B/P (MAP) 118/50 113/56 109/67 (81) 116/57 Pulse Ox 97 06/27/20 06/27/20 06/27/20 06/28/20 16:35 20:20 23:47 01:12 Temp 98.2 98.5 98.8 Pulse 94 95 98 Resp 18 16 17 B/P (MAP) 139/47 (77) 131/76 (94) 117/53 (74) Pulse Ox 99 97 95 O2 Delivery Room Air Room Air Room Air Room Air 06/28/20 04:41 Temp 98.5 Pulse 85 Resp 16 B/P (MAP) 109/45 (66) Pulse Ox 96 O2 Delivery Room Air Intake and Output 06/28/20 07:00 Intake Total 2122 ml Output Total 2000 ml Balance 122 ml General: Alert, Oriented X3, Cooperative, No acute distress HEENT: Atraumatic, PERRLA, Mucous membr. moist/pink Neck: Supple Lungs: Clear to auscultation, Normal air movement Heart: Regular rate, Other Abdomen: Normal bowel sounds, Soft, No tenderness Extremities: No cyanosis, No edema, Normal pulses, Other (Left hip swelling. Dressing is CDI. No evidence of cellulitis or redness.) Skin: No rashes Neuro: Normal gait, Normal speech, Strength at 5/5 X4 ext Psych/Mental Status: Mental status NL, Mood NL, Other All Results(Lab/Rad) Laboratory Tests Test 06/25/20 16:46 06/25/20 21:00 06/26/20 04:37 06/26/20 05:30 Bedside Glucose 117 189 142 Urine Collection Type VOID Urine Color YELLOW Urine Appearance CLOUDY Urine Bilirubin NEGATIVE MG/DL Urine Ketones NEGATIVE Urine Specific [place] 1.020 Urine pH 5.5 Urine Protein NEGATIVE Urine Urobilinogen 0.2 Urine Nitrate NEGATIVE Urine Leukocyte Esterase SMALL Urine Blood TRACE Urine RBC 0-2 RBC/HPF Urine WBC 10-25 WBC/HPF Urine Squamous Epithelial Cells FEW #/HPF Urine Bacteria MANY Urine Glucose NEGATIVE Test 06/26/20 09:15 Bedside Glucose 124 Current Medications Medications (Trade) Dose Ordered Sig/Reji Route PRN Reason Start Time Stop Time Status Last Admin Dose Admin Morphine Sulfate (Morphine Sulfate) 4 mg STAT STAT IV 06/25/20 10:07 06/25/20 10:09 DC 06/25/20 10:35 Sodium Chloride 1,000 ml @ 0 mls/hr Q0M ONCE IV 06/25/20 10:30 06/25/20 10:31 DC 06/25/20 10:35 Ondansetron HCl (Zofran) 4 mg STAT STAT IV 06/25/20 10:07 06/25/20 10:09 DC 06/25/20 10:39 Sodium Chloride 1,000 ml @ ud STK-MED ONCE .ROUTE 06/25/20 10:24 06/25/20 10:26 DC Ondansetron HCl (Zofran) 4 mg STK-MED ONCE .ROUTE 06/25/20 10:25 06/25/20 10:26 DC Morphine Sulfate (Morphine Sulfate) 4 mg STK-MED ONCE .ROUTE 06/25/20 10:25 06/25/20 10:27 DC Tramadol HCl (Ultram) 50 mg Q4HR PRN PO PAIN 1 - 3 06/25/20 13:00 07/25/20 12:59 06/25/20 22:29 Tramadol HCl (Ultram) 100 mg Q4HR PRN PO PAIN 4 - 6 06/25/20 13:00 07/25/20 12:59 Morphine Sulfate (Morphine Sulfate) 3 mg Q6HR PRN IV PAIN 7 - 10 06/25/20 13:00 06/25/20 16:33 DC Ondansetron HCl (Zofran) 4 mg Q4H PRN IV NAUSEA / VOMITING 06/25/20 13:00 07/25/20 12:59 Enoxaparin Sodium (Lovenox) 40 mg STAT STAT SQ 06/25/20 12:44 06/25/20 14:06 DC 06/25/20 14:43 Insulin Human Regular (Humulin R) ACHS SQ 06/25/20 17:30 07/25/20 17:29 Enoxaparin Sodium (Lovenox) 40 mg STK-MED ONCE SQ 06/25/20 14:10 06/25/20 14:12 DC Amlodipine Besylate (Norvasc) 5 mg DAILY PO 06/26/20 09:00 07/26/20 08:59 Aspirin (Aspirin Ec) 81 mg DAILY PO 06/26/20 09:00 07/26/20 08:59 Pantoprazole Sodium (Protonix) 40 mg DAILY PO 06/26/20 09:00 07/26/20 08:59 Fenofibrate (Tricor) 145 mg DAILY PO 06/26/20 09:00 07/26/20 08:59 Haloperidol (Haldol) 5 mg HS PO 06/25/20 21:00 07/25/20 20:59 06/25/20 21:00 Levothyroxine Sodium (Synthroid) 75 mcg ACB PO 06/26/20 06:30 07/26/20 06:29 Losartan Potassium (Cozaar) 50 mg DAILY PO 06/26/20 09:00 07/26/20 08:59 Benztropine Mesylate (Cogentin) 0.5 mg BID PO 06/25/20 21:00 07/25/20 20:59 06/25/20 21:02 Gabapentin (Neurontin) 600 mg HS PO 06/25/20 21:00 07/25/20 20:59 06/25/20 21:01 Loratadine (Claritin) 10 mg DAILY PO 06/26/20 09:00 07/26/20 08:59 Mirtazapine (Remeron) 30 mg HS PO 06/25/20 21:00 07/25/20 20:59 06/25/20 20:59 Ropinirole HCl (Requip) 0.5 mg HS PO 06/25/20 21:00 07/25/20 20:59 06/25/20 21:02 Morphine Sulfate (Morphine Sulfate) 3 mg Q6HR PRN IV PAIN 7 - 10 06/25/20 16:33 07/25/20 12:59 Ropinirole HCl (Requip) 1 mg STK-MED ONCE .ROUTE 06/25/20 20:19 06/25/20 20:21 DC Benztropine Mesylate (Cogentin) 1 mg STK-MED ONCE .ROUTE 06/25/20 20:21 06/25/20 20:22 DC Haloperidol (Haldol) 5 mg STK-MED ONCE .ROUTE 06/25/20 20:21 06/25/20 20:23 DC Nicotine (Nicotine 21mg Patch) 1 each DAILY TD 06/25/20 21:00 07/25/20 20:59 06/25/20 22:28 Nicotine (Nicotine 21mg Patch) 1 each STK-MED ONCE TD 06/25/20 21:45 06/25/20 21:48 DC Sodium Chloride 1,000 ml @ ud STK-MED ONCE .ROUTE 06/26/20 08:42 06/26/20 08:44 DC Sodium Chloride 1,000 ml @ 100 mls/hr Q10H IV 06/26/20 09:00 07/26/20 08:59 Hydromorphone HCl (Dilaudid) 0.5 mg OT ONCE IV 06/26/20 11:00 06/26/20 12:25 DC 06/26/20 11:18 Sodium Chloride 100 ml @ ud STK-MED ONCE IV 06/26/20 12:15 06/26/20 12:17 DC Cefazolin Sodium (Ancef) 1 gm STK-MED ONCE .ROUTE 06/26/20 12:15 06/26/20 12:18 DC Sodium Chloride (Sodium Chloride Irr Bottle) 1,000 ml STK-MED ONCE IR 06/26/20 12:21 06/26/20 12:23 DC Sodium Chloride 1,000 ml @ ud STK-MED ONCE .ROUTE 06/26/20 13:01 06/26/20 13:03 DC Bupivacaine HCl (Sensorcaine 0.5% Vial) 5 mg STK-MED ONCE .ROUTE 06/26/20 13:01 06/26/20 13:03 DC Acetaminophen 100 ml @ ud STK-MED ONCE IV 06/26/20 13:01 06/26/20 13:03 DC Lidocaine HCl (Lidocaine 2% Vial) 500 mg STK-MED ONCE .ROUTE 06/26/20 13:02 06/26/20 13:04 DC Tranexamic Acid (Tranexamic Acid) 1,000 mg STK-MED ONCE .ROUTE 06/26/20 13:02 06/26/20 13:04 DC Ondansetron HCl (Zofran) 4 mg STK-MED ONCE .ROUTE 06/26/20 13:02 06/26/20 13:04 DC Fentanyl Citrate (Sublimaze) 50 mcg STK-MED ONCE .ROUTE 06/26/20 13:03 06/26/20 13:05 DC Propofol (Diprivan) 200 mg STK-MED ONCE IV 06/26/20 13:03 06/26/20 13:05 DC Sterile Water (Water) 1,000 ml STK-MED ONCE .ROUTE 06/26/20 13:57 06/26/20 13:59 DC Course Sepsis Screening Results: Posi: NEGATIVE Sepsis Qualifier/Stage: NO DEFINITE RISK Duration or Total Time Spent w: 16M Vitals & review Data Vital Sign - Last 24 Hours 06/25/20 06/25/20 06/25/20 06/26/20 16:13 20:15 22:55 00:15 Temp 98.1 98.5 98.3 Pulse 74 72 86 Resp 20 20 B/P (MAP) 132/60 (84) 103/46 (65) Pulse Ox 97 95 O2 Delivery Room Air Room Air Room Air 06/26/20 06/26/20 06/26/20 04:00 07:26 07:30 Temp 98.1 97.7 Pulse 80 74 Resp 18 18 B/P (MAP) 149/47 (81) 143/57 (85) Pulse Ox 97 93 O2 Delivery Room Air Room Air Intake and Output 06/26/20 06:59 Intake Total 850 ml Output Total 1100 ml Balance -250 ml Laboratory Tests Test 06/25/20 10:20 06/25/20 10:29 06/25/20 16:46 06/25/20 21:00 White Blood Count 20.0 10^3/uL Red Blood Count 4.20 10^6/uL Hemoglobin 13.1 g/dL Hematocrit 37.4 % Mean Corpuscular Volume 89.0 fL Mean Corpuscular Hemoglobin 31.2 pg Mean Corpuscular Hemoglobin Concent 35.0 g/dL Red Cell Distribution Width 13.1 % Platelet Count 331 10^3/uL Mean Platelet Volume 9.8 fL Neutrophils (%) (Auto) 88.1 % Lymphocytes (%) (Auto) 4.0 % Monocytes (%) (Auto) 7.6 % Neutrophils # (Auto) 17.6 10^3/uL Lymphocytes # (Auto) 0.79 10^3/uL1 Monocytes # (Auto) 1.5 10^3/uL Absolute Immature Granulocyte (auto 0.04 10^3 u/L Absolute Eosinophils (auto) 0.0 10^3/uL Immature Granulocytes % 0.20 % Eosinophils % 0.0 % Basophils % 0.1 % Basophils # 0.0 10^3/uL Prothrombin Time 10.6 SEC Prothrombin Time INR (Non-Therap) 1.0 Activated Partial Thromboplast Time 26.5 SEC Sodium Level 128 mmol/L Potassium Level 3.9 mmol/L Chloride Level 93.0 mmol/L Carbon Dioxide Level 23.1 mmol/L Anion Gap 15.8 Blood Urea Nitrogen 8 mg/dL Creatinine 0.96 mg/dL Estimated GFR () 68.4 Est GFR (CKD-EPI)(Non-Afr [place]) 56.5 BUN/Creatinine Ratio 8.0 Glucose Level 181 mg/dL Calcium Level 8.9 mg/dL Total Bilirubin 0.3 mg/dL Aspartate Amino Transf (AST/SGOT) 21 U/L Alanine Aminotransferase (ALT/SGPT) 13 U/L Alkaline Phosphatase 111 U/L Total Creatine Kinase 253 U/L Creatine Kinase MB 2.8 ng/mL Troponin I < 0.02 ng/mL Pro-B-Type Natriuretic Peptide 76 pg/mL Total Protein 6.7 g/dL Albumin 3.4 g/dL Globulin 3.3 Albumin/Globulin Ratio 1.030 Differential Total Cells Counted 100 #CELLS Segmented Neutrophils 86 % Band Neutrophils 1 % Lymphocytes 5 % Monocytes 8 % Platelet Estimate ADEQUATE Platelet Morphology NORMAL Blood Morphology Comment NORMAL MORPHOLOGY Bedside Glucose 117 189 Test 06/26/20 04:37 06/26/20 05:30 06/26/20 09:15 Bedside Glucose 142 124 Urine Collection Type VOID Urine Color YELLOW Urine Appearance CLOUDY Urine Bilirubin NEGATIVE MG/DL Urine Ketones NEGATIVE Urine Specific [place] 1.020 Urine pH 5.5 Urine Protein NEGATIVE Urine Urobilinogen 0.2 Urine Nitrate NEGATIVE Urine Leukocyte Esterase SMALL Urine Blood TRACE Urine RBC 0-2 RBC/HPF Urine WBC 10-25 WBC/HPF Urine Squamous Epithelial Cells FEW #/HPF Urine Bacteria MANY Urine Glucose NEGATIVE Current Medications Medications (Trade) Dose Ordered Sig/Reji PRN Reason Start Time Stop Time Status Last Admin Amlodipine Besylate (Norvasc) 5 mg DAILY 06/26/20 09:00 07/26/20 08:59 Aspirin (Aspirin Ec) 81 mg DAILY 06/26/20 09:00 07/26/20 08:59 Benztropine Mesylate (Cogentin) 0.5 mg BID 06/25/20 21:00 07/25/20 20:59 06/25/20 21:02 Fenofibrate (Tricor) 145 mg DAILY 06/26/20 09:00 07/26/20 08:59 Gabapentin (Neurontin) 600 mg HS 06/25/20 21:00 07/25/20 20:59 06/25/20 21:01 Haloperidol (Haldol) 5 mg HS 06/25/20 21:00 07/25/20 20:59 06/25/20 21:00 Insulin Human Regular (Humulin R) ACHS 06/25/20 17:30 07/25/20 17:29 Levothyroxine Sodium (Synthroid) 75 mcg ACB 06/26/20 06:30 07/26/20 06:29 Loratadine (Claritin) 10 mg DAILY 06/26/20 09:00 07/26/20 08:59 Losartan Potassium (Cozaar) 50 mg DAILY 06/26/20 09:00 07/26/20 08:59 Mirtazapine (Remeron) 30 mg HS 06/25/20 21:00 07/25/20 20:59 06/25/20 20:59 Morphine Sulfate (Morphine Sulfate) 3 mg Q6HR PRN PAIN 7 - 10 06/25/20 16:33 07/25/20 12:59 Nicotine (Nicotine 21mg Patch) 1 each DAILY 06/25/20 21:00 07/25/20 20:59 06/25/20 22:28 Ondansetron HCl (Zofran) 4 mg Q4H PRN NAUSEA / VOMITING 06/25/20 13:00 07/25/20 12:59 Pantoprazole Sodium (Protonix) 40 mg DAILY 06/26/20 09:00 07/26/20 08:59 Ropinirole HCl (Requip) 0.5 mg HS 06/25/20 21:00 07/25/20 20:59 06/25/20 21:02 Sodium Chloride 1,000 ml @ 100 mls/hr Q10H 06/26/20 09:00 07/26/20 08:59 Tramadol HCl (Ultram) 50 mg Q4HR PRN PAIN 1 - 3 06/25/20 13:00 07/25/20 12:59 06/25/20 22:29 Tramadol HCl (Ultram) 100 mg Q4HR PRN PAIN 4 - 6 06/25/20 13:00 07/25/20 12:59 LEVEL 1 SEPSIS INFECTION CRITE: ABX Therapy, Recent Invasive Procedure LEVEL 2-SIRS (LIST ALL THAT AP: None/Not assessed Cardiovascular Evidence: Not Assessed or None Hematologic Evidence: None/Not assessed Hepatic Evidence: None/Not assessed Metabolic Evidence: None/Not assessed Neurological Evidence: None/Not assessed Respiratory Evidence: None/Not assessed Renal Evidence: None/Not assessed O2 Sat by Pulse Oximetry: 96 Oxygen Flow Rate: 10 Assessment/Plan Assessment/Plan Assessment/Plan Problems: (1) Anemia following surgery ICD Code: D64.9 - Anemia, unspecified SNOMED: 954870537, [id number] (2) Fracture, hip Status: Acute ICD Code: S72.009A - Fracture of unspecified part of neck of unspecified femur, initial encounter for closed fracture SNOMED: 979386440 Plan Left hip fracture. POD day #2 from left hip ORIF by Dr. Nix monitor dressing monitor pain Anemia- Hgb 8.2 today. Ordered CBC for today at 1600. Expected blood loss following surgery DVT prophylaxis- Xarelto 10mg PO daily while at the hospital PT/OT eval and treat- walker, TTWB LLE, safety precautions Problem Qualifiers (1) Fracture, hip: Laterality: left SERAJAYDA PATEL [employer] Jun 28, 2020 08:40
[2020-06-28 09:04] VITALS: BP 147/60
[2020-06-28] MEDS: COZAAR PO SCH (09:15)
[2020-06-28] MEDS: HUMULIN R SQ SCH ×4 (09:17→21:00)
[2020-06-28] MEDS: NORVASC PO SCH (09:24)
[2020-06-28] MEDS: OFIRMEV IV SCH ×2 (09:32→18:49)
[2020-06-28 11:30] VITALS: BP 133/61
--- NOTE | 2020-06-28 12:40 | PRM.PN ---
Subjective Subjective Date: Jun 28, 2020 Time: 12:33 Subjective Patient denies any complaint. She is tolerating oral intake. There is no bleeding from the wound on the left hip. She was transfused with 2 units PRBC yesterday. Patient is pending to be discharged home home health care. They r efused to go to a rehab. Patient History: Patient reports no known family medical history. VTE VTE Risk Total Score: 2 VTE Risk Score VTE Risk: Score 0-1 = Low Risk (Aggressive mobilization; early ambulation; no VTE prophylaxis required) Score 2: Moderate Risk (Intermittent/Pneumatic Compression Device OR Lovenox/Heparin/Coumadin) Score 3-4: High Risk (Intermittent/Pneumatic Compression Device AND Lovenox/Heparin/Coumadin) Score > or =5: Highest Risk (Intermittent/Pneumatic Compression Device AND Lovenox/Heparin/Coumadin) Antico:Hep/LMWH/Coum/Xarelto: Yes Mechanical device ordered: Yes Review of Systems Constitutional: No: Fever, Chills, Sweats, Weakness, Malaise, Other Eyes: No: Pain, Vision change, Conjunctivae inflammation, Eyelid inflammation, Other, Redness ENT: No: Ear pain, Ear discharge, Nose pain, Nose discharge, Nose congestion, Mouth pain, Mouth swelling, Throat pain, Throat swelling, Other Respiratory: No: Cough, Dry, Shortness of breath, SOB with excertion, Wheezing, Hemoptysis, Pleuritic Pain, Sputum, Wheezing, Other Cardiovascular: No: Chest Pain, Palpitations, Orthopnea, Paroxysmal Noc. Dyspnea, Edema, Lt Headedness, Other Gastrointestinal: No: Nausea, Vomiting, Abdominal Pain, Diarrhea, Constipation, Melena, Hematochezia, Other Genitourinary: No Dysuria, No Frequency, No Incontinence, No Hematuria, No Retention, No Other Musculoskeletal: leg pain (left leg); No: other, neck pain, shoulder pain, arm pain, back pain, hand pain, foot pain Neurological: Weakness (Generalized weakness. Patient use a walker) Allergies: Coded Allergies: sulfamethoxazole (Verified Allergy, Unknown, 04/14/18) tetanus and diphtheria toxoids (Verified Allergy, Unknown, 04/14/18) trimethoprim (Verified Allergy, Unknown, 04/14/18) Scheduled Amlodipine Besylate (Amlodipine Besylate), 1 TAB PO DAILY, (Reported) Aspirin (Aspir-Low), 1 TAB PO DAILY, (Reported) Benztropine Mesylate (Benztropine Mesylate), 1 TAB PO BID, (Reported) Esomeprazole Magnesium (Nexium), 1 CAP PO DAILY, (Reported) Fenofibrate Nanocrystallized (Fenofibrate), 1 TAB PO DAILY, (Reported) Gabapentin (Gabapentin), 1 TAB PO HS, (Reported) Haloperidol (Haloperidol), 1 TAB PO HS, (Reported) Levocetirizine Dihydrochloride (Levocetirizine Dihydrochloride), 1 TAB PO HS, (Reported) Levothyroxine Sodium (Levothyroxine Sodium), 1 TAB PO DAILY, (Reported) Losartan Potassium (Losartan Potassium), 1 TAB PO DAILY, (Reported) Mirtazapine (Mirtazapine), 1 TAB PO HS, (Reported) Ropinirole Hcl (Requip), 1 TAB PO HS, (Reported) Objective Vitals and I/O Vital Sign - Last 24 Hours 06/27/20 06/27/20 06/27/20 06/28/20 16:35 20:20 23:47 01:12 Temp 98.2 98.5 98.8 Pulse 94 95 98 Resp 18 16 17 B/P (MAP) 139/47 (77) 131/76 (94) 117/53 (74) Pulse Ox 99 97 95 O2 Delivery Room Air Room Air Room Air Room Air 06/28/20 06/28/20 06/28/20 06/28/20 04:41 09:04 09:15 09:24 Temp 98.5 99.5 Pulse 85 90 90 Resp 16 16 B/P (MAP) 109/45 (66) 147/60 (89) 147/60 147/60 Pulse Ox 96 96 O2 Delivery Room Air Room Air 06/28/20 12:03 O2 Delivery Room Air Intake and Output 06/28/20 07:00 Intake Total 2122 ml Output Total 2000 ml Balance 122 ml General: Alert, Oriented X3, Cooperative, No acute distress HEENT: Atraumatic, PERRLA, Mucous membr. moist/pink Neck: Supple Lungs: Clear to auscultation, Normal air movement Heart: Regular rate, Other Abdomen: Normal bowel sounds, Soft, No tenderness Extremities: No cyanosis, No edema, Normal pulses, Other (Left hip swelling. Dressing is CDI. No evidence of cellulitis or redness.Pedal pulses are present. Sensory is preserved.) Skin: No rashes Neuro: Normal gait, Normal speech, Strength at 5/5 X4 ext Psych/Mental Status: Mental status NL, Mood NL, Other All Results(Lab/Rad) Laboratory Tests Test 06/25/20 16:46 06/25/20 21:00 06/26/20 04:37 06/26/20 05:30 Bedside Glucose 117 189 142 Urine Collection Type VOID Urine Color YELLOW Urine Appearance CLOUDY Urine Bilirubin NEGATIVE MG/DL Urine Ketones NEGATIVE Urine Specific [place] 1.020 Urine pH 5.5 Urine Protein NEGATIVE Urine Urobilinogen 0.2 Urine Nitrate NEGATIVE Urine Leukocyte Esterase SMALL Urine Blood TRACE Urine RBC 0-2 RBC/HPF Urine WBC 10-25 WBC/HPF Urine Squamous Epithelial Cells FEW #/HPF Urine Bacteria MANY Urine Glucose NEGATIVE Test 06/26/20 09:15 Bedside Glucose 124 Current Medications Medications (Trade) Dose Ordered Sig/Reji Route PRN Reason Start Time Stop Time Status Last Admin Dose Admin Morphine Sulfate (Morphine Sulfate) 4 mg STAT STAT IV 06/25/20 10:07 06/25/20 10:09 DC 06/25/20 10:35 Sodium Chloride 1,000 ml @ 0 mls/hr Q0M ONCE IV 06/25/20 10:30 06/25/20 10:31 DC 06/25/20 10:35 Ondansetron HCl (Zofran) 4 mg STAT STAT IV 06/25/20 10:07 06/25/20 10:09 DC 06/25/20 10:39 Sodium Chloride 1,000 ml @ ud STK-MED ONCE .ROUTE 06/25/20 10:24 06/25/20 10:26 DC Ondansetron HCl (Zofran) 4 mg STK-MED ONCE .ROUTE 06/25/20 10:25 06/25/20 10:26 DC Morphine Sulfate (Morphine Sulfate) 4 mg STK-MED ONCE .ROUTE 06/25/20 10:25 06/25/20 10:27 DC Tramadol HCl (Ultram) 50 mg Q4HR PRN PO PAIN 1 - 3 06/25/20 13:00 07/25/20 12:59 06/25/20 22:29 Tramadol HCl (Ultram) 100 mg Q4HR PRN PO PAIN 4 - 6 06/25/20 13:00 07/25/20 12:59 Morphine Sulfate (Morphine Sulfate) 3 mg Q6HR PRN IV PAIN 7 - 10 06/25/20 13:00 06/25/20 16:33 DC Ondansetron HCl (Zofran) 4 mg Q4H PRN IV NAUSEA / VOMITING 06/25/20 13:00 07/25/20 12:59 Enoxaparin Sodium (Lovenox) 40 mg STAT STAT SQ 06/25/20 12:44 06/25/20 14:06 DC 06/25/20 14:43 Insulin Human Regular (Humulin R) ACHS SQ 06/25/20 17:30 07/25/20 17:29 Enoxaparin Sodium (Lovenox) 40 mg STK-MED ONCE SQ 06/25/20 14:10 06/25/20 14:12 DC Amlodipine Besylate (Norvasc) 5 mg DAILY PO 06/26/20 09:00 07/26/20 08:59 Aspirin (Aspirin Ec) 81 mg DAILY PO 06/26/20 09:00 07/26/20 08:59 Pantoprazole Sodium (Protonix) 40 mg DAILY PO 06/26/20 09:00 07/26/20 08:59 Fenofibrate (Tricor) 145 mg DAILY PO 06/26/20 09:00 07/26/20 08:59 Haloperidol (Haldol) 5 mg HS PO 06/25/20 21:00 07/25/20 20:59 06/25/20 21:00 Levothyroxine Sodium (Synthroid) 75 mcg ACB PO 06/26/20 06:30 07/26/20 06:29 Losartan Potassium (Cozaar) 50 mg DAILY PO 06/26/20 09:00 07/26/20 08:59 Benztropine Mesylate (Cogentin) 0.5 mg BID PO 06/25/20 21:00 07/25/20 20:59 06/25/20 21:02 Gabapentin (Neurontin) 600 mg HS PO 06/25/20 21:00 07/25/20 20:59 06/25/20 21:01 Loratadine (Claritin) 10 mg DAILY PO 06/26/20 09:00 07/26/20 08:59 Mirtazapine (Remeron) 30 mg HS PO 06/25/20 21:00 07/25/20 20:59 06/25/20 20:59 Ropinirole HCl (Requip) 0.5 mg HS PO 06/25/20 21:00 07/25/20 20:59 06/25/20 21:02 Morphine Sulfate (Morphine Sulfate) 3 mg Q6HR PRN IV PAIN 7 - 10 06/25/20 16:33 07/25/20 12:59 Ropinirole HCl (Requip) 1 mg STK-MED ONCE .ROUTE 06/25/20 20:19 06/25/20 20:21 DC Benztropine Mesylate (Cogentin) 1 mg STK-MED ONCE .ROUTE 06/25/20 20:21 06/25/20 20:22 DC Haloperidol (Haldol) 5 mg STK-MED ONCE .ROUTE 06/25/20 20:21 06/25/20 20:23 DC Nicotine (Nicotine 21mg Patch) 1 each DAILY TD 06/25/20 21:00 07/25/20 20:59 06/25/20 22:28 Nicotine (Nicotine 21mg Patch) 1 each STK-MED ONCE TD 06/25/20 21:45 06/25/20 21:48 DC Sodium Chloride 1,000 ml @ ud STK-MED ONCE .ROUTE 06/26/20 08:42 06/26/20 08:44 DC Sodium Chloride 1,000 ml @ 100 mls/hr Q10H IV 06/26/20 09:00 07/26/20 08:59 Hydromorphone HCl (Dilaudid) 0.5 mg OT ONCE IV 06/26/20 11:00 06/26/20 12:25 DC 06/26/20 11:18 Sodium Chloride 100 ml @ ud STK-MED ONCE IV 06/26/20 12:15 06/26/20 12:17 DC Cefazolin Sodium (Ancef) 1 gm STK-MED ONCE .ROUTE 06/26/20 12:15 06/26/20 12:18 DC Sodium Chloride (Sodium Chloride Irr Bottle) 1,000 ml STK-MED ONCE IR 06/26/20 12:21 06/26/20 12:23 DC Sodium Chloride 1,000 ml @ ud STK-MED ONCE .ROUTE 06/26/20 13:01 06/26/20 13:03 DC Bupivacaine HCl (Sensorcaine 0.5% Vial) 5 mg STK-MED ONCE .ROUTE 06/26/20 13:01 06/26/20 13:03 DC Acetaminophen 100 ml @ ud STK-MED ONCE IV 06/26/20 13:01 06/26/20 13:03 DC Lidocaine HCl (Lidocaine 2% Vial) 500 mg STK-MED ONCE .ROUTE 06/26/20 13:02 06/26/20 13:04 DC Tranexamic Acid (Tranexamic Acid) 1,000 mg STK-MED ONCE .ROUTE 06/26/20 13:02 06/26/20 13:04 DC Ondansetron HCl (Zofran) 4 mg STK-MED ONCE .ROUTE 06/26/20 13:02 06/26/20 13:04 DC Fentanyl Citrate (Sublimaze) 50 mcg STK-MED ONCE .ROUTE 06/26/20 13:03 06/26/20 13:05 DC Propofol (Diprivan) 200 mg STK-MED ONCE IV 06/26/20 13:03 06/26/20 13:05 DC Sterile Water (Water) 1,000 ml STK-MED ONCE .ROUTE 06/26/20 13:57 06/26/20 13:59 DC Course Sepsis Screening Results: Posi: NEGATIVE Sepsis Qualifier/Stage: NO DEFINITE RISK Duration or Total Time Spent w: 16M Vitals & review Data Vital Sign - Last 24 Hours 06/25/20 06/25/20 06/25/20 06/26/20 16:13 20:15 22:55 00:15 Temp 98.1 98.5 98.3 Pulse 74 72 86 Resp 20 20 B/P (MAP) 132/60 (84) 103/46 (65) Pulse Ox 97 95 O2 Delivery Room Air Room Air Room Air 06/26/20 06/26/20 06/26/20 04:00 07:26 07:30 Temp 98.1 97.7 Pulse 80 74 Resp 18 18 B/P (MAP) 149/47 (81) 143/57 (85) Pulse Ox 97 93 O2 Delivery Room Air Room Air Intake and Output 06/26/20 06:59 Intake Total 850 ml Output Total 1100 ml Balance -250 ml Laboratory Tests Test 06/25/20 10:20 06/25/20 10:29 06/25/20 16:46 06/25/20 21:00 White Blood Count 20.0 10^3/uL Red Blood Count 4.20 10^6/uL Hemoglobin 13.1 g/dL Hematocrit 37.4 % Mean Corpuscular Volume 89.0 fL Mean Corpuscular Hemoglobin 31.2 pg Mean Corpuscular Hemoglobin Concent 35.0 g/dL Red Cell Distribution Width 13.1 % Platelet Count 331 10^3/uL Mean Platelet Volume 9.8 fL Neutrophils (%) (Auto) 88.1 % Lymphocytes (%) (Auto) 4.0 % Monocytes (%) (Auto) 7.6 % Neutrophils # (Auto) 17.6 10^3/uL Lymphocytes # (Auto) 0.79 10^3/uL1 Monocytes # (Auto) 1.5 10^3/uL Absolute Immature Granulocyte (auto 0.04 10^3 u/L Absolute Eosinophils (auto) 0.0 10^3/uL Immature Granulocytes % 0.20 % Eosinophils % 0.0 % Basophils % 0.1 % Basophils # 0.0 10^3/uL Prothrombin Time 10.6 SEC Prothrombin Time INR (Non-Therap) 1.0 Activated Partial Thromboplast Time 26.5 SEC Sodium Level 128 mmol/L Potassium Level 3.9 mmol/L Chloride Level 93.0 mmol/L Carbon Dioxide Level 23.1 mmol/L Anion Gap 15.8 Blood Urea Nitrogen 8 mg/dL Creatinine 0.96 mg/dL Estimated GFR () 68.4 Est GFR (CKD-EPI)(Non-Afr [place]) 56.5 BUN/Creatinine Ratio 8.0 Glucose Level 181 mg/dL Calcium Level 8.9 mg/dL Total Bilirubin 0.3 mg/dL Aspartate Amino Transf (AST/SGOT) 21 U/L Alanine Aminotransferase (ALT/SGPT) 13 U/L Alkaline Phosphatase 111 U/L Total Creatine Kinase 253 U/L Creatine Kinase MB 2.8 ng/mL Troponin I < 0.02 ng/mL Pro-B-Type Natriuretic Peptide 76 pg/mL Total Protein 6.7 g/dL Albumin 3.4 g/dL Globulin 3.3 Albumin/Globulin Ratio 1.030 Differential Total Cells Counted 100 #CELLS Segmented Neutrophils 86 % Band Neutrophils 1 % Lymphocytes 5 % Monocytes 8 % Platelet Estimate ADEQUATE Platelet Morphology NORMAL Blood Morphology Comment NORMAL MORPHOLOGY Bedside Glucose 117 189 Test 06/26/20 04:37 06/26/20 05:30 06/26/20 09:15 Bedside Glucose 142 124 Urine Collection Type VOID Urine Color YELLOW Urine Appearance CLOUDY Urine Bilirubin NEGATIVE MG/DL Urine Ketones NEGATIVE Urine Specific [place] 1.020 Urine pH 5.5 Urine Protein NEGATIVE Urine Urobilinogen 0.2 Urine Nitrate NEGATIVE Urine Leukocyte Esterase SMALL Urine Blood TRACE Urine RBC 0-2 RBC/HPF Urine WBC 10-25 WBC/HPF Urine Squamous Epithelial Cells FEW #/HPF Urine Bacteria MANY Urine Glucose NEGATIVE Current Medications Medications (Trade) Dose Ordered Sig/Reji PRN Reason Start Time Stop Time Status Last Admin Amlodipine Besylate (Norvasc) 5 mg DAILY 06/26/20 09:00 07/26/20 08:59 Aspirin (Aspirin Ec) 81 mg DAILY 06/26/20 09:00 07/26/20 08:59 Benztropine Mesylate (Cogentin) 0.5 mg BID 06/25/20 21:00 07/25/20 20:59 06/25/20 21:02 Fenofibrate (Tricor) 145 mg DAILY 06/26/20 09:00 07/26/20 08:59 Gabapentin (Neurontin) 600 mg HS 06/25/20 21:00 07/25/20 20:59 06/25/20 21:01 Haloperidol (Haldol) 5 mg HS 06/25/20 21:00 07/25/20 20:59 06/25/20 21:00 Insulin Human Regular (Humulin R) ACHS 06/25/20 17:30 07/25/20 17:29 Levothyroxine Sodium (Synthroid) 75 mcg ACB 06/26/20 06:30 07/26/20 06:29 Loratadine (Claritin) 10 mg DAILY 06/26/20 09:00 07/26/20 08:59 Losartan Potassium (Cozaar) 50 mg DAILY 06/26/20 09:00 07/26/20 08:59 Mirtazapine (Remeron) 30 mg HS 06/25/20 21:00 07/25/20 20:59 06/25/20 20:59 Morphine Sulfate (Morphine Sulfate) 3 mg Q6HR PRN PAIN 7 - 10 06/25/20 16:33 07/25/20 12:59 Nicotine (Nicotine 21mg Patch) 1 each DAILY 06/25/20 21:00 07/25/20 20:59 06/25/20 22:28 Ondansetron HCl (Zofran) 4 mg Q4H PRN NAUSEA / VOMITING 06/25/20 13:00 07/25/20 12:59 Pantoprazole Sodium (Protonix) 40 mg DAILY 06/26/20 09:00 07/26/20 08:59 Ropinirole HCl (Requip) 0.5 mg HS 06/25/20 21:00 07/25/20 20:59 06/25/20 21:02 Sodium Chloride 1,000 ml @ 100 mls/hr Q10H 06/26/20 09:00 07/26/20 08:59 Tramadol HCl (Ultram) 50 mg Q4HR PRN PAIN 1 - 3 06/25/20 13:00 07/25/20 12:59 06/25/20 22:29 Tramadol HCl (Ultram) 100 mg Q4HR PRN PAIN 4 - 6 06/25/20 13:00 07/25/20 12:59 LEVEL 1 SEPSIS INFECTION CRITE: ABX Therapy, Recent Invasive Procedure LEVEL 2-SIRS (LIST ALL THAT AP: None/Not assessed Cardiovascular Evidence: Not Assessed or None Hematologic Evidence: None/Not assessed Hepatic Evidence: None/Not assessed Metabolic Evidence: None/Not assessed Neurological Evidence: None/Not assessed Respiratory Evidence: None/Not assessed Renal Evidence: None/Not assessed O2 Sat by Pulse Oximetry: 96 Oxygen Flow Rate: 10 Assessment/Plan Assessment/Plan Assessment/Plan Problems Medical Problems: (1) COPD (chronic obstructive pulmonary disease) (2) Diabetes 1.5, managed as type 2 (3) Fracture, hip (4) Paranoid schizophrenia (5). Acute anemia from blood loss. Plan 1) COPD (chronic obstructive pulmonary disease) Patient appears stable. There is no respiratory distress. Continue nebulizers (2) Diabetes 1.5, managed as type 2 Patient is tolerating the diet and blood sugars appear stable. Resume home medications and continue SSI while in the hospital (3) Fracture, hip Patient is on the POD day 2 for left hip surgery. monitor dressing monitor pain Anemia- Hgb 8. today. Pending CBC for today at 1600. Expected blood loss following surgery DVT prophylaxis- Xarelto 10mg PO daily while at the hospital. We will continue aspirin as an outpatient PT/OT eval and treat- walker, TTWB LLE, safety precautions Patient is post transfusion of 2 units packed RBC. Pain appears controlled. Patient preferred to go home with a daughter and home health care for PT OT. They refused to go to rehab. (4) Paranoid schizophrenia Patient appears stable. Resume the home medications for schizophrenia including benztropine and Haldol (5). Acute anemia from blood loss. Left hip fracture. POD day #2 from left hip ORIF by BOBBY Lo MD Jun 28, 2020 12:40
[2020-06-28 16:20] LABS: MEAN CORP HGB 31.8 pg (26-34); RED CELL DISTRIBUTION WIDTH 14.1 % (11.5-14.5)
[2020-06-28 16:45] VITALS: BP 127/64
[2020-06-28 20:00] VITALS: BP 130/70
[2020-06-28] MEDS: NICOTINE 21MG PATCH TD SCH (21:00)
[2020-06-28] MEDS: REQUIP PO SCH (21:00)
[2020-06-28] MEDS: HALDOL PO SCH (21:00)
[2020-06-28] MEDS: NEURONTIN PO SCH (21:00)
[2020-06-28] MEDS: REMERON PO SCH (21:54)
[2020-06-29] VITALS: BP 118/51
[2020-06-29] MEDS: OFIRMEV IV SCH ×3 (00:50→23:31)
[2020-06-29] MEDS: NS 1000ML 1,000 ML IV SCH ×3 (00:55→18:07)
[2020-06-29 04:05] VITALS: BP 108/52
[2020-06-29 06:48] LABS: CALCIUM 7.5 mg/dL (8.4-10.5); CARBON DIOXIDE 25.4 mmol/L (20.0-32)
[2020-06-29 06:52] LABS: MEAN CORP HGB 31.7 pg (26-34); RED CELL DISTRIBUTION WIDTH 14.1 % (11.5-14.5)
[2020-06-29 07:33] VITALS: BP 119/56
[2020-06-29] MEDS: COZAAR PO SCH (08:28)
[2020-06-29] MEDS: HUMULIN R SQ SCH ×4 (09:00→21:00)
[2020-06-29] MEDS: TRICOR PO SCH (09:01)
[2020-06-29] MEDS: CLARITIN PO SCH (09:01)
[2020-06-29] MEDS: PEPCID PO SCH (09:02)
[2020-06-29] MEDS: ASPIRIN EC PO SCH (09:02)
[2020-06-29] MEDS: COLACE PO SCH (09:02)
[2020-06-29] MEDS: PROTONIX PO SCH (09:02)
[2020-06-29] MEDS: XARELTO PO SCH (09:03)
[2020-06-29] MEDS: COGENTIN PO SCH ×2 (09:03→20:40)
[2020-06-29] MEDS: NORVASC PO SCH (09:11)
--- NOTE | 2020-06-29 09:25 | PRM.PN ---
Subjective Subjective Date: Jun 29, 2020 Time: 09:17 Subjective patient sitting in wheelchair, states it was easier to transfer from bed to wheelchair today appetite good VSS hgb 7.8 today, repeat cbc today. no s/s of bleeding pain controlled Patient History: Patient reports no known family medical history. VTE VTE Risk Total Score: 2 VTE Risk Score VTE Risk: Score 0-1 = Low Risk (Aggressive mobilization; early ambulation; no VTE prophylaxis required) Score 2: Moderate Risk (Intermittent/Pneumatic Compression Device OR Lovenox/Heparin/Coumadin) Score 3-4: High Risk (Intermittent/Pneumatic Compression Device AND Lovenox/Heparin/Coumadin) Score > or =5: Highest Risk (Intermittent/Pneumatic Compression Device AND Lovenox/Heparin/Coumadin) Antico:Hep/LMWH/Coum/Xarelto: Yes Mechanical device ordered: Yes Review of Systems Constitutional: No: Fever, Chills, Sweats, Weakness, Malaise, Other Eyes: No: Pain, Vision change, Conjunctivae inflammation, Eyelid inflammation, Other, Redness ENT: No: Ear pain, Ear discharge, Nose pain, Nose discharge, Nose congestion, Mouth pain, Mouth swelling, Throat pain, Throat swelling, Other Respiratory: No: Cough, Dry, Shortness of breath, SOB with excertion, Wheezing, Hemoptysis, Pleuritic Pain, Sputum, Wheezing, Other Cardiovascular: No: Chest Pain, Palpitations, Orthopnea, Paroxysmal Noc. D yspnea, Edema, Lt Headedness, Other Gastrointestinal: No: Nausea, Vomiting, Abdominal Pain, Diarrhea, Constipation, Melena, Hematochezia, Other Genitourinary: No Dysuria, No Frequency, No Incontinence, No Hematuria, No Retention, No Other Musculoskeletal: leg pain (left leg); No: other, neck pain, shoulder pain, arm pain, back pain, hand pain, foot pain Neurological: Weakness (Generalized weakness. Patient use a walker) Allergies: Coded Allergies: sulfamethoxazole (Verified Allergy, Unknown, 04/14/18) tetanus and diphtheria toxoids (Verified Allergy, Unknown, 04/14/18) trimethoprim (Verified Allergy, Unknown, 04/14/18) Scheduled Amlodipine Besylate (Amlodipine Besylate), 1 TAB PO DAILY, (Reported) Aspirin (Aspir-Low), 1 TAB PO DAILY, (Reported) Benztropine Mesylate (Benztropine Mesylate), 1 TAB PO BID, (Reported) Esomeprazole Magnesium (Nexium), 1 CAP PO DAILY, (Reported) Fenofibrate Nanocrystallized (Fenofibrate), 1 TAB PO DAILY, (Reported) Gabapentin (Gabapentin), 1 TAB PO HS, (Reported) Haloperidol (Haloperidol), 1 TAB PO HS, (Reported) Levocetirizine Dihydrochloride (Levocetirizine Dihydrochloride), 1 TAB PO HS, (Reported) Levothyroxine Sodium (Levothyroxine Sodium), 1 TAB PO DAILY, (Reported) Losartan Potassium (Losartan Potassium), 1 TAB PO DAILY, (Reported) Mirtazapine (Mirtazapine), 1 TAB PO HS, (Reported) Ropinirole Hcl (Requip), 1 TAB PO HS, (Reported) Objective Vitals and I/O Vital Sign - Last 24 Hours 06/28/20 06/28/20 06/28/20 06/28/20 09:24 11:30 12:03 16:45 Temp 98.3 98.3 Pulse 90 91 113 Resp 18 18 B/P (MAP) 147/60 133/61 (85) 127/64 (85) Pulse Ox 100 97 O2 Delivery Room Air Room Air Room Air 06/28/20 06/29/20 06/29/20 06/29/20 20:00 00:00 02:32 04:05 Temp 98.2 98.5 98.8 Pulse 95 86 86 Resp 18 18 18 B/P (MAP) 130/70 (90) 118/51 (73) 108/52 (70) Pulse Ox 97 98 94 O2 Delivery Room Air Room Air Room Air Room Air 06/29/20 06/29/20 08:28 09:11 Pulse 86 B/P (MAP) 108/52 108/52 Intake and Output 06/29/20 07:00 Intake Total 222 ml Output Total 500 ml Balance -278 ml General: Alert, Oriented X3, Cooperative, No acute distress HEENT: Atraumatic, PERRLA, Mucous membr. moist/pink Neck: Supple Lungs: Clear to auscultation, Normal air movement Heart: Regular rate, Other Abdomen: Normal bowel sounds, Soft, No tenderness Extremities: No cyanosis, No edema, Normal pulses, Other (Left hip swelling. Dressing is CDI. No evidence of cellulitis or redness.Pedal pulses are present. Sensory is preserved.) Skin: No rashes Neuro: Normal gait, Normal speech, Strength at 5/5 X4 ext Psych/Mental Status: Mental status NL, Mood NL, Other All Results(Lab/Rad) Laboratory Tests Test 06/25/20 16:46 06/25/20 21:00 06/26/20 04:37 06/26/20 05:30 Bedside Glucose 117 189 142 Urine Collection Type VOID Urine Color YELLOW Urine Appearance CLOUDY Urine Bilirubin NEGATIVE MG/DL Urine Ketones NEGATIVE Urine Specific [place] 1.020 Urine pH 5.5 Urine Protein NEGATIVE Urine Urobilinogen 0.2 Urine Nitrate NEGATIVE Urine Leukocyte Esterase SMALL Urine Blood TRACE Urine RBC 0-2 RBC/HPF Urine WBC 10-25 WBC/HPF Urine Squamous Epithelial Cells FEW #/HPF Urine Bacteria MANY Urine Glucose NEGATIVE Test 06/26/20 09:15 Bedside Glucose 124 Current Medications Medications (Trade) Dose Ordered Sig/Reji Route PRN Reason Start Time Stop Time Status Last Admin Dose Admin Morphine Sulfate (Morphine Sulfate) 4 mg STAT STAT IV 06/25/20 10:07 06/25/20 10:09 DC 06/25/20 10:35 Sodium Chloride 1,000 ml @ 0 mls/hr Q0M ONCE IV 06/25/20 10:30 06/25/20 10:31 DC 06/25/20 10:35 Ondansetron HCl (Zofran) 4 mg STAT STAT IV 06/25/20 10:07 06/25/20 10:09 DC 06/25/20 10:39 Sodium Chloride 1,000 ml @ ud STK-MED ONCE .ROUTE 06/25/20 10:24 06/25/20 10:26 DC Ondansetron HCl (Zofran) 4 mg STK-MED ONCE .ROUTE 06/25/20 10:25 06/25/20 10:26 DC Morphine Sulfate (Morphine Sulfate) 4 mg STK-MED ONCE .ROUTE 06/25/20 10:25 06/25/20 10:27 DC Tramadol HCl (Ultram) 50 mg Q4HR PRN PO PAIN 1 - 3 06/25/20 13:00 07/25/20 12:59 06/25/20 22:29 Tramadol HCl (Ultram) 100 mg Q4HR PRN PO PAIN 4 - 6 06/25/20 13:00 07/25/20 12:59 Morphine Sulfate (Morphine Sulfate) 3 mg Q6HR PRN IV PAIN 7 - 10 06/25/20 13:00 06/25/20 16:33 DC Ondansetron HCl (Zofran) 4 mg Q4H PRN IV NAUSEA / VOMITING 06/25/20 13:00 07/25/20 12:59 Enoxaparin Sodium (Lovenox) 40 mg STAT STAT SQ 06/25/20 12:44 06/25/20 14:06 DC 06/25/20 14:43 Insulin Human Regular (Humulin R) ACHS SQ 06/25/20 17:30 07/25/20 17:29 Enoxaparin Sodium (Lovenox) 40 mg STK-MED ONCE SQ 06/25/20 14:10 06/25/20 14:12 DC Amlodipine Besylate (Norvasc) 5 mg DAILY PO 06/26/20 09:00 07/26/20 08:59 Aspirin (Aspirin Ec) 81 mg DAILY PO 06/26/20 09:00 07/26/20 08:59 Pantoprazole Sodium (Protonix) 40 mg DAILY PO 06/26/20 09:00 07/26/20 08:59 Fenofibrate (Tricor) 145 mg DAILY PO 06/26/20 09:00 07/26/20 08:59 Haloperidol (Haldol) 5 mg HS PO 06/25/20 21:00 07/25/20 20:59 06/25/20 21:00 Levothyroxine Sodium (Synthroid) 75 mcg ACB PO 06/26/20 06:30 07/26/20 06:29 Losartan Potassium (Cozaar) 50 mg DAILY PO 06/26/20 09:00 07/26/20 08:59 Benztropine Mesylate (Cogentin) 0.5 mg BID PO 06/25/20 21:00 07/25/20 20:59 06/25/20 21:02 Gabapentin (Neurontin) 600 mg HS PO 06/25/20 21:00 07/25/20 20:59 06/25/20 21:01 Loratadine (Claritin) 10 mg DAILY PO 06/26/20 09:00 07/26/20 08:59 Mirtazapine (Remeron) 30 mg HS PO 06/25/20 21:00 07/25/20 20:59 06/25/20 20:59 Ropinirole HCl (Requip) 0.5 mg HS PO 06/25/20 21:00 07/25/20 20:59 06/25/20 21:02 Morphine Sulfate (Morphine Sulfate) 3 mg Q6HR PRN IV PAIN 7 - 10 06/25/20 16:33 07/25/20 12:59 Ropinirole HCl (Requip) 1 mg STK-MED ONCE .ROUTE 06/25/20 20:19 06/25/20 20:21 DC Benztropine Mesylate (Cogentin) 1 mg STK-MED ONCE .ROUTE 06/25/20 20:21 06/25/20 20:22 DC Haloperidol (Haldol) 5 mg STK-MED ONCE .ROUTE 06/25/20 20:21 06/25/20 20:23 DC Nicotine (Nicotine 21mg Patch) 1 each DAILY TD 06/25/20 21:00 07/25/20 20:59 06/25/20 22:28 Nicotine (Nicotine 21mg Patch) 1 each STK-MED ONCE TD 06/25/20 21:45 06/25/20 21:48 DC Sodium Chloride 1,000 ml @ ud STK-MED ONCE .ROUTE 06/26/20 08:42 06/26/20 08:44 DC Sodium Chloride 1,000 ml @ 100 mls/hr Q10H IV 06/26/20 09:00 07/26/20 08:59 Hydromorphone HCl (Dilaudid) 0.5 mg OT ONCE IV 06/26/20 11:00 06/26/20 12:25 DC 06/26/20 11:18 Sodium Chloride 100 ml @ ud STK-MED ONCE IV 06/26/20 12:15 06/26/20 12:17 DC Cefazolin Sodium (Ancef) 1 gm STK-MED ONCE .ROUTE 06/26/20 12:15 06/26/20 12:18 DC Sodium Chloride (Sodium Chloride Irr Bottle) 1,000 ml STK-MED ONCE IR 06/26/20 12:21 06/26/20 12:23 DC Sodium Chloride 1,000 ml @ ud STK-MED ONCE .ROUTE 06/26/20 13:01 06/26/20 13:03 DC Bupivacaine HCl (Sensorcaine 0.5% Vial) 5 mg STK-MED ONCE .ROUTE 06/26/20 13:01 06/26/20 13:03 DC Acetaminophen 100 ml @ ud STK-MED ONCE IV 06/26/20 13:01 06/26/20 13:03 DC Lidocaine HCl (Lidocaine 2% Vial) 500 mg STK-MED ONCE .ROUTE 06/26/20 13:02 06/26/20 13:04 DC Tranexamic Acid (Tranexamic Acid) 1,000 mg STK-MED ONCE .ROUTE 06/26/20 13:02 06/26/20 13:04 DC Ondansetron HCl (Zofran) 4 mg STK-MED ONCE .ROUTE 06/26/20 13:02 06/26/20 13:04 DC Fentanyl Citrate (Sublimaze) 50 mcg STK-MED ONCE .ROUTE 06/26/20 13:03 06/26/20 13:05 DC Propofol (Diprivan) 200 mg STK-MED ONCE IV 06/26/20 13:03 06/26/20 13:05 DC Sterile Water (Water) 1,000 ml STK-MED ONCE .ROUTE 06/26/20 13:57 06/26/20 13:59 DC Course Sepsis Screening Results: Posi: NEGATIVE Sepsis Qualifier/Stage: NO DEFINITE RISK Duration or Total Time Spent w: 16M Vitals & review Data Vital Sign - Last 24 Hours 06/25/20 06/25/20 06/25/20 06/26/20 16:13 20:15 22:55 00:15 Temp 98.1 98.5 98.3 Pulse 74 72 86 Resp 20 20 B/P (MAP) 132/60 (84) 103/46 (65) Pulse Ox 97 95 O2 Delivery Room Air Room Air Room Air 06/26/20 06/26/20 06/26/20 04:00 07:26 07:30 Temp 98.1 97.7 Pulse 80 74 Resp 18 18 B/P (MAP) 149/47 (81) 143/57 (85) Pulse Ox 97 93 O2 Delivery Room Air Room Air Intake and Output 06/26/20 06:59 Intake Total 850 ml Output Total 1100 ml Balance -250 ml Laboratory Tests Test 06/25/20 10:20 06/25/20 10:29 06/25/20 16:46 06/25/20 21:00 White Blood Count 20.0 10^3/uL Red Blood Count 4.20 10^6/uL Hemoglobin 13.1 g/dL Hematocrit 37.4 % Mean Corpuscular Volume 89.0 fL Mean Corpuscular Hemoglobin 31.2 pg Mean Corpuscular Hemoglobin Concent 35.0 g/dL Red Cell Distribution Width 13.1 % Platelet Count 331 10^3/uL Mean Platelet Volume 9.8 fL Neutrophils (%) (Auto) 88.1 % Lymphocytes (%) (Auto) 4.0 % Monocytes (%) (Auto) 7.6 % Neutrophils # (Auto) 17.6 10^3/uL Lymphocytes # (Auto) 0.79 10^3/uL1 Monocytes # (Auto) 1.5 10^3/uL Absolute Immature Granulocyte (auto 0.04 10^3 u/L Absolute Eosinophils (auto) 0.0 10^3/uL Immature Granulocytes % 0.20 % Eosinophils % 0.0 % Basophils % 0.1 % Basophils # 0.0 10^3/uL Prothrombin Time 10.6 SEC Prothrombin Time INR (Non-Therap) 1.0 Activated Partial Thromboplast Time 26.5 SEC Sodium Level 128 mmol/L Potassium Level 3.9 mmol/L Chloride Level 93.0 mmol/L Carbon Dioxide Level 23.1 mmol/L Anion Gap 15.8 Blood Urea Nitrogen 8 mg/dL Creatinine 0.96 mg/dL Estimated GFR () 68.4 Est GFR (CKD-EPI)(Non-Afr Bulgarian) 56.5 BUN/Creatinine Ratio 8.0 Glucose Level 181 mg/dL Calcium Level 8.9 mg/dL Total Bilirubin 0.3 mg/dL Aspartate Amino Transf (AST/SGOT) 21 U/L Alanine Aminotransferase (ALT/SGPT) 13 U/L Alkaline Phosphatase 111 U/L Total Creatine Kinase 253 U/L Creatine Kinase MB 2.8 ng/mL Troponin I < 0.02 ng/mL Pro-B-Type Natriuretic Peptide 76 pg/mL Total Protein 6.7 g/dL Albumin 3.4 g/dL Globulin 3.3 Albumin/Globulin Ratio 1.030 Differential Total Cells Counted 100 #CELLS Segmented Neutrophils 86 % Band Neutrophils 1 % Lymphocytes 5 % Monocytes 8 % Platelet Estimate ADEQUATE Platelet Morphology NORMAL Blood Morphology Comment NORMAL MORPHOLOGY Bedside Glucose 117 189 Test 06/26/20 04:37 06/26/20 05:30 06/26/20 09:15 Bedside Glucose 142 124 Urine Collection Type VOID Urine Color YELLOW Urine Appearance CLOUDY Urine Bilirubin NEGATIVE MG/DL Urine Ketones NEGATIVE Urine Specific [place] 1.020 Urine pH 5.5 Urine Protein NEGATIVE Urine Urobilinogen 0.2 Urine Nitrate NEGATIVE Urine Leukocyte Esterase SMALL Urine Blood TRACE Urine RBC 0-2 RBC/HPF Urine WBC 10-25 WBC/HPF Urine Squamous Epithelial Cells FEW #/HPF Urine Bacteria MANY Urine Glucose NEGATIVE Current Medications Medications (Trade) Dose Ordered Sig/Reji PRN Reason Start Time Stop Time Status Last Admin Amlodipine Besylate (Norvasc) 5 mg DAILY 06/26/20 09:00 07/26/20 08:59 Aspirin (Aspirin Ec) 81 mg DAILY 06/26/20 09:00 07/26/20 08:59 Benztropine Mesylate (Cogentin) 0.5 mg BID 06/25/20 21:00 07/25/20 20:59 06/25/20 21:02 Fenofibrate (Tricor) 145 mg DAILY 06/26/20 09:00 07/26/20 08:59 Gabapentin (Neurontin) 600 mg HS 06/25/20 21:00 07/25/20 20:59 06/25/20 21:01 Haloperidol (Haldol) 5 mg HS 06/25/20 21:00 07/25/20 20:59 06/25/20 21:00 Insulin Human Regular (Humulin R) ACHS 06/25/20 17:30 07/25/20 17:29 Levothyroxine Sodium (Synthroid) 75 mcg ACB 06/26/20 06:30 07/26/20 06:29 Loratadine (Claritin) 10 mg DAILY 06/26/20 09:00 07/26/20 08:59 Losartan Potassium (Cozaar) 50 mg DAILY 06/26/20 09:00 07/26/20 08:59 Mirtazapine (Remeron) 30 mg HS 06/25/20 21:00 07/25/20 20:59 06/25/20 20:59 Morphine Sulfate (Morphine Sulfate) 3 mg Q6HR PRN PAIN 7 - 10 06/25/20 16:33 07/25/20 12:59 Nicotine (Nicotine 21mg Patch) 1 each DAILY 06/25/20 21:00 07/25/20 20:59 06/25/20 22:28 Ondansetron HCl (Zofran) 4 mg Q4H PRN NAUSEA / VOMITING 06/25/20 13:00 07/25/20 12:59 Pantoprazole Sodium (Protonix) 40 mg DAILY 06/26/20 09:00 07/26/20 08:59 Ropinirole HCl (Requip) 0.5 mg HS 06/25/20 21:00 07/25/20 20:59 06/25/20 21:02 Sodium Chloride 1,000 ml @ 100 mls/hr Q10H 06/26/20 09:00 07/26/20 08:59 Tramadol HCl (Ultram) 50 mg Q4HR PRN PAIN 1 - 3 06/25/20 13:00 07/25/20 12:59 06/25/20 22:29 Tramadol HCl (Ultram) 100 mg Q4HR PRN PAIN 4 - 6 06/25/20 13:00 07/25/20 12:59 LEVEL 1 SEPSIS INFECTION CRITE: ABX Therapy LEVEL 2-SIRS (LIST ALL THAT AP: None/Not assessed Cardiovascular Evidence: Not Assessed or None Hematologic Evidence: None/Not assessed Hepatic Evidence: None/Not assessed Metabolic Evidence: None/Not assessed Neurological Evidence: None/Not assessed Respiratory Evidence: None/Not assessed Renal Evidence: None/Not assessed O2 Sat by Pulse Oximetry: 94 Oxygen Flow Rate: 10 Assessment/Plan Assessment/Plan Problems: (1) Fracture, hip Status: Acute ICD Code: S72.009A - Fracture of unspecified part of neck of unspecified femur, initial encounter for closed fracture SNOMED: 639325490 (2) Anemia following surgery ICD Code: D64.9 - Anemia, unspecified SNOMED: 535560449, [id number] Plan Left Fracture, hip Patient is on the POD day 3 for left hip surgery. monitor dressing monitor pain Anemia- Hgb 7.8 today. No s/s of drainage Pending CBC for today at 1600. Expected blood loss following surgery DVT prophylaxis- Xarelto 10mg PO daily while at the hospital. We will continue aspirin as an outpatient PT/OT eval and treat- walker, TTWB LLE, safety precautions plan: may discharge home with home health if ok with hospitalist. would like her to stay until next cbc is repeated. Problem Qualifiers (1) Fracture, hip: Laterality: left JAYDA ZAMORA NP Jun 29, 2020 09:25
[2020-06-29 11:45] VITALS: BP 119/56
[2020-06-29] MEDS: ULTRAM PO PRN ×2 (13:34→18:04)
--- NOTE | 2020-06-29 15:16 | PRM.PN ---
Subjective Subjective Date: Jun 29, 2020 Time: 10:00 Subjective Patient denies any complaint. She is tolerating oral intake. There is no bleeding from the wound on the left hipWound VAC in place. She was transfused with 2 units PRBC T- 2. Pending CBC as hemoglobin was 7.8. Patient is pending to be discharged home home health [facility] in a.m.. They refused to go to a rehab. Patient History: Patient reports no known family medical history. VTE VTE Risk Total Score: 2 VTE Risk Score VTE Risk: Score 0-1 = Low Risk (Aggressive mobilization; early ambulation; no VTE prophylaxis required) Score 2: Moderate Risk (Intermittent/Pneumatic Compression Device OR Lovenox/Heparin/Coumadin) Score 3-4: High Risk (Intermittent/Pneumatic Compression Device AND Lovenox/Heparin/Coumadin) Score > or =5: Highest Risk (Intermittent/Pneumatic Compression Device AND Lovenox/Heparin/Coumadin) Antico:Hep/LMWH/Coum/Xarelto: Yes Mechanical device ordered: Yes Review of Systems Constitutional: No: Fever, Chills, Sweats, Weakness, Malaise, Other Eyes: No: Pain, Vision change, Conjunctivae inflammation, Eyelid inflammation, Other, Redness ENT: No: Ear pain, Ear discharge, Nose pain, Nose discharge, Nose congestion, Mouth pain, Mouth swelling, Throat pain, Throat swelling, Other Respiratory: No: Cough, Dry, Shortness of breath, SOB with excertion, Wheezing, Hemoptysis, Pleuritic Pain, Sputum, Wheezing, Other Cardiovascular: No: Chest Pain, Palpitations, Orthopnea, Paroxysmal Noc. Dyspnea, Edema, Lt Headedness, Other Gastrointestinal: No: Nausea, Vomiting, Abdominal Pain, Diarrhea, Constipation, Melena, Hematochezia, Other Genitourinary: No Dysuria, No Frequency, No Incontinence, No Hematuria, No Retention, No Other Musculoskeletal: leg pain (left leg); No: other, neck pain, shoulder pain, arm pain, back pain, hand pain, foot pain Skin: Rash Neurological: Weakness (Generalized weakness. Patient use a walker) Allergies: Coded Allergies: sulfamethoxazole (Verified Allergy, Unknown, 04/14/18) tetanus and diphtheria toxoids (Verified Allergy, Unknown, 04/14/18) trimethoprim (Verified Allergy, Unknown, 04/14/18) Scheduled Amlodipine Besylate (Amlodipine Besylate), 1 TAB PO DAILY, (Reported) Aspirin (Aspir-Low), 1 TAB PO DAILY, (Reported) Benztropine Mesylate (Benztropine Mesylate), 1 TAB PO BID, (Reported) Esomeprazole Magnesium (Nexium), 1 CAP PO DAILY, (Reported) Fenofibrate Nanocrystallized (Fenofibrate), 1 TAB PO DAILY, (Reported) Gabapentin (Gabapentin), 1 TAB PO HS, (Reported) Haloperidol (Haloperidol), 1 TAB PO HS, (Reported) Levocetirizine Dihydrochloride (Levocetirizine Dihydrochloride), 1 TAB PO HS, (Reported) Levothyroxine Sodium (Levothyroxine Sodium), 1 TAB PO DAILY, (Reported) Losartan Potassium (Losartan Potassium), 1 TAB PO DAILY, (Reported) Mirtazapine (Mirtazapine), 1 TAB PO HS, (Reported) Ropinirole Hcl (Requip), 1 TAB PO HS, (Reported) Objective Vitals and I/O Vital Sign - Last 24 Hours 06/28/20 06/28/20 06/29/20 06/29/20 16:45 20:00 00:00 02:32 Temp 98.3 98.2 98.5 Pulse 113 95 86 Resp 18 18 18 B/P (MAP) 127/64 (85) 130/70 (90) 118/51 (73) Pulse Ox 97 97 98 O2 Delivery Room Air Room Air Room Air Room Air 06/29/20 06/29/20 06/29/20 06/29/20 04:05 07:33 08:28 09:11 Temp 98.8 98.4 Pulse 86 70 86 Resp 18 18 B/P (MAP) 108/52 (70) 119/56 (77) 108/52 108/52 Pulse Ox 94 99 O2 Delivery Room Air 06/29/20 11:45 Temp 98.4 Pulse 100 Resp 18 B/P (MAP) 119/56 (77) Pulse Ox 99 O2 Delivery Room Air Intake and Output 06/29/20 07:00 Intake Total 222 ml Output Total 500 ml Balance -278 ml General: Alert, Oriented X3, Cooperative, No acute distress HEENT: Atraumatic, PERRLA, Mucous membr. moist/pink Neck: Supple, No JVD Lungs: Clear to auscultation, Normal air movement Heart: Regular rate, Other Abdomen: Normal bowel sounds, Soft, No tenderness Extremities: No cyanosis, No edema, Normal pulses, Other (Left hip swelling. Dressing is CDI. No evidence of cellulitis or redness.Pedal pulses are present. Sensory is preserved.) Skin: No rashes Neuro: Normal gait, Normal speech, Strength at 5/5 X4 ext Psych/Mental Status: Mental status NL, Mood NL, Other All Results(Lab/Rad) Laboratory Tests Test 06/25/20 16:46 06/25/20 21:00 06/26/20 04:37 06/26/20 05:30 Bedside Glucose 117 189 142 Urine Collection Type VOID Urine Color YELLOW Urine Appearance CLOUDY Urine Bilirubin NEGATIVE MG/DL Urine Ketones NEGATIVE Urine Specific [place] 1.020 Urine pH 5.5 Urine Protein NEGATIVE Urine Urobilinogen 0.2 Urine Nitrate NEGATIVE Urine Leukocyte Esterase SMALL Urine Blood TRACE Urine RBC 0-2 RBC/HPF Urine WBC 10-25 WBC/HPF Urine Squamous Epithelial Cells FEW #/HPF Urine Bacteria MANY Urine Glucose NEGATIVE Test 06/26/20 09:15 Bedside Glucose 124 Current Medications Medications (Trade) Dose Ordered Sig/Reji Route PRN Reason Start Time Stop Time Status Last Admin Dose Admin Morphine Sulfate (Morphine Sulfate) 4 mg STAT STAT IV 06/25/20 10:07 06/25/20 10:09 DC 06/25/20 10:35 Sodium Chloride 1,000 ml @ 0 mls/hr Q0M ONCE IV 06/25/20 10:30 06/25/20 10:31 DC 06/25/20 10:35 Ondansetron HCl (Zofran) 4 mg STAT STAT IV 06/25/20 10:07 06/25/20 10:09 DC 06/25/20 10:39 Sodium Chloride 1,000 ml @ ud STK-MED ONCE .ROUTE 06/25/20 10:24 06/25/20 10:26 DC Ondansetron HCl (Zofran) 4 mg STK-MED ONCE .ROUTE 06/25/20 10:25 06/25/20 10:26 DC Morphine Sulfate (Morphine Sulfate) 4 mg STK-MED ONCE .ROUTE 06/25/20 10:25 06/25/20 10:27 DC Tramadol HCl (Ultram) 50 mg Q4HR PRN PO PAIN 1 - 3 06/25/20 13:00 07/25/20 12:59 06/25/20 22:29 Tramadol HCl (Ultram) 100 mg Q4HR PRN PO PAIN 4 - 6 06/25/20 13:00 07/25/20 12:59 Morphine Sulfate (Morphine Sulfate) 3 mg Q6HR PRN IV PAIN 7 - 10 06/25/20 13:00 06/25/20 16:33 DC Ondansetron HCl (Zofran) 4 mg Q4H PRN IV NAUSEA / VOMITING 06/25/20 13:00 07/25/20 12:59 Enoxaparin Sodium (Lovenox) 40 mg STAT STAT SQ 06/25/20 12:44 06/25/20 14:06 DC 06/25/20 14:43 Insulin Human Regular (Humulin R) ACHS SQ 06/25/20 17:30 07/25/20 17:29 Enoxaparin Sodium (Lovenox) 40 mg STK-MED ONCE SQ 06/25/20 14:10 06/25/20 14:12 DC Amlodipine Besylate (Norvasc) 5 mg DAILY PO 06/26/20 09:00 07/26/20 08:59 Aspirin (Aspirin Ec) 81 mg DAILY PO 06/26/20 09:00 07/26/20 08:59 Pantoprazole Sodium (Protonix) 40 mg DAILY PO 06/26/20 09:00 07/26/20 08:59 Fenofibrate (Tricor) 145 mg DAILY PO 06/26/20 09:00 07/26/20 08:59 Haloperidol (Haldol) 5 mg HS PO 06/25/20 21:00 07/25/20 20:59 06/25/20 21:00 Levothyroxine Sodium (Synthroid) 75 mcg ACB PO 06/26/20 06:30 07/26/20 06:29 Losartan Potassium (Cozaar) 50 mg DAILY PO 06/26/20 09:00 07/26/20 08:59 Benztropine Mesylate (Cogentin) 0.5 mg BID PO 06/25/20 21:00 07/25/20 20:59 06/25/20 21:02 Gabapentin (Neurontin) 600 mg HS PO 06/25/20 21:00 07/25/20 20:59 06/25/20 21:01 Loratadine (Claritin) 10 mg DAILY PO 06/26/20 09:00 07/26/20 08:59 Mirtazapine (Remeron) 30 mg HS PO 06/25/20 21:00 07/25/20 20:59 06/25/20 20:59 Ropinirole HCl (Requip) 0.5 mg HS PO 06/25/20 21:00 07/25/20 20:59 06/25/20 21:02 Morphine Sulfate (Morphine Sulfate) 3 mg Q6HR PRN IV PAIN 7 - 10 06/25/20 16:33 07/25/20 12:59 Ropinirole HCl (Requip) 1 mg STK-MED ONCE .ROUTE 06/25/20 20:19 06/25/20 20:21 DC Benztropine Mesylate (Cogentin) 1 mg STK-MED ONCE .ROUTE 06/25/20 20:21 06/25/20 20:22 DC Haloperidol (Haldol) 5 mg STK-MED ONCE .ROUTE 06/25/20 20:21 06/25/20 20:23 DC Nicotine (Nicotine 21mg Patch) 1 each DAILY TD 06/25/20 21:00 07/25/20 20:59 06/25/20 22:28 Nicotine (Nicotine 21mg Patch) 1 each STK-MED ONCE TD 06/25/20 21:45 06/25/20 21:48 DC Sodium Chloride 1,000 ml @ ud STK-MED ONCE .ROUTE 06/26/20 08:42 06/26/20 08:44 DC Sodium Chloride 1,000 ml @ 100 mls/hr Q10H IV 06/26/20 09:00 07/26/20 08:59 Hydromorphone HCl (Dilaudid) 0.5 mg OT ONCE IV 06/26/20 11:00 06/26/20 12:25 DC 06/26/20 11:18 Sodium Chloride 100 ml @ ud STK-MED ONCE IV 06/26/20 12:15 06/26/20 12:17 DC Cefazolin Sodium (Ancef) 1 gm STK-MED ONCE .ROUTE 06/26/20 12:15 06/26/20 12:18 DC Sodium Chloride (Sodium Chloride Irr Bottle) 1,000 ml STK-MED ONCE IR 06/26/20 12:21 06/26/20 12:23 DC Sodium Chloride 1,000 ml @ ud STK-MED ONCE .ROUTE 06/26/20 13:01 06/26/20 13:03 DC Bupivacaine HCl (Sensorcaine 0.5% Vial) 5 mg STK-MED ONCE .ROUTE 06/26/20 13:01 06/26/20 13:03 DC Acetaminophen 100 ml @ ud STK-MED ONCE IV 06/26/20 13:01 06/26/20 13:03 DC Lidocaine HCl (Lidocaine 2% Vial) 500 mg STK-MED ONCE .ROUTE 06/26/20 13:02 06/26/20 13:04 DC Tranexamic Acid (Tranexamic Acid) 1,000 mg STK-MED ONCE .ROUTE 06/26/20 13:02 06/26/20 13:04 DC Ondansetron HCl (Zofran) 4 mg STK-MED ONCE .ROUTE 06/26/20 13:02 06/26/20 13:04 DC Fentanyl Citrate (Sublimaze) 50 mcg STK-MED ONCE .ROUTE 06/26/20 13:03 06/26/20 13:05 DC Propofol (Diprivan) 200 mg STK-MED ONCE IV 06/26/20 13:03 06/26/20 13:05 DC Sterile Water (Water) 1,000 ml STK-MED ONCE .ROUTE 06/26/20 13:57 06/26/20 13:59 DC Course Sepsis Screening Results: Posi: NEGATIVE Sepsis Qualifier/Stage: NO DEFINITE RISK Duration or Total Time Spent w: 16M Vitals & review Data Vital Sign - Last 24 Hours 06/25/20 06/25/20 06/25/20 06/26/20 16:13 20:15 22:55 00:15 Temp 98.1 98.5 98.3 Pulse 74 72 86 Resp 20 20 B/P (MAP) 132/60 (84) 103/46 (65) Pulse Ox 97 95 O2 Delivery Room Air Room Air Room Air 06/26/20 06/26/20 06/26/20 04:00 07:26 07:30 Temp 98.1 97.7 Pulse 80 74 Resp 18 18 B/P (MAP) 149/47 (81) 143/57 (85) Pulse Ox 97 93 O2 Delivery Room Air Room Air Intake and Output 06/26/20 06:59 Intake Total 850 ml Output Total 1100 ml Balance -250 ml Laboratory Tests Test 06/25/20 10:20 06/25/20 10:29 06/25/20 16:46 06/25/20 21:00 White Blood Count 20.0 10^3/uL Red Blood Count 4.20 10^6/uL Hemoglobin 13.1 g/dL Hematocrit 37.4 % Mean Corpuscular Volume 89.0 fL Mean Corpuscular Hemoglobin 31.2 pg Mean Corpuscular Hemoglobin Concent 35.0 g/dL Red Cell Distribution Width 13.1 % Platelet Count 331 10^3/uL Mean Platelet Volume 9.8 fL Neutrophils (%) (Auto) 88.1 % Lymphocytes (%) (Auto) 4.0 % Monocytes (%) (Auto) 7.6 % Neutrophils # (Auto) 17.6 10^3/uL Lymphocytes # (Auto) 0.79 10^3/uL1 Monocytes # (Auto) 1.5 10^3/uL Absolute Immature Granulocyte (auto 0.04 10^3 u/L Absolute Eosinophils (auto) 0.0 10^3/uL Immature Granulocytes % 0.20 % Eosinophils % 0.0 % Basophils % 0.1 % Basophils # 0.0 10^3/uL Prothrombin Time 10.6 SEC Prothrombin Time INR (Non-Therap) 1.0 Activated Partial Thromboplast Time 26.5 SEC Sodium Level 128 mmol/L Potassium Level 3.9 mmol/L Chloride Level 93.0 mmol/L Carbon Dioxide Level 23.1 mmol/L Anion Gap 15.8 Blood Urea Nitrogen 8 mg/dL Creatinine 0.96 mg/dL Estimated GFR () 68.4 Est GFR (CKD-EPI)(Non-Afr Faroese) 56.5 BUN/Creatinine Ratio 8.0 Glucose Level 181 mg/dL Calcium Level 8.9 mg/dL Total Bilirubin 0.3 mg/dL Aspartate Amino Transf (AST/SGOT) 21 U/L Alanine Aminotransferase (ALT/SGPT) 13 U/L Alkaline Phosphatase 111 U/L Total Creatine Kinase 253 U/L Creatine Kinase MB 2.8 ng/mL Troponin I < 0.02 ng/mL Pro-B-Type Natriuretic Peptide 76 pg/mL Total Protein 6.7 g/dL Albumin 3.4 g/dL Globulin 3.3 Albumin/Globulin Ratio 1.030 Differential Total Cells Counted 100 #CELLS Segmented Neutrophils 86 % Band Neutrophils 1 % Lymphocytes 5 % Monocytes 8 % Platelet Estimate ADEQUATE Platelet Morphology NORMAL Blood Morphology Comment NORMAL MORPHOLOGY Bedside Glucose 117 189 Test 06/26/20 04:37 06/26/20 05:30 06/26/20 09:15 Bedside Glucose 142 124 Urine Collection Type VOID Urine Color YELLOW Urine Appearance CLOUDY Urine Bilirubin NEGATIVE MG/DL Urine Ketones NEGATIVE Urine Specific [place] 1.020 Urine pH 5.5 Urine Protein NEGATIVE Urine Urobilinogen 0.2 Urine Nitrate NEGATIVE Urine Leukocyte Esterase SMALL Urine Blood TRACE Urine RBC 0-2 RBC/HPF Urine WBC 10-25 WBC/HPF Urine Squamous Epithelial Cells FEW #/HPF Urine Bacteria MANY Urine Glucose NEGATIVE Current Medications Medications (Trade) Dose Ordered Sig/Reji PRN Reason Start Time Stop Time Status Last Admin Amlodipine Besylate (Norvasc) 5 mg DAILY 06/26/20 09:00 07/26/20 08:59 Aspirin (Aspirin Ec) 81 mg DAILY 06/26/20 09:00 07/26/20 08:59 Benztropine Mesylate (Cogentin) 0.5 mg BID 06/25/20 21:00 07/25/20 20:59 06/25/20 21:02 Fenofibrate (Tricor) 145 mg DAILY 06/26/20 09:00 07/26/20 08:59 Gabapentin (Neurontin) 600 mg HS 06/25/20 21:00 07/25/20 20:59 06/25/20 21:01 Haloperidol (Haldol) 5 mg HS 06/25/20 21:00 07/25/20 20:59 06/25/20 21:00 Insulin Human Regular (Humulin R) ACHS 06/25/20 17:30 07/25/20 17:29 Levothyroxine Sodium (Synthroid) 75 mcg ACB 06/26/20 06:30 07/26/20 06:29 Loratadine (Claritin) 10 mg DAILY 06/26/20 09:00 07/26/20 08:59 Losartan Potassium (Cozaar) 50 mg DAILY 06/26/20 09:00 07/26/20 08:59 Mirtazapine (Remeron) 30 mg HS 06/25/20 21:00 07/25/20 20:59 06/25/20 20:59 Morphine Sulfate (Morphine Sulfate) 3 mg Q6HR PRN PAIN 7 - 10 06/25/20 16:33 07/25/20 12:59 Nicotine (Nicotine 21mg Patch) 1 each DAILY 06/25/20 21:00 07/25/20 20:59 06/25/20 22:28 Ondansetron HCl (Zofran) 4 mg Q4H PRN NAUSEA / VOMITING 06/25/20 13:00 07/25/20 12:59 Pantoprazole Sodium (Protonix) 40 mg DAILY 06/26/20 09:00 07/26/20 08:59 Ropinirole HCl (Requip) 0.5 mg HS 06/25/20 21:00 07/25/20 20:59 06/25/20 21:02 Sodium Chloride 1,000 ml @ 100 mls/hr Q10H 06/26/20 09:00 07/26/20 08:59 Tramadol HCl (Ultram) 50 mg Q4HR PRN PAIN 1 - 3 06/25/20 13:00 07/25/20 12:59 06/25/20 22:29 Tramadol HCl (Ultram) 100 mg Q4HR PRN PAIN 4 - 6 06/25/20 13:00 07/25/20 12:59 LEVEL 1 SEPSIS INFECTION CRITE: ABX Therapy LEVEL 2-SIRS (LIST ALL THAT AP: None/Not assessed Cardiovascular Evidence: Not Assessed or None Hematologic Evidence: None/Not assessed Hepatic Evidence: None/Not assessed Metabolic Evidence: None/Not assessed Neurological Evidence: None/Not assessed Respiratory Evidence: None/Not assessed Renal Evidence: None/Not assessed O2 Sat by Pulse Oximetry: 99 Oxygen Flow Rate: 10 Assessment/Plan Assessment/Plan Assessment/Plan No acute distress, vital signs stable, hemoglobin down to 7.8 patient was transfused with 2 units of PRBC status post left hip surgery wound VAC in place clean dry and intact. No visible bleeding. Will recheck CBC at 1600 likely discharge in a.m. if no need for further transfusion to correct anemia. Patient will be going home with home health with family 1) COPD (chronic obstructive pulmonary disease) Patient appears stable. There is no respiratory distress. Continue nebulizers (2) Diabetes 1.5, managed as type 2 Patient is tolerating the diet and blood sugars appear stable. Resume home medications and continue SSI while in the hospital (3) Fracture, hip Patient is on the POD day 3 for left hip surgery. monitor dressing wound vac in place cdi monitor pain Anemia- Hgb 7.8 today. Pending CBC for today at 1600. Expected blood loss following surgery DVT prophylaxis- Xarelto 10mg PO daily while at the hospital. We will continue aspirin as an outpatient PT/OT eval and treat- walker, TTWB LLE, safety precautions Patient is post transfusion of 2 units packed RBC. Pain appears controlled. Patient preferred to go home with a daughter and home health care for PT OT. They refused to go to rehab. (4) Paranoid schizophrenia Patient appears stable. Resume the home medications for schizophrenia including benztropine and Haldol (5). Acute anemia from blood loss. cbc pending hgb 7.8 KRISTEN MARQUEZ NP Jun 29, 2020 15:16
[2020-06-29 15:33] LABS: MEAN CORP HGB 32.1 pg (26-34); RED CELL DISTRIBUTION WIDTH 14.3 % (11.5-14.5)
[2020-06-29 16:45] VITALS: BP 141/57
[2020-06-29] MEDS: REQUIP PO SCH (20:39)
[2020-06-29] MEDS: HALDOL PO SCH (20:39)
[2020-06-29] MEDS: NEURONTIN PO SCH (20:39)
[2020-06-29] MEDS: NICOTINE 21MG PATCH TD SCH (20:40)
[2020-06-29] MEDS: REMERON PO SCH (20:40)
[2020-06-29 22:28] VITALS: BP 123/57
[2020-06-30 01:17] VITALS: BP 127/61
[2020-06-30 05:52] VITALS: BP 128/60
[2020-06-30 05:55] LABS: MEAN CORP HGB 32.3 pg (26-34); RED CELL DISTRIBUTION WIDTH 14.1 % (11.5-14.5)
[2020-06-30] MEDS: NS 1000ML 1,000 ML IV SCH (06:25)
[2020-06-30] MEDS: SYNTHROID PO SCH ×2 (06:30→09:00)
[2020-06-30 06:40] LABS: CARBON DIOXIDE 24.8 mmol/L (20.0-32)
[2020-06-30] MEDS: HUMULIN R SQ SCH ×2 (07:30→11:30)
[2020-06-30 08:21] VITALS: BP 144/59
[2020-06-30] MEDS: COGENTIN PO SCH (08:59)
[2020-06-30] MEDS: COLACE PO SCH (08:59)
[2020-06-30] MEDS: ASPIRIN EC PO SCH (08:59)
--- NOTE | 2020-06-30 08:59 | PRM.PN ---
Subjective Subjective Date: Jun 30, 2020 Time: 08:50 Subjective patient sitting in bed, appetite good VSS labs reviewed; stable hgb 8.1 today left hip prevenia intact pain controlled to left hip with pain medications Patient History: Patient reports no known family medical history. VTE VTE Risk Total Score: 2 VTE Risk Score VTE Risk: Score 0-1 = Low Risk (Aggressive mobilization; early ambulation; no VTE prophylaxis required) Score 2: Moderate Risk (Intermittent/Pneumatic Compression Device OR Lovenox/Heparin/Coumadin) Score 3-4: High Risk (Intermittent/Pneumatic Compression Device AND Lovenox/Heparin/Coumadin) Score > or =5: Highest Risk (Intermittent/Pneumatic Compression Device AND Lovenox/Heparin/Coumadin) Antico:Hep/LMWH/Coum/Xarelto: Yes Mechanical device ordered: Yes Review of Systems Constitutional: No: Fever, Chills, Sweats, Weakness, Malaise, Other Eyes: No: Pain, Vision change, Conjunctivae inflammation, Eyelid inflammation, Other, Redness ENT: No: Ear pain, Ear discharge, Nose pain, Nose discharge, Nose congestion, Mouth pain, Mouth swelling, Throat pain, Throat swelling, Other Respiratory: No: Cough, Dry, Shortness of breath, SOB with excertion, Wheezing, Hemoptysis, Pleuritic Pain, Sputum, Wheezing, Other Cardiovascular: No: Chest Pain, Palpitations, Orthopnea, Paroxysmal Noc. Dyspnea, Edema, Lt Headedness, Other Gastrointestinal: No: Nausea, Vomiting, Abdominal Pain, Diarrhea, Constipation, Melena, Hematochezia, Other Genitourinary: No Dysuria, No Frequency, No Incontinence, No Hematuria, No Retention, No Other Musculoskeletal: leg pain (left leg); No: other, neck pain, shoulder pain, arm pain, back pain, hand pain, foot pain Skin: Rash Neurological: Weakness (Generalized weakness. Patient use a walker) Allergies: Coded Allergies: sulfamethoxazole (Verified Allergy, Unknown, 04/14/18) tetanus and diphtheria toxoids (Verified Allergy, Unknown, 04/14/18) trimethoprim (Verified Allergy, Unknown, 04/14/18) Scheduled Amlodipine Besylate (Amlodipine Besylate), 1 TAB PO DAILY, (Reported) Aspirin (Aspir-Low), 1 TAB PO DAILY, (Reported) Benztropine Mesylate (Benztropine Mesylate), 1 TAB PO BID, (Reported) Esomeprazole Magnesium (Nexium), 1 CAP PO DAILY, (Reported) Fenofibrate Nanocrystallized (Fenofibrate), 1 TAB PO DAILY, (Reported) Gabapentin (Gabapentin), 1 TAB PO HS, (Reported) Haloperidol (Haloperidol), 1 TAB PO HS, (Reported) Levocetirizine Dihydrochloride (Levocetirizine Dihydrochloride), 1 TAB PO HS, (Reported) Levothyroxine Sodium (Levothyroxine Sodium), 1 TAB PO DAILY, (Reported) Losartan Potassium (Losartan Potassium), 1 TAB PO DAILY, (Reported) Mirtazapine (Mirtazapine), 1 TAB PO HS, (Reported) Ropinirole Hcl (Requip), 1 TAB PO HS, (Reported) Objective Vitals and I/O Vital Sign - Last 24 Hours 06/29/20 06/29/20 06/29/20 06/29/20 09:11 11:45 16:45 22:28 Temp 98.4 99.2 99.3 Pulse 86 100 52 91 Resp 18 18 18 B/P (MAP) 108/52 119/56 (77) 141/57 (85) 123/57 (79) Pulse Ox 99 100 97 O2 Delivery Room Air Room Air 06/29/20 06/30/20 06/30/20 06/30/20 23:42 01:17 05:52 07:39 Temp 98.3 99.3 Pulse 90 89 Resp 18 20 B/P (MAP) 127/61 (83) 128/60 (82) Pulse Ox 99 96 O2 Delivery Room Air Room Air 06/30/20 08:21 Temp 98.8 Pulse 87 Resp 20 B/P (MAP) 144/59 (87) Pulse Ox 98 Intake and Output 06/30/20 07:00 Intake Total 2242 ml Output Total 1500 ml Balance 742 ml General: Alert, Oriented X3, Cooperative, No acute distress HEENT: Atraumatic, PERRLA, Mucous membr. moist/pink Neck: Supple, No JVD Lungs: Clear to auscultation, Normal air movement Heart: Regular rate, Other Abdomen: Normal bowel sounds, Soft, No tenderness Extremities: No cyanosis, No edema, Normal pulses, Other (Left hip swelling. Dressing is CDI. No evidence of cellulitis or redness.Pedal pulses are present. Sensory is preserved.) Skin: No rashes Neuro: Normal gait, Normal speech, Strength at 5/5 X4 ext Psych/Mental Status: Mental status NL, Mood NL, Other All Results(Lab/Rad) Laboratory Tests Test 06/25/20 16:46 06/25/20 21:00 06/26/20 04:37 06/26/20 05:30 Bedside Glucose 117 189 142 Urine Collection Type VOID Urine Color YELLOW Urine Appearance CLOUDY Urine Bilirubin NEGATIVE MG/DL Urine Ketones NEGATIVE Urine Specific Doucette 1.020 Urine pH 5.5 Urine Protein NEGATIVE Urine Urobilinogen 0.2 Urine Nitrate NEGATIVE Urine Leukocyte Esterase SMALL Urine Blood TRACE Urine RBC 0-2 RBC/HPF Urine WBC 10-25 WBC/HPF Urine Squamous Epithelial Cells FEW #/HPF Urine Bacteria MANY Urine Glucose NEGATIVE Test 06/26/20 09:15 Bedside Glucose 124 Current Medications Medications (Trade) Dose Ordered Sig/Reji Route PRN Reason Start Time Stop Time Status Last Admin Dose Admin Morphine Sulfate (Morphine Sulfate) 4 mg STAT STAT IV 06/25/20 10:07 06/25/20 10:09 DC 06/25/20 10:35 Sodium Chloride 1,000 ml @ 0 mls/hr Q0M ONCE IV 06/25/20 10:30 06/25/20 10:31 DC 06/25/20 10:35 Ondansetron HCl (Zofran) 4 mg STAT STAT IV 06/25/20 10:07 06/25/20 10:09 DC 06/25/20 10:39 Sodium Chloride 1,000 ml @ ud STK-MED ONCE .ROUTE 06/25/20 10:24 06/25/20 10:26 DC Ondansetron HCl (Zofran) 4 mg STK-MED ONCE .ROUTE 06/25/20 10:25 06/25/20 10:26 DC Morphine Sulfate (Morphine Sulfate) 4 mg STK-MED ONCE .ROUTE 06/25/20 10:25 06/25/20 10:27 DC Tramadol HCl (Ultram) 50 mg Q4HR PRN PO PAIN 1 - 3 06/25/20 13:00 07/25/20 12:59 06/25/20 22:29 Tramadol HCl (Ultram) 100 mg Q4HR PRN PO PAIN 4 - 6 06/25/20 13:00 07/25/20 12:59 Morphine Sulfate (Morphine Sulfate) 3 mg Q6HR PRN IV PAIN 7 - 10 06/25/20 13:00 06/25/20 16:33 DC Ondansetron HCl (Zofran) 4 mg Q4H PRN IV NAUSEA / VOMITING 06/25/20 13:00 07/25/20 12:59 Enoxaparin Sodium (Lovenox) 40 mg STAT STAT SQ 06/25/20 12:44 06/25/20 14:06 DC 06/25/20 14:43 Insulin Human Regular (Humulin R) ACHS SQ 06/25/20 17:30 07/25/20 17:29 Enoxaparin Sodium (Lovenox) 40 mg STK-MED ONCE SQ 06/25/20 14:10 06/25/20 14:12 DC Amlodipine Besylate (Norvasc) 5 mg DAILY PO 06/26/20 09:00 07/26/20 08:59 Aspirin (Aspirin Ec) 81 mg DAILY PO 06/26/20 09:00 07/26/20 08:59 Pantoprazole Sodium (Protonix) 40 mg DAILY PO 06/26/20 09:00 07/26/20 08:59 Fenofibrate (Tricor) 145 mg DAILY PO 06/26/20 09:00 07/26/20 08:59 Haloperidol (Haldol) 5 mg HS PO 06/25/20 21:00 07/25/20 20:59 06/25/20 21:00 Levothyroxine Sodium (Synthroid) 75 mcg ACB PO 06/26/20 06:30 07/26/20 06:29 Losartan Potassium (Cozaar) 50 mg DAILY PO 06/26/20 09:00 07/26/20 08:59 Benztropine Mesylate (Cogentin) 0.5 mg BID PO 06/25/20 21:00 07/25/20 20:59 06/25/20 21:02 Gabapentin (Neurontin) 600 mg HS PO 06/25/20 21:00 07/25/20 20:59 06/25/20 21:01 Loratadine (Claritin) 10 mg DAILY PO 06/26/20 09:00 07/26/20 08:59 Mirtazapine (Remeron) 30 mg HS PO 06/25/20 21:00 07/25/20 20:59 06/25/20 20:59 Ropinirole HCl (Requip) 0.5 mg HS PO 06/25/20 21:00 07/25/20 20:59 06/25/20 21:02 Morphine Sulfate (Morphine Sulfate) 3 mg Q6HR PRN IV PAIN 7 - 10 06/25/20 16:33 07/25/20 12:59 Ropinirole HCl (Requip) 1 mg STK-MED ONCE .ROUTE 06/25/20 20:19 06/25/20 20:21 DC Benztropine Mesylate (Cogentin) 1 mg STK-MED ONCE .ROUTE 06/25/20 20:21 06/25/20 20:22 DC Haloperidol (Haldol) 5 mg STK-MED ONCE .ROUTE 06/25/20 20:21 06/25/20 20:23 DC Nicotine (Nicotine 21mg Patch) 1 each DAILY TD 06/25/20 21:00 07/25/20 20:59 06/25/20 22:28 Nicotine (Nicotine 21mg Patch) 1 each STK-MED ONCE TD 06/25/20 21:45 06/25/20 21:48 DC Sodium Chloride 1,000 ml @ ud STK-MED ONCE .ROUTE 06/26/20 08:42 06/26/20 08:44 DC Sodium Chloride 1,000 ml @ 100 mls/hr Q10H IV 06/26/20 09:00 07/26/20 08:59 Hydromorphone HCl (Dilaudid) 0.5 mg OT ONCE IV 06/26/20 11:00 06/26/20 12:25 DC 06/26/20 11:18 Sodium Chloride 100 ml @ ud STK-MED ONCE IV 06/26/20 12:15 06/26/20 12:17 DC Cefazolin Sodium (Ancef) 1 gm STK-MED ONCE .ROUTE 06/26/20 12:15 06/26/20 12:18 DC Sodium Chloride (Sodium Chloride Irr Bottle) 1,000 ml STK-MED ONCE IR 06/26/20 12:21 06/26/20 12:23 DC Sodium Chloride 1,000 ml @ ud STK-MED ONCE .ROUTE 06/26/20 13:01 06/26/20 13:03 DC Bupivacaine HCl (Sensorcaine 0.5% Vial) 5 mg STK-MED ONCE .ROUTE 06/26/20 13:01 06/26/20 13:03 DC Acetaminophen 100 ml @ ud STK-MED ONCE IV 06/26/20 13:01 06/26/20 13:03 DC Lidocaine HCl (Lidocaine 2% Vial) 500 mg STK-MED ONCE .ROUTE 06/26/20 13:02 06/26/20 13:04 DC Tranexamic Acid (Tranexamic Acid) 1,000 mg STK-MED ONCE .ROUTE 06/26/20 13:02 06/26/20 13:04 DC Ondansetron HCl (Zofran) 4 mg STK-MED ONCE .ROUTE 06/26/20 13:02 06/26/20 13:04 DC Fentanyl Citrate (Sublimaze) 50 mcg STK-MED ONCE .ROUTE 06/26/20 13:03 06/26/20 13:05 DC Propofol (Diprivan) 200 mg STK-MED ONCE IV 06/26/20 13:03 06/26/20 13:05 DC Sterile Water (Water) 1,000 ml STK-MED ONCE .ROUTE 06/26/20 13:57 06/26/20 13:59 DC Course Sepsis Screening Results: Posi: NEGATIVE Sepsis Qualifier/Stage: NO DEFINITE RISK Duration or Total Time Spent w: 16M Vitals & review Data Vital Sign - Last 24 Hours 06/25/20 06/25/20 06/25/20 06/26/20 16:13 20:15 22:55 00:15 Temp 98.1 98.5 98.3 Pulse 74 72 86 Resp 20 20 B/P (MAP) 132/60 (84) 103/46 (65) Pulse Ox 97 95 O2 Delivery Room Air Room Air Room Air 06/26/20 06/26/20 06/26/20 04:00 07:26 07:30 Temp 98.1 97.7 Pulse 80 74 Resp 18 18 B/P (MAP) 149/47 (81) 143/57 (85) Pulse Ox 97 93 O2 Delivery Room Air Room Air Intake and Output 06/26/20 06:59 Intake Total 850 ml Output Total 1100 ml Balance -250 ml Laboratory Tests Test 06/25/20 10:20 06/25/20 10:29 06/25/20 16:46 06/25/20 21:00 White Blood Count 20.0 10^3/uL Red Blood Count 4.20 10^6/uL Hemoglobin 13.1 g/dL Hematocrit 37.4 % Mean Corpuscular Volume 89.0 fL Mean Corpuscular Hemoglobin 31.2 pg Mean Corpuscular Hemoglobin Concent 35.0 g/dL Red Cell Distribution Width 13.1 % Platelet Count 331 10^3/uL Mean Platelet Volume 9.8 fL Neutrophils (%) (Auto) 88.1 % Lymphocytes (%) (Auto) 4.0 % Monocytes (%) (Auto) 7.6 % Neutrophils # (Auto) 17.6 10^3/uL Lymphocytes # (Auto) 0.79 10^3/uL1 Monocytes # (Auto) 1.5 10^3/uL Absolute Immature Granulocyte (auto 0.04 10^3 u/L Absolute Eosinophils (auto) 0.0 10^3/uL Immature Granulocytes % 0.20 % Eosinophils % 0.0 % Basophils % 0.1 % Basophils # 0.0 10^3/uL Prothrombin Time 10.6 SEC Prothrombin Time INR (Non-Therap) 1.0 Activated Partial Thromboplast Time 26.5 SEC Sodium Level 128 mmol/L Potassium Level 3.9 mmol/L Chloride Level 93.0 mmol/L Carbon Dioxide Level 23.1 mmol/L Anion Gap 15.8 Blood Urea Nitrogen 8 mg/dL Creatinine 0.96 mg/dL Estimated GFR () 68.4 Est GFR (CKD-EPI)(Non-Afr Mauritian) 56.5 BUN/Creatinine Ratio 8.0 Glucose Level 181 mg/dL Calcium Level 8.9 mg/dL Total Bilirubin 0.3 mg/dL Aspartate Amino Transf (AST/SGOT) 21 U/L Alanine Aminotransferase (ALT/SGPT) 13 U/L Alkaline Phosphatase 111 U/L Total Creatine Kinase 253 U/L Creatine Kinase MB 2.8 ng/mL Troponin I < 0.02 ng/mL Pro-B-Type Natriuretic Peptide 76 pg/mL Total Protein 6.7 g/dL Albumin 3.4 g/dL Globulin 3.3 Albumin/Globulin Ratio 1.030 Differential Total Cells Counted 100 #CELLS Segmented Neutrophils 86 % Band Neutrophils 1 % Lymphocytes 5 % Monocytes 8 % Platelet Estimate ADEQUATE Platelet Morphology NORMAL Blood Morphology Comment NORMAL MORPHOLOGY Bedside Glucose 117 189 Test 06/26/20 04:37 06/26/20 05:30 06/26/20 09:15 Bedside Glucose 142 124 Urine Collection Type VOID Urine Color YELLOW Urine Appearance CLOUDY Urine Bilirubin NEGATIVE MG/DL Urine Ketones NEGATIVE Urine Specific Doucette 1.020 Urine pH 5.5 Urine Protein NEGATIVE Urine Urobilinogen 0.2 Urine Nitrate NEGATIVE Urine Leukocyte Esterase SMALL Urine Blood TRACE Urine RBC 0-2 RBC/HPF Urine WBC 10-25 WBC/HPF Urine Squamous Epithelial Cells FEW #/HPF Urine Bacteria MANY Urine Glucose NEGATIVE Current Medications Medications (Trade) Dose Ordered Sig/Reji PRN Reason Start Time Stop Time Status Last Admin Amlodipine Besylate (Norvasc) 5 mg DAILY 06/26/20 09:00 07/26/20 08:59 Aspirin (Aspirin Ec) 81 mg DAILY 06/26/20 09:00 07/26/20 08:59 Benztropine Mesylate (Cogentin) 0.5 mg BID 06/25/20 21:00 07/25/20 20:59 06/25/20 21:02 Fenofibrate (Tricor) 145 mg DAILY 06/26/20 09:00 07/26/20 08:59 Gabapentin (Neurontin) 600 mg HS 06/25/20 21:00 07/25/20 20:59 06/25/20 21:01 Haloperidol (Haldol) 5 mg HS 06/25/20 21:00 07/25/20 20:59 06/25/20 21:00 Insulin Human Regular (Humulin R) ACHS 06/25/20 17:30 07/25/20 17:29 Levothyroxine Sodium (Synthroid) 75 mcg ACB 06/26/20 06:30 07/26/20 06:29 Loratadine (Claritin) 10 mg DAILY 06/26/20 09:00 07/26/20 08:59 Losartan Potassium (Cozaar) 50 mg DAILY 06/26/20 09:00 07/26/20 08:59 Mirtazapine (Remeron) 30 mg HS 06/25/20 21:00 07/25/20 20:59 06/25/20 20:59 Morphine Sulfate (Morphine Sulfate) 3 mg Q6HR PRN PAIN 7 - 10 06/25/20 16:33 07/25/20 12:59 Nicotine (Nicotine 21mg Patch) 1 each DAILY 06/25/20 21:00 07/25/20 20:59 06/25/20 22:28 Ondansetron HCl (Zofran) 4 mg Q4H PRN NAUSEA / VOMITING 06/25/20 13:00 07/25/20 12:59 Pantoprazole Sodium (Protonix) 40 mg DAILY 06/26/20 09:00 07/26/20 08:59 Ropinirole HCl (Requip) 0.5 mg HS 06/25/20 21:00 07/25/20 20:59 06/25/20 21:02 Sodium Chloride 1,000 ml @ 100 mls/hr Q10H 06/26/20 09:00 07/26/20 08:59 Tramadol HCl (Ultram) 50 mg Q4HR PRN PAIN 1 - 3 06/25/20 13:00 07/25/20 12:59 06/25/20 22:29 Tramadol HCl (Ultram) 100 mg Q4HR PRN PAIN 4 - 6 06/25/20 13:00 07/25/20 12:59 LEVEL 1 SEPSIS INFECTION CRITE: Recent Invasive Procedure LEVEL 2-SIRS (LIST ALL THAT AP: None/Not assessed Cardiovascular Evidence: Not Assessed or None Hematologic Evidence: None/Not assessed Hepatic Evidence: None/Not assessed Metabolic Evidence: None/Not assessed Neurological Evidence: None/Not assessed Respiratory Evidence: None/Not assessed Renal Evidence: None/Not assessed O2 Sat by Pulse Oximetry: 98 Oxygen Flow Rate: 10 Assessment/Plan Assessment/Plan Problems: (1) Fracture, hip Status: Acute ICD Code: S72.009A - Fracture of unspecified part of neck of unspecified femur, initial encounter for closed fracture SNOMED: [id number] Plan Left hip fracture- post op day #4, TTWB, walker monitor pain monitor dressing DVT prophylaxis- d/c Xarelto. Start ASA 81 mg BID x30 days tomorrow plan: from ortho standpoint patient is ready for discharge home with home he alth. PT/OT eval and treat. TTWB. Keep dressing intact. Will have patient follow up at Dr Heaton office on Friday07/03/20 at 1030.Any questions or concerns call [phone] Problem Qualifiers (1) Fracture, hip: Laterality: left SERA,JAYDA H DIRECTOR OF MANAGED CARE Jun 30, 2020 08:59
[2020-06-30] MEDS: NORVASC PO SCH (09:00)
[2020-06-30] MEDS: COZAAR PO SCH (09:00)
[2020-06-30] MEDS: CLARITIN PO SCH (09:00)
[2020-06-30] MEDS: PROTONIX PO SCH (09:01)
[2020-06-30] MEDS: PEPCID PO SCH (09:01)
[2020-06-30] MEDS: XARELTO PO SCH (09:01)
[2020-06-30] MEDS: TRICOR PO SCH (09:01)
[2020-06-30] MEDS: OFIRMEV IV SCH (09:05)
[2020-06-30] MEDS ORDERED: NICO-450 TD (09:08)
[2020-06-30] MEDS ORDERED: SENN8.6T98 PO (09:08)
[2020-06-30] MEDS ORDERED: TRAM50TA PO (09:08)
--- NOTE | 2020-06-30 09:15 | PRM.DC ---
Subjective Subjective Date of Discharge: Jun 30, 2020 Time of Request to Discharge: 09:10 Subjective No acute events overnight, vital signs stable patient ready to go home. Hemoglobin stable 8.1.. Patient at home health with wound VAC to left hip status post arthroplasty to left hip follow-up with PCP as well as orthopedic surgery Patient History: Patient reports no known family medical history. Constitutional: denies no symptoms reported, denies see HPI, denies chills, denies diaphoresis, denies fever, denies malaise, denies weakness, denies other EENTM: denies no symptoms reported, denies see HPI, denies eye pain, denies b lurred vision, denies tearing, denies double vision, denies ear pain, denies ear discharge, denies nose pain, denies nose congestion, denies throat pain, denies throat swelling, denies mouth pain, denies mouth swelling, denies other Respiratory: denies no symptoms reported, denies see HPI, denies cough, denies orthopnea, denies shortness of breath, denies SOB with exertion, denies SOB at rest, denies stridor, denies wheezing, denies other Cardiovascular: denies no symptoms reported, denies see HPI, denies chest pain, denies edema, denies irregular heart rate, denies lightheadedness, denies palpitations, denies syncope, denies other ABD/GI (ROS): denies no symptoms reported, denies see HPI, denies abdomen distended, denies abdominal pain, denies blood streaked bowels, denies constipated, denies diarrhea, denies difficulty swallowing, denies nausea, denies poor appetite, denies poor fluid intake, denies rectal bleeding, denies vomiting, denies other Genitourinary: denies no symptoms reported, denies see HPI, denies burning, denies dysuria, denies discharge, denies frequency, denies flank pain, denies hematuria, denies incontinence, denies pain, denies urgency, denies other Musculoskeletal: see HPI, other (Left hip pain) Skin: denies no symptoms reported, denies see HPI, denies change in color, denies change in hair/nails, denies dryness, denies lesions, denies lumps, denies rash, denies other Psychiatric/Neurological: denies no symptoms reported, denies see HPI, denies anxiety, denies depressed, denies emotional problems, denies headache, denies numbness, denies paresthesia, denies pre-existing deficit, denies seizure, denies tingling, denies tremors, denies weakness, denies other Endocrine: denies no symptoms reported, denies see HPI, denies excessive sweating, denies flushing, denies intolerance to cold, denies intolerance to heat, denies increased hunger, denies increased thrist, denies increased urine, denies unexplained weight gain, denies unexplaned weight loss, denies other Hematologic/Lymphatic: denies no symptoms reported, denies see HPI, denies anemia, denies blood clots, denies easy bleeding, denies easy bruising, denies swollen glands, denies other All Other Systems: Reviewed and Negative Exam Vital Signs Vital Signs Date Time Temp Pulse Resp B/P (MAP) Pulse Ox O2 Delivery O2 Flow Rate FiO2 06/30/20 09:00 144/59 06/30/20 09:00 87 06/30/20 08:21 98.8 20 98 06/30/20 07:39 Room Air 06/26/20 16:05 10 General Appearance: Alert, Oriented X3, Cooperative, No acute distress HEENT: Atraumatic, PERRLA, EOMI Respiratory: Clear to auscultation, Normal air movement Cardiovascular: Regular rate, Normal S1 Abdominal: Normal bowel sounds, Soft Extremities: No clubbing, No cyanosis, Other (Some tenderness and pain related to left hip arthroplasty with wound VAC in place.) Skin: No rash, No breakdown Neuro: Normal speech, Sensation intact, Cranial nerves 3-12 NL Psych/Mental Status: Mental status NL, Mood NL VTE VTE Risk Total Score: 2 VTE Risk Score VTE Risk: Score 0-1 = Low Risk (Aggressive mobilization; early ambulation; no VTE prophylaxis required) Score 2: Moderate Risk (Intermittent/Pneumatic Compression Device OR Lovenox/Heparin/Coumadin) Score 3-4: High Risk (Intermittent/Pneumatic Compression Device AND Lovenox/Heparin/Coumadin) Score > or =5: Highest Risk (Intermittent/Pneumatic Compression Device AND Lovenox/Heparin/Coumadin) Antico:Hep/LMWH/Coum/Xarelto: Yes Mechanical device ordered: Yes Objective Vitals and I/O Vital Sign - Last 24 Hours 06/29/20 06/29/20 06/29/20 06/29/20 09:11 11:45 16:45 22:28 Temp 98.4 99.2 99.3 Pulse 86 100 52 91 Resp 18 18 18 B/P (MAP) 108/52 119/56 (77) 141/57 (85) 123/57 (79) Pulse Ox 99 100 97 O2 Delivery Room Air Room Air 06/29/20 06/30/20 06/30/20 06/30/20 23:42 01:17 05:52 07:39 Temp 98.3 99.3 Pulse 90 89 Resp 18 20 B/P (MAP) 127/61 (83) 128/60 (82) Pulse Ox 99 96 O2 Delivery Room Air Room Air 06/30/20 06/30/20 06/30/20 08:21 09:00 09:00 Temp 98.8 Pulse 87 87 Resp 20 B/P (MAP) 144/59 (87) 144/59 144/59 Pulse Ox 98 Intake and Output 06/30/20 07:00 Intake Total 2242 ml Output Total 1500 ml Balance 742 ml General: Alert, Oriented X3, Cooperative, No acute distress HEENT: Atraumatic, PERRLA, Mucous membr. moist/pink Neck: Supple, No JVD Lungs: Clear to auscultation, Normal air movement Heart: Regular rate, Other Abdomen: Normal bowel sounds, Soft, No tenderness Extremities: No cyanosis, No edema, Normal pulses, Other (Left hip swelling. Dressing is CDI. No evidence of cellulitis or redness.Pedal pulses are present. Sensory is preserved.Wound VAC in place) Skin: No rashes Neuro: Normal gait, Normal speech, Strength at 5/5 X4 ext Psych/Mental Status: Mental status NL, Mood NL, Other All Results(Lab/Rad) Laboratory Tests Test 06/25/20 16:46 06/25/20 21:00 06/26/20 04:37 06/26/20 05:30 Bedside Glucose 117 189 142 Urine Collection Type VOID Urine Color YELLOW Urine Appearance CLOUDY Urine Bilirubin NEGATIVE MG/DL Urine Ketones NEGATIVE Urine Specific [place] 1.020 Urine pH 5.5 Urine Protein NEGATIVE Urine Urobilinogen 0.2 Urine Nitrate NEGATIVE Urine Leukocyte Esterase SMALL Urine Blood TRACE Urine RBC 0-2 RBC/HPF Urine WBC 10-25 WBC/HPF Urine Squamous Epithelial Cells FEW #/HPF Urine Bacteria MANY Urine Glucose NEGATIVE Test 06/26/20 09:15 Bedside Glucose 124 Current Medications Medications (Trade) Dose Ordered Sig/Reji Route PRN Reason Start Time Stop Time Status Last Admin Dose Admin Morphine Sulfate (Morphine Sulfate) 4 mg STAT STAT IV 06/25/20 10:07 06/25/20 10:09 DC 06/25/20 10:35 Sodium Chloride 1,000 ml @ 0 mls/hr Q0M ONCE IV 06/25/20 10:30 06/25/20 10:31 DC 06/25/20 10:35 Ondansetron HCl (Zofran) 4 mg STAT STAT IV 06/25/20 10:07 06/25/20 10:09 DC 06/25/20 10:39 Sodium Chloride 1,000 ml @ ud STK-MED ONCE .ROUTE 06/25/20 10:24 06/25/20 10:26 DC Ondansetron HCl (Zofran) 4 mg STK-MED ONCE .ROUTE 06/25/20 10:25 06/25/20 10:26 DC Morphine Sulfate (Morphine Sulfate) 4 mg STK-MED ONCE .ROUTE 06/25/20 10:25 06/25/20 10:27 DC Tramadol HCl (Ultram) 50 mg Q4HR PRN PO PAIN 1 - 3 06/25/20 13:00 07/25/20 12:59 06/25/20 22:29 Tramadol HCl (Ultram) 100 mg Q4HR PRN PO PAIN 4 - 6 06/25/20 13:00 07/25/20 12:59 Morphine Sulfate (Morphine Sulfate) 3 mg Q6HR PRN IV PAIN 7 - 10 06/25/20 13:00 06/25/20 16:33 DC Ondansetron HCl (Zofran) 4 mg Q4H PRN IV NAUSEA / VOMITING 06/25/20 13:00 07/25/20 12:59 Enoxaparin Sodium (Lovenox) 40 mg STAT STAT SQ 06/25/20 12:44 06/25/20 14:06 DC 06/25/20 14:43 Insulin Human Regular (Humulin R) ACHS SQ 06/25/20 17:30 07/25/20 17:29 Enoxaparin Sodium (Lovenox) 40 mg STK-MED ONCE SQ 06/25/20 14:10 06/25/20 14:12 DC Amlodipine Besylate (Norvasc) 5 mg DAILY PO 06/26/20 09:00 07/26/20 08:59 Aspirin (Aspirin Ec) 81 mg DAILY PO 06/26/20 09:00 07/26/20 08:59 Pantoprazole Sodium (Protonix) 40 mg DAILY PO 06/26/20 09:00 07/26/20 08:59 Fenofibrate (Tricor) 145 mg DAILY PO 06/26/20 09:00 07/26/20 08:59 Haloperidol (Haldol) 5 mg HS PO 06/25/20 21:00 07/25/20 20:59 06/25/20 21:00 Levothyroxine Sodium (Synthroid) 75 mcg ACB PO 06/26/20 06:30 07/26/20 06:29 Losartan Potassium (Cozaar) 50 mg DAILY PO 06/26/20 09:00 07/26/20 08:59 Benztropine Mesylate (Cogentin) 0.5 mg BID PO 06/25/20 21:00 07/25/20 20:59 06/25/20 21:02 Gabapentin (Neurontin) 600 mg HS PO 06/25/20 21:00 07/25/20 20:59 06/25/20 21:01 Loratadine (Claritin) 10 mg DAILY PO 06/26/20 09:00 07/26/20 08:59 Mirtazapine (Remeron) 30 mg HS PO 06/25/20 21:00 07/25/20 20:59 06/25/20 20:59 Ropinirole HCl (Requip) 0.5 mg HS PO 06/25/20 21:00 07/25/20 20:59 06/25/20 21:02 Morphine Sulfate (Morphine Sulfate) 3 mg Q6HR PRN IV PAIN 7 - 10 06/25/20 16:33 07/25/20 12:59 Ropinirole HCl (Requip) 1 mg STK-MED ONCE .ROUTE 06/25/20 20:19 06/25/20 20:21 DC Benztropine Mesylate (Cogentin) 1 mg STK-MED ONCE .ROUTE 06/25/20 20:21 06/25/20 20:22 DC Haloperidol (Haldol) 5 mg STK-MED ONCE .ROUTE 06/25/20 20:21 06/25/20 20:23 DC Nicotine (Nicotine 21mg Patch) 1 each DAILY TD 06/25/20 21:00 07/25/20 20:59 06/25/20 22:28 Nicotine (Nicotine 21mg Patch) 1 each STK-MED ONCE TD 06/25/20 21:45 06/25/20 21:48 DC Sodium Chloride 1,000 ml @ ud STK-MED ONCE .ROUTE 06/26/20 08:42 06/26/20 08:44 DC Sodium Chloride 1,000 ml @ 100 mls/hr Q10H IV 06/26/20 09:00 07/26/20 08:59 Hydromorphone HCl (Dilaudid) 0.5 mg OT ONCE IV 06/26/20 11:00 06/26/20 12:25 DC 06/26/20 11:18 Sodium Chloride 100 ml @ ud STK-MED ONCE IV 06/26/20 12:15 06/26/20 12:17 DC Cefazolin Sodium (Ancef) 1 gm STK-MED ONCE .ROUTE 06/26/20 12:15 06/26/20 12:18 DC Sodium Chloride (Sodium Chloride Irr Bottle) 1,000 ml STK-MED ONCE IR 06/26/20 12:21 06/26/20 12:23 DC Sodium Chloride 1,000 ml @ ud STK-MED ONCE .ROUTE 06/26/20 13:01 06/26/20 13:03 DC Bupivacaine HCl (Sensorcaine 0.5% Vial) 5 mg STK-MED ONCE .ROUTE 06/26/20 13:01 06/26/20 13:03 DC Acetaminophen 100 ml @ ud STK-MED ONCE IV 06/26/20 13:01 06/26/20 13:03 DC Lidocaine HCl (Lidocaine 2% Vial) 500 mg STK-MED ONCE .ROUTE 06/26/20 13:02 06/26/20 13:04 DC Tranexamic Acid (Tranexamic Acid) 1,000 mg STK-MED ONCE .ROUTE 06/26/20 13:02 06/26/20 13:04 DC Ondansetron HCl (Zofran) 4 mg STK-MED ONCE .ROUTE 06/26/20 13:02 06/26/20 13:04 DC Fentanyl Citrate (Sublimaze) 50 mcg STK-MED ONCE .ROUTE 06/26/20 13:03 06/26/20 13:05 DC Propofol (Diprivan) 200 mg STK-MED ONCE IV 06/26/20 13:03 06/26/20 13:05 DC Sterile Water (Water) 1,000 ml STK-MED ONCE .ROUTE 06/26/20 13:57 06/26/20 13:59 DC Medication Reconciliation Scheduled Amlodipine Besylate (Amlodipine Besylate), 1 TAB PO DAILY, (Reported) Aspirin (Aspir-Low), 1 TAB PO DAILY, (Reported) Benztropine Mesylate (Benztropine Mesylate), 1 TAB PO BID, (Reported) Esomeprazole Magnesium (Nexium), 1 CAP PO DAILY, (Reported) Fenofibrate Nanocrystallized (Fenofibrate), 1 TAB PO DAILY, (Reported) Gabapentin (Gabapentin), 1 TAB PO HS, (Reported) Haloperidol (Haloperidol), 1 TAB PO HS, (Reported) Levocetirizine Dihydrochloride (Levocetirizine Dihydrochloride), 1 TAB PO HS, (Reported) Levothyroxine Sodium (Levothyroxine Sodium), 1 TAB PO DAILY, (Reported) Losartan Potassium (Losartan Potassium), 1 TAB PO DAILY, (Reported) Mirtazapine (Mirtazapine), 1 TAB PO HS, (Reported) Nicotine (Nicotine Patch), 1 EACH TD Q24HRS Ropinirole Hcl (Requip), 1 TAB PO HS, (Reported) Sennosides (Senokot), 1 TAB PO BID Scheduled PRN Tramadol Hcl (Tramadol Hcl), 50 MG PO Q6H PRN for PAIN 4 - 6 Plan Assessment No acute distress, vital signs stable, hemoglobin Stable at 8.1 patient was transfused with 2 units of PRBC During hospital visitstatus post left hip surgery wound VAC in place clean dry and intact. No visible bleeding. Will recheck CBC Patient will be going home with home health with family, 1) COPD (chronic obstructive pulmonary disease) Patient appears stable. There is no respiratory distress. Continue Home medication (2) Diabetes 1.5, managed as type 2 Continue proper diet follow-up with PCP Resume home medications (3) Fracture, hip Patient is on the POD day 4 for left hip surgery. monitor dressing wound vac in place cdi monitor painTramadol Anemia- Hgb 8.1 today. We will continue aspirin as an outpatient PT/OT eval and treat- walker, TTWB LLE, safety precautions Patient is post transfusion of 2 units packed RBCWhile she was admitted. Pain appears controlled. Patient preferred to go home with a daughter and home health care for PT OT. They refused to go to rehab. (4) Paranoid schizophrenia Patient appears stable. Resume the home medications for schizophrenia including benztropine and Haldol (5). Acute anemia from blood loss. -resolved Plan My Orders - KRISTEN MARQUEZ NP Procedure Category Date Status Time Discharge DISCHARGE 06/30/20 Transmitted 09:03 KRISTEN MARQUEZ NP Jun 30, 2020 09:15
[2020-06-30] MEDS ORDERED: ASPI-667 PO (09:27)
--- NOTE | 2020-06-30 13:12 | NUR ---
PT UNDERSTOOD DISCHARGE TEACHINGS . DAUGHTER ACCOMPANIED PT TO HOME.
== END 2020-06-30 13:12 | disposition home health service (06) | DRG 481 ==
LOC: ER 10:02 → EDBD 10:02 → MS 12:06
PROVIDERS: ADMIT Internal Medicine; ATTEND Internal Medicine
PROC: 0QS704Z Reposition Left Upper Femur with Internal Fixation Device, Open Approach (ICD-10-PCS; principal; 2020-06-26 13:05)
PROC: 30233N1 Transfusion of Nonautologous Red Blood Cells into Peripheral Vein, Percutaneous Approach (ICD-10-PCS; 2020-06-27)
DX: S72.142A Displaced intertrochanteric fracture of left femur, initial encounter for closed fracture (principal); F20.0 Paranoid schizophrenia; D62 Acute posthemorrhagic anemia; J44.9 Chronic obstructive pulmonary disease, unspecified; E03.9 Hypothyroidism, unspecified; F17.200 Nicotine dependence, unspecified, uncomplicated; K21.9 Gastro-esophageal reflux disease without esophagitis; E13.9 Other specified diabetes mellitus without complications; Y99.8 Other external cause status; Y92.000 Kitchen of unspecified non-institutional (private) residence as the place of occurrence of the external cause; W18.39XA Other fall on same level, initial encounter; Z79.4 Long term (current) use of insulin; Y93.89 Activity, other specified; Z88.2 Allergy status to sulfonamides; Z88.7 Allergy status to serum and vaccine; Z88.8 Allergy status to other drugs, medicaments and biological substances; Z79.82 Long term (current) use of aspirin; Z79.899 Other long term (current) drug therapy; Z90.49 Acquired absence of other specified parts of digestive tract
CPT/HCPCS: 36415; 36430; 71045; 72170; 73502; 76000; 80053; 81000; 82550; 82553; 82948; 83880; 84484; 85014; 85018; 85025; 85027; 85610; 85730; 86885; 86900; 86901; 86923; 87077; 87086; 93005; 97162; 97166; 97530; 99285; A4217; A6550; C1713; G0378; J0131; J0690; J1650; J2001; J2250; J2270; J2405; J3010; J3490; J7030; J7050; P9016; 73550-LT; 97110-GP; 97535-GO

== ENCOUNTER 2022-11-14 12:11 | Emergency (ER) | payer MEDICARE, MEDICAID ==
[2022-11-14] VITALS (8 sets, daily range): BP systolic 121–139; BP diastolic 39–96
[~2022-11-14] VITALS: Ht 165.1 cm; Wt 48.5 kg
[~2022-11-14 12:11] MED LIST changes: +ASPI-667 PO; +MIRT-14 PO; -MIRT30TA4 PO; +NICO-532 TD; +SENN8.6T98 PO; +TRAM50TA PO
--- NOTE | 2022-11-14 12:12 | NUR ---
ARRIVAL PATIENT ARRIVED TO ED3 VIA GURNEY BY [facility], C/O TAILBONE AND LEFT LEG PAIN FROM A FALL X2 DAYS AGO, PATIENT IS USUALLY ABLE TO TRANSFER FROM HER W/C TO HER CHAIR, SINCE THE FALL PATIENT IS UNABLE TO TRANSFER, CAME TO THE ED FOR EVAL, DENIES LOC, VITAL SIGNS TAKEN AND DOCTOR NOTIFIED OF PATIENT'S ARRIVAL.
--- NOTE | 2022-11-14 13:16 | DIREP ---
PROCEDURE:CT PELVIS W/O COMPARISON:None. INDICATIONS:fall rt hip and back pain TECHNIQUE:Axial images were created through the pelvis without intravenous contrast material. No oral contrast was administered. Sagittal and coronal reconstructions were performed from source images. FINDINGS: AORTA/VASCULAR:Moderate calcific atheromatous plaque in the visualized distal aorta. RETROPERITONEUM:Unremarkable. BOWEL/MESENTERY:Normal. There is no intestinal obstruction, free fluid, free air or mesenteric inflammatory changes. ABDOMINAL WALL:Normal. No mass or hernia. PELVIC ORGANS:Normal. No visible mass. Pelvic organs appropriate for patient age. BONES:Diffuse osseous demineralization. A comminuted fracture is identified in the right inferior pubic ramus and 2 separate points, 1 more anteriorly and 1 more in the mid posterior portion. A subtle minimally displaced fracture is seen within the right sacral ala for example axial image 15 series 4. Slight angulation seen on the sagittal images in the superior aspect of the S2 vertebral body, could be a subtle fracture. Subtle lucency identified involving the right superior pubic ramus extending into the central portion of the anterior acetabulum this is best identified on coronal image 42 series 8031 as well as image 43, 44, and 45. Remote healed fracture deformity in the left intratrochanteric region. The hardware appears intact and unremarkable to the extent visualized. Mild heterotopic ossification seen in the adjacent region. Moderate degenerative changes in the pubic symphysis and mild degenerative changes in the bilateral SI joints. Moderate right and mild left hip joint space loss osteophytic spurring. OTHER:Negative. CONCLUSION: 1. Fracture of the right inferior pubic ramus, with 2 separate parts, 1 more anterior and 1 more in the mid to posterior portion. 2. Subtle fracture of the right inferior pubic ramus extending into the anterior right acetabulum. 3. Subtle fracture in the right sacral ala. 4. Slight angulation of the superior aspect of S2 suspected to represent a fracture. 5. Diffuse osseous demineralization and other chronic findings as detailed above. Dictated by: Brenden Donovan MD. On 11/14/2022 at 01:07 PM
--- NOTE | 2022-11-14 13:25 | DIREP ---
PROCEDURE: CT SPINE LUMBAR W/O TECHNIQUE:Axial cuts were obtained through the lumbar spine. The images were viewed at bone settings. COMPARISON:[facility], CT, CT PELVIS W/O, 11/14/2022, 12:46 PM. INDICATIONS:fall pain FINDINGS: ALIGNMENT:Mild levocurvature of the lumbar spine. VERTEBRAE:Mild degenerative endplate changes. No fractures or osseous lesions. PARASPINAL AREA:There is cortical irregularity of the right sacral ala which likely represents an acute fracture. Surgical changes of left femoral intramedullary saundra placement. OTHER:There is severe atherosclerosis. No aneurysm. There is diffuse atrophy of the spleen with a prominent soft tissue lesion measuring 3.2 x 1.9 x 1.8 cm. Cholecystectomy. LUMBAR DISC LEVELS T12-L1:No spinal canal or neural foraminal stenosis. L1-L2:No spinal canal or neural foraminal stenosis. L2-L3:Mild facet hypertrophy. No substantial spinal canal or neural foraminal stenosis. L3-L4:Small broad-based disc bulge with mild facet hypertrophy. Mild spinal canal stenosis and mild bilateral neural foraminal stenosis. L4-L5:Small broad-based disc bulge with moderate facet hypertrophy and ligamentum flavum thickening. Moderate spinal canal stenosis. Moderate left and mild right neural foraminal stenosis. L5-S1:There is a small broad-based disc bulge with moderate facet hypertrophy. Moderate spinal canal stenosis and mild bilateral neural foraminal stenosis. CONCLUSION: 1. No acute osseous abnormality of the lumbar spine. 2. Multilevel degenerative changes are greatest at L4-L5 where there is moderate spinal canal stenosis and moderate left neural foraminal stenosis. 3. Abnormal soft tissue lesion in the body of the pancreas. Recommend pancreatic protocol CT or MRI for further evaluation. 4. Acute fracture of the right sacral ala. Please refer to the same day CT pelvis for further evaluation. Dictated by: Oscar Herrmann M.D. on 11/14/2022 at 01:17 PM
--- NOTE | 2022-11-14 13:44 | DIREP ---
PROCEDURE:XRAY FEMUR 2 VWS-RT COMPARISON:[facility], CT, CT PELVIS W/O, 11/14/2022, 12:46 PM. [facility], CR, XRAY PELVIS 1-2 VWS, 06/25/2020, 12:34 PM. [facility], CR, XRAY FEMUR 2 VWS-RT, 04/15/2018, 09:36 AM. INDICATIONS:fall pain FINDINGS: BONES:Nondisplaced fracture involving the right superior pubic ramus extending into the acetabulum. Probable nondisplaced inferior pubic ramus fracture. Questionable right sacral ala fracture. Plate and screw fixation distal femur about healed distal femoral metaphyseal fracture. Cross-table images limited by overlapping soft tissue and bony structures. JOINTS:Mild right hip degenerative changes. SOFT TISSUES:Limited evaluation radiographically, no gross abnormality seen. OTHER:No additional findings. CONCLUSION: 1. Right pubic rami and right sacral ala fractures. 2. No evidence of femur fracture. Dictated by: Parker Matson M.D. on 11/14/2022 at 01:32 PM
[2022-11-14 14:09] LABS: BASOPHIL % 0.1 % (0.0-0.2); EOSINOPHIL # 0.3 10^3/uL (0.0-0.2); EOSINOPHIL % 2.2 % (0.0-5.0); LYMPHOCYTES # 1.96 10^3/uL1 (1.0-4.8); LYMPHOCYTES % 14.6 % (24.0-44.0); MONOCYTES # 1.4 10^3/uL (0.3-0.8); NEUTROPHIL # 9.8 10^3/uL (1.8-7.7); PLATELET COUNT 368 10^3/uL (150-400); RED CELL DISTRIBUTION WIDTH 13.8 % (11.5-14.5)
--- NOTE | 2022-11-14 14:20 | PCM.EKG ---
[facility] Test Date: 2022-11-14 Test Time: 14:16:39 Pat Name: GODFREY BRUNSON Department: Room: Gender: F [employer] Specialist: ASHTYN : 1945 Requested By: ANA MYERS Order Number: [id number] Reading MD: Ana Myers Measurements Intervals [place] Rate: 70 P: -40 IA: 138 QRS: 84 QRSD: 82 T: 68 QT: 385 QTc: 416 Interpretive Statements Sinus rhythm Occasional PAC Borderline right axis deviation Compared to ECG 06/25/2020 10:58:15 Atrial premature complex(es) no longer present ST (T wave) deviation no longer present Electronically Signed On 11-16-2022 12:28:59 CDT by Ana Myers Please click the below link to view image of tracing.
--- NOTE | 2022-11-14 14:22 | DIREP ---
PROCEDURE:CHEST 1 VIEW COMPARISON:[facility], CR, XRAY CHEST SINGLE VW, 06/25/2020, 10:41 AM. [facility], CT, CT - CHEST ABDOMEN PELVIS WITH CONTR, 02/25/2017, 10:26 AM. INDICATIONS:dyspnea FINDINGS: LUNGS/PLEURA:There is a large round mass with lobulated margins in the left midlung. There are no other significant pulmonary parenchymal abnormalities. There are no effusions. VASCULATURE:Normal. Unremarkable pulmonary vasculature. CARDIAC:Normal. No cardiac silhouette abnormality or cardiomegaly. MEDIASTINUM:Atherosclerotic aorta with no visible aneurysm. BONES:Normal. No fracture or visible bony lesion. OTHER:Negative. CONCLUSION:LARGE LEFT PULMONARY MASS, HIGHLY SUSPICIOUS FOR MALIGNANCY. CT chest with contrast recommended to further evaluate. Dictated by: Carlos Figueroa M.D. on 11/14/2022 at 02:17 PM
--- NOTE | 2022-11-14 14:52 | NUR ---
[facility] DOCTOR RADAMES ON THE PHONE WITH [facility] AT THIS TIME DISCUSSING TRANSFER
--- NOTE | 2022-11-14 14:55 | NUR ---
PORTILLO INSERTION @1455, 16f TO GRAVITY INITIAL OUTPUT 1000mL, DARK TAMI/BROWN IN COLOR, STRONG STAGNANT ODOR
--- NOTE | 2022-11-14 14:55 | NUR ---
[facility] DOCTOR DAVID ACCEPTED PATIENT AND MEHDI MORENO
--- NOTE | 2022-11-14 15:06 | ER.PDOC ---
General Chief Complaint: Trauma Stated Complaint: FALL Time seen by MD: 12:25 Source: patient, EMS Exam Limitations: physical impairment History of Present Illness Initial Comments 77 yo wf with hpsychiatric history and significant tardive dyskinesia Reportedly fell about a week ago. Arrived via EMS with rt coccygeal as well as rt hip and leg pain. She is a heavy smoker and lives alone. She requested pain meds. Hx of prior ortho proceedures. She is appropriate but hard to understand Allergies: Coded Allergies: sulfamethoxazole (Verified Allergy, Unknown, 04/14/18) tetanus and diphtheria toxoids (Verified Allergy, Unknown, 04/14/18) trimethoprim (Verified Allergy, Unknown, 04/14/18) Home Meds Active Scripts Aspirin (ASPIRIN) 81 Mg Tab.chew, 81 MG PO BID, #60 TAB.CHEW 0 Refills Prov:KRISTEN MARQUEZ NP 06/30/20 Sennosides (SENOKOT) 8.6 Mg Tablet, 1 TAB PO BID for constipation for 20 Days, #40 TAB 0 Refills Prov:KRISTEN MARQUEZ NP 06/30/20 Tramadol Hcl (TRAMADOL HCL) 50 Mg Tablet, 50 MG PO Q6H PRN for PAIN 4 - 6 for 10 Days, #20 TAB Prov:KRISTEN MARQUEZ NP 06/30/20 Nicotine (NICOTINE PATCH) 1 Each Patch.td24, 1 EACH TD Q24HRS for 30 Days, PATCH Prov:KRISTEN MARQUEZ NP 06/30/20 Reported Medications Haloperidol (HALOPERIDOL) 5 Mg Tablet, 1 TAB PO HS, #30 TAB 2 Refills 04/14/18 Mirtazapine (MIRTAZAPINE) 30 Mg Tablet, 1 TAB PO HS, #30 TAB 2 Refills 04/14/18 Losartan Potassium (LOSARTAN POTASSIUM) 50 Mg Tablet, 1 TAB PO DAILY, #90 TAB 3 Refills 04/14/18 Levocetirizine Dihydrochloride (LEVOCETIRIZINE DIHYDROCHLORIDE) 5 Mg Tablet, 1 TAB PO HS, #30 TAB 5 Refills 04/14/18 Ropinirole Hcl (REQUIP) 0.5 Mg Tablet, 1 TAB PO HS, #30 TAB 2 Refills 04/14/18 Levothyroxine Sodium (LEVOTHYROXINE SODIUM) 75 Mcg Tablet, 1 TAB PO DAILY, #90 TAB 3 Refills 04/14/18 Amlodipine Besylate (AMLODIPINE BESYLATE) 5 Mg Tablet, 1 TAB PO DAILY, #90 TAB 3 Refills 04/14/18 Benztropine Mesylate (BENZTROPINE MESYLATE) 0.5 Mg Tablet, 1 TAB PO BID, #60 TAB 2 Refills 04/14/18 Fenofibrate Nanocrystallized (FENOFIBRATE) 145 Mg Tablet, 1 TAB PO DAILY, #90 TAB 3 Refills 04/14/18 Esomeprazole Magnesium (NEXIUM) 40 Mg Capsule.dr, 1 CAP PO DAILY, #90 CAP 3 Refills 04/14/18 Gabapentin (GABAPENTIN) 600 Mg Tablet, 1 TAB PO HS, #90 TAB 04/14/18 Past Medical History Medical History: GERD, hypertension, thyroid disease Surgical History: cholecystectomy, other Social History Alcohol Use: none Drug Use: none Results/Orders Results/Orders Orders - ANA CRUM MD Ct Pelvis Wo Iv Contrast (11/14/22 12:21) Ct Lumbar Wo Contrast (11/14/22 12:21) Xr Femur Rt (11/14/22 12:21) Cbc With Auto Diff (11/14/22 13:49) Comprehensive Metabolic Panel (11/14/22 13:49) Urinalysis (11/14/22 13:49) EKG (11/14/22 13:49) Troponin I High Sensitivity (11/14/22 13:49) Xr Chest 1v (11/14/22 13:50) [place] (11/14/22 15:07) Vital Signs Date Time Temp Pulse Resp B/P (MAP) Pulse Ox O2 Delivery O2 Flow Rate FiO2 11/14/22 15:15 97.9 71 18 122/55 (77) 98 Room Air* 0 21 11/14/22 15:15 18 11/14/22 14:15 97.9 75 18 121/57 (78) 98 Room Air* 0 21 11/14/22 14:15 18 11/14/22 13:45 97.9 71 18 138/96 (110) 98 Room Air* 0 21 11/14/22 13:45 18 11/14/22 13:15 18 11/14/22 13:15 97.9 74 18 130/94 (106) 98 Room Air* 0 21 11/14/22 12:45 97.9 71 18 127/39 (68) 98 Room Air* 0 21 11/14/22 12:45 18 11/14/22 12:12 97.9 63 18 11/14/22 12:12 97.9 63 18 98 11/14/22 12:12 18 11/14/22 12:12 97.9 63 18 139/68 (91) 98 Room Air* 0 21 Laboratory Tests Test 11/14/22 14:03 White Blood Count 13.5 10^3/uL (4.5-11.0) H Red Blood Count 4.46 10^6/uL (4.00-5.20) Hemoglobin 13.4 g/dL (12.0-15.0) Hematocrit 41.1 % (36.0-46.0) Mean Corpuscular Volume 92.2 fL (78-100) Mean Corpuscular Hemoglobin 30.0 pg (26-34) Mean Corpuscular Hemoglobin Concent 32.6 g/dL (33-36.5) L Red Cell Distribution Width 13.8 % (11.5-14.5) Platelet Count 368 10^3/uL (150-400) Mean Platelet Volume 10.0 fL (7.8-11.0) Neutrophils (%) (Auto) 73.0 % (41.0-85.0) Lymphocytes (%) (Auto) 14.6 % (24.0-44.0) L Monocytes (%) (Auto) 10.0 % (5.0-12.0) Neutrophils # (Auto) 9.8 10^3/uL (1.8-7.7) H Lymphocytes # (Auto) 1.96 10^3/uL1 (1.0-4.8) Monocytes # (Auto) 1.4 10^3/uL (0.3-0.8) H Absolute Immature Granulocyte (auto 0.02 10^3 u/L (0-2) Absolute Eosinophils (auto) 0.3 10^3/uL (0.0-0.2) H Immature Granulocytes % 0.10 % (0.00-0.50) Eosinophils % 2.2 % (0.0-5.0) Basophils % 0.1 % (0.0-0.2) Basophils # 0.0 10^3/uL (0.0-0.1) Sodium Level 137 mmol/L (132-145) Potassium Level 3.8 mmol/L (3.6-5.2) Chloride Level 100.0 mmol/L (96-109) Carbon Dioxide Level 28.0 mmol/L (20.0-32) Anion Gap 12.8 Blood Urea Nitrogen 18 mg/dL (7-18) Creatinine 0.77 mg/dL (0.59-1.40) Estimated GFR () 87.5 (>/=60) Est GFR (CKD-EPI)(Non-Afr Greek) 72.3 (>/=60) BUN/Creatinine Ratio 23.0 (10.0-20.0) H Glucose Level 109 mg/dL (70-110) Calcium Level 9.2 mg/dL (8.4-10.5) Total Bilirubin 0.4 mg/dL (0.2-1.0) Aspartate Amino Transferase (AST) 16 U/L (0-35) Alanine Aminotransferase (ALT) 16 U/L (12-78) Alkaline Phosphatase 145 U/L (50-136) H Troponin I High Sensitivity 8 ng/L (0-50) Total Protein 7.0 g/dL (6.4-8.2) Albumin 2.8 g/dL (3.4-5.0) L Globulin 4.2 Albumin/Globulin Ratio 0.666 leukocytosis: stress margination Progress Progress pelvic CT 1. Fracture of the right inferior pubic ramus, with 2 separate parts, 1 more anterior and 1 more in the mid to posterior portion. 2. Subtle fracture of the right inferior pubic ramus extending into the anterior right acetabulum. 3. Subtle fracture in the right sacral ala. 4. Slight angulation of the superior aspect of S2 suspected to represent a fracture. 5. Diffuse osseous demineralization and other chronic findings as detailed above. CT lumbar 1. No acute osseous abnormality of the lumbar spine. 2. Multilevel degenerative changes are greatest at L4-L5 where there is moderate spinal canal stenosis and moderate left neural foraminal stenosis. 3. Abnormal soft tissue lesion in the body of the pancreas. Recommend pancreatic protocol CT or MRI for further evaluation. 4. Acute fracture of the right sacral ala. Please refer to the same day CT pelvis for further evaluation. Chest LUNGS/PLEURA:There is a large round mass with lobulated margins in the left midlung. There are no other significant pulmonary parenchymal abnormalities. There are no effusions. VASCULATURE:Normal. Unremarkable pulmonary vasculature. CARDIAC:Normal. No cardiac silhouette abnormality or cardiomegaly. MEDIASTINUM:Atherosclerotic aorta with no visible aneurysm. BONES:Normal. No fracture or visible bony lesion. OTHER:Negative. CONCLUSION:LARGE LEFT PULMONARY MASS, HIGHLY SUSPICIOUS FOR MALIGNANCY. CT chest with contrast recommended to further evaluate. EKG/XRAY/CT/US EKG: NSR, rhythm, QRS EKG Comments: short pr and normal axis occ pac XRAY: chest XRAY Comments: large left tumor mass per report CT Comments: 1. No acute osseous abnormality of the lumbar spine. Consult/PCP Time Consult/PCP Called: 14:55 Consult/PCP: [facility] transfer center Reason/Comments: new diagnosis lung tumor. Rt pelvic/acetabular fracture ER DEPART Departure Time of Disposition: 15:20 Disposition: 02 SHORT TERM HOSPITAL Impression: Primary Impression: Paranoid schizophrenia Additional Impressions: Malignant lung neoplasm Right acetabular fracture Sacral fracture, closed Fracture of pubic ramus Condition: Stable Referrals: STEVEN CAUSEY (PCP) PRIMARY CARE PROVIDER Comments Patient required considerable time She had multiple orthopedic injuries and then found to have a malignant lung mass. Could not find any old records I have spoken with the patients daughter several times in person Duration or Time Spent with Pa: 60 Problem Qualifiers ANA CRUM MD Nov 14, 2022 15:06
--- NOTE | 2022-11-14 15:17 | NUR ---
DISPATCH DISPATCH NOTIFIED OF NEED OF EMS FOR TRANSFER FROM [facility] TO [facility].
--- NOTE | 2022-11-14 15:19 | NUR ---
INTAKE AND OUTPUT OUTPUT DOCUMENTED IN [facility] INTERVENTION AND PATIENT HAS HAD NO ORAL INTAKE AT HIS TIME
--- NOTE | 2022-11-14 15:20 | NUR ---
UPDATE EMS CURRENTLY ON TRANSFER TO [facility], WILL COME FOR TRANSFER WHEN AVALIABLE.
[2022-11-14 15:26] LABS: BILIRUBIN,URINE NEGATIVE (NEGATIVE); UROBILINOGEN,URINE 0.2 E.U./dL (0.2)
--- NOTE | 2022-11-14 16:35 | NUR ---
STATUS AWAITING EMS ARRIVAL FOR TRANSFER.
--- NOTE | 2022-11-14 16:40 | NUR ---
REPORT REPORT CALLED TO [facility].
--- NOTE | 2022-11-14 16:45 | NUR ---
[facility] EMS HERE FOR TRANSFER
--- NOTE | 2022-11-14 16:58 | NUR ---
[facility] OUTPUT 700mL EMPTIED AT TIME OF DEPARTURE FOR TRANSFER TO [facility].
== END 2022-11-14 16:51 | disposition short-term general hospital (02) ==
LOC: EDBD 12:11 → ER 12:11
DX: S32.10XA Unspecified fracture of sacrum, initial encounter for closed fracture (principal); S32.401A Unspecified fracture of right acetabulum, initial encounter for closed fracture; F20.0 Paranoid schizophrenia; C34.90 Malignant neoplasm of unspecified part of unspecified bronchus or lung; E07.9 Disorder of thyroid, unspecified; I10 Essential (primary) hypertension; K21.9 Gastro-esophageal reflux disease without esophagitis; F17.200 Nicotine dependence, unspecified, uncomplicated; Z90.49 Acquired absence of other specified parts of digestive tract; Z88.1 Allergy status to other antibiotic agents; Z88.2 Allergy status to sulfonamides; X58.XXXA Exposure to other specified factors, initial encounter; Y93.89 Activity, other specified; Y92.89 Other specified places as the place of occurrence of the external cause; Y99.8 Other external cause status
CPT/HCPCS: 36415; 71045; 72131; 72192; 80053; 81001; 82948; 84484; 85025; 87077; 87086; 87186; 93005; 99285; 73550-RT

== ENCOUNTER → 2022-11-21 | Outpatient (CLI) | payer MEDICARE, MEDICAID ==
[2022-11-21 13:33] LABS: BILIRUBIN,URINE NEGATIVE (NEGATIVE); UROBILINOGEN,URINE >=8.0 E.U./dL (0.2)
== END | disposition home or self-care (01) ==
LOC: NPLAB 13:20
PROVIDERS: ATTEND Internal Medicine
DX: R33.0 Drug induced retention of urine (principal); N39.43 Post-void dribbling
CPT/HCPCS: 81001; 87086; 87186